=== PATIENT | male | born 1945 | race Caucasian/White ===

== ENCOUNTER 2017-11-17 14:11 | Emergency (ER) | payer MEDICARE, OTHER ==
[2017-11-17] MEDS ORDERED: Famotidine 20 MG/2 ML SDV IVPUSH ONE (14:20)
[2017-11-17] MEDS ORDERED: Pantoprazole 40 MG Vial IVPUSH ONE (14:20)
[2017-11-17] MEDS ORDERED: Sodium Chloride 0.9% 10 ML Syringe FLUSH PRN (14:20)
--- NOTE | 2017-11-17 14:20 | EDM.PDOC ---
ED HPI GENERAL MEDICAL PROBLEM - General Chief Complaint: Abdominal Pain Stated Complaint: Abd pain Time Seen by Provider: 11/17/17 14:15 Source of Information: Reports: Patient, Care Home Records (Very limited records), Old Records ([facility] EMR. No paper hospital chart available. Very limited records available) History Limitations: Reports: Altered Mental Status - History of Present Illness INITIAL COMMENTS - FREE TEXT/NARRATIVE: The patient was brought to the emergency room via transport vehicle from [facility] in [place] for evaluation of a four-week history of somewhat progressive intermittent nonspecific generalized abdominal complaints with apparent previous recent workup by his regular providers, however specifics unknown at this time. The patient is an extremely poor historian secondary to his baseline organic brain syndrome. The patient denies any chest pain/pressure, heart flutter, dizziness, orthostasis, orthopnea, diaphoresis, paresthesias, recent decreased exercise tolerance, or any other anginal-type symptoms. No recent history of heartburn, nausea, diarrhea, melena, gross hematochezia, or any food intolerance, including fatty foods, etc. with normal bowel movement yesterday despite his history of constipation. He denies any current UTI symptoms. The patient also denies any recent fever, cough, wheezing , dyspnea, etc.. No history of recent headaches, visual changes, diplopia, change in mental status, or other change in neurological status. Onset: Gradual Duration: Week(s): (As above), Getting Worse, Intermittent Quality: Reports: Same as Previous Episode Severity: Moderate Improves with: Reports: None Worsens with: Reports: None Context: Reports: Other (As above) Associated Symptoms: Reports: Confusion (Stable chronic). 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) (None) Abdominal Pain Score (Numeric/FACES): 5 - Related Data Allergies Allergy/AdvReac Type Severity Reaction Status Date / Time amoxicillin Allergy Nausea Verified 11/17/17 14:15 cephalexin Allergy Nausea Verified 11/17/17 14:15 clavulanic acid Allergy Nausea Verified 11/17/17 14:15 [From Augmentin] codeine Allergy Nausea Verified 11/17/17 14:15 metoclopramide Allergy Nausea Verified 11/17/17 14:15 Home Meds: Home Meds Albuterol Sulfate [Proair Respiclick] 2 puff IH Q6HR PRN 11/17/17 [History] Albuterol Sulfate [Proair Respiclick] 90 mcg IH BID 11/17/17 [History] Alum Hydrox/Mag Hydrox/Simeth [Mag-Al Plus] 5 ml PO TID PRN 11/17/17 [History] Bisacodyl 5 mg PO DAILY PRN 11/17/17 [History] Calcium Carbonate [Tums Extra Strength] 750 mg PO ASDIRECTED 11/17/17 [History] Cholecalciferol (Vitamin D3) [Vitamin D3] 2,000 unit PO DAILY 11/17/17 [History] Clopidogrel Bisulfate [Clopidogrel] 75 mg PO DAILY 11/17/17 [History] Gregg Tar [Therapeutic Shampoo] 1 applic TP DAILY 11/17/17 [History] DULoxetine [Cymbalta] 60 mg PO DAILY 11/17/17 [History] Fluticasone Furoate [Flonase Sensimist] 2 sprays INH DAILY 11/17/17 [History] Folic Acid 1 mg PO DAILY@1200 11/17/17 [History] Furosemide 40 mg PO DAILY 11/17/17 [History] Insulin Aspart [NovoLOG] 3 units SUBCUT TID 11/17/17 [History] Insulin Glargine,Hum.Rec.Anlog [Lantus Solostar] 12 unit SQ DAILY 11/17/17 [ History] Isosorbide Mononitrate [Isosorbide Mononitrate ER] 60 mg PO DAILY 11/17/17 [ History] Lidocaine 4% [LMX 4 Cream with Tegaderm] 1 each TD BID 11/17/17 [History] Lidocaine 5% [Lidoderm 5%] 1,400 mg .XX BID 11/17/17 [History] Methotrexate Sodium [Methotrexate] 4 tab PO MO@0800 11/17/17 [History] Methyl Salicylate/Menthol [Muscle Rub Cream] 1 applic TD BID PRN 11/17/17 [ History] Methyl Salicylate/Menthol [Muscle Rub] 1 applic TP BID 11/17/17 [History] Metoprolol Tartrate 12.5 mg PO BID 11/17/17 [History] Nitroglycerin 0.4 mg SL ASDIRECTED PRN 11/17/17 [History] Non-Formulary Medication [NF Drug] 1 applic TD QID PRN 11/17/17 [History] Omeprazole 40 mg PO DAILY 11/17/17 [History] Pectin [Throat Drops] 6 mg PO Q2HR 11/17/17 [History] Potassium Chloride 10 meq PO DAILY@1200 11/17/17 [History] Pravastatin Sodium [Pravachol] 10 mg PO DAILY 11/17/17 [History] Pregabalin [Lyrica] 100 mg PO TID 11/17/17 [History] Riboflavin [Vitamin B-2] 200 mg PO DAILY 11/17/17 [History] Sennosides/Docusate Sodium [Sennosides-Docusate Sodium] 1 each PO BID 11/17/17 [ History] Testosterone Cypionate [Depo-Testosterone] 200 mg IM ASDIRECTED 11/17/17 [ History] Triamcinolone Acetonide [Triamcinolone Acetonide 0.1% Crm] 1 applic TOP BID PRN 11/17/17 [History] amLODIPine [Norvasc] 5 mg PO DAILY 11/17/17 [History] diphenhydrAMINE HCl [Benadryl] 25 mg PO Q8HR PRN 11/17/17 [History] fentaNYL [Fentanyl] 12 mcg TD ASDIRECTED 11/17/17 [History] fentaNYL [Fentanyl] 25 mcg TD ASDIRECTED 11/17/17 [History] glipiZIDE [Glucotrol] 20 mg PO DAILY 11/17/17 [History] guaiFENesin/Dextromethorphan [Tussin Dm Cough Syrup] 5 ml PO Q4HR PRN 11/17/17 [ History] hydrOXYzine Pamoate [Hydroxyzine Pamoate] 25 mg PO TID 11/17/17 [History] oxyCODONE 5 mg PO QID PRN 11/17/17 [History] Past Medical History HEENT History: Reports: Allergic Rhinitis, Cataract, Hard of Hearing, Impaired Vision, Other (See Below). Denies: Glaucoma, Macular Degeneration Other HEENT History: Presbycusis with bilateral hearing aid therapy. Patient wears glasses. Possible diabetic retinopathy with additional history of right sided ischemic optic neuropathy Cardiovascular History: Reports: Arrhythmia, CAD, Cardiomyopathy, Heart Failure , High Cholesterol, Hypertension, IA, PVD, Other (See Below) Other Cardiovascular History: Complete bifascicular bundle-branch block with cardiomegaly Respiratory History: Reports: COPD, Intubation, Previous, Sleep Apnea. Denies: Intubation, Difficult Gastrointestinal History: Reports: Chronic Constipation, Colon Polyp, GERD, Hiatal Hernia Genitourinary History: Reports: BPH, Chronic Renal Insuffiency, Diabetic Nephropathy, Other (See Below) Other Genitourinary History: Stage III diabetic nephropathy Musculoskeletal History: Reports: Arthritis, Back Pain, Chronic, Fracture, Neck Pain, Chronic, Osteoarthritis, Osteoporosis, Other (See Below) Other Musculoskeletal History: Left shoulder fracture with status post surgery as below? 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 Endocrine/Metabolic History: Reports: Diabetes, Type II, IDDM, Obesity/BMI 30+, Osteopenia, Osteoporosis, Vitamin D Deficiency, Other (See Below) Other Endocrine/Metabolic History: Hypokalemia, testosterone deficiency Hematologic History: Reports: Anemia, B12 Deficiency Immunologic History: Reports: None Dermatologic History: Reports: Other (See Below) Other Dermatologic History: Recurrent tinea corporis - Past Surgical History HEENT Surgical History: Reports: Cataract Surgery, Oral Surgery, Other (See Below) Other HEENT Surgeries/Procedures: Multiple teeth extractions Cardiovascular Surgical History: Reports: Carotid Endarterectomy, Coronary Artery Bypass, Coronary Artery Stent GI Surgical History: Reports: Colonoscopy, Polypectomy Musculoskeletal Surgical History: Reports: Joint Replacement, Shoulder Surgery, Other (See Below) Other Musculoskeletal Surgeries/Procedures:: Left shoulder arthroplasty Social & Family History - Tobacco Use Smoking Status *Q: Never Smoker Used Tobacco, but Quit: No Smoking Cessation Information Provided To Patient: No Second Hand Smoke Education Provided: No - Living Situation & Occupation Living situation: Reports: Extended Care Facility ([facility] in [place]) Occupation: Retired ED ROS GENERAL - Review of Systems Review Of Systems: ROS reveals no pertinent complaints other than HPI. ED EXAM, GI/ABD - Physical Exam Exam: See Below Exam Limited By: Altered Mental Status General Appearance: Alert, WD/WN, No Apparent Distress Eyes: Bilateral: Normal Appearance (No nystagmus), EOMI Ears: Normal External Exam, Normal Canal, Normal TMs. No: Hearing Grossly Normal, Hearing Loss (Bilateral presbycusis with left-sided hearing aid today) Nose: Normal Inspection, Normal Mucosa, No Blood. No: Clear Rhinorrhea Throat/Mouth: Normal Lips, Normal Gums, Normal Oropharynx, Normal Voice, No Airway Compromise. No: Normal Teeth (Multiple missing teeth with no evidence of infection), Dysphagia, Inflammation, Perioral Cyanosis Head: Atraumatic, Normocephalic. No: Facial Swelling, Facial Tenderness, Sinus Tenderness Neck: Normal Inspection, Supple, Non-Tender, Full Range of Motion, Carotid Bruit (Mild bilateral carotid bruits). No: Lymphadenopathy (L), Lymphadenopathy (R), Thyromegaly Respiratory/Chest: No Respiratory Distress, No Accessory Muscle Use, Chest Non- Tender, Rales (Bilateral basilar mild). No: Pleural Rub, Retractions Cardiovascular: Normal Peripheral Pulses, Regular Rate, Rhythm, No Edema, No Gallop, No JVD, No Murmur, No Rub. No: Gallop/S3, Gallop/S4, Friction Rub GI/Abdominal Exam: Normal Bowel Sounds, Soft, Non-Tender, No Organomegaly, No Distention, No Abnormal Bruit, No Mass, Pelvis Stable, Other (Obese). No: Guarding (Male) Exam: Deferred Rectal (Males) Exam: Deferred Back Exam: Normal Inspection, Full Range of Motion. No: CVA Tenderness (L), CVA Tenderness (R), Muscle Spasm Extremities: Normal Inspection, Normal Range of Motion, Non-Tender, No Pedal Edema, Normal Capillary Refill. No: Emma's Sign Neurological: Alert, CN II-XII Intact, Normal Reflexes (Negative Babinski's), No Motor/Sensory Deficits, Confused (Stable mild baseline organic brain syndrome by history), Abnormal Gait (Requires walker chair with stable deficits by history), Other (Mild resting tremor with additional mild to moderate rigidity and cogwheeling). No: Normal Gait Psychiatric: Anxious (Mild), Depressed Mood (Mild). No: Tearful Skin Exam: Warm, Dry, Intact, Normal Color, No Rash, Ecchymosis (Stable). No: Diaphoretic, Wound/Incision Lymphatic: No Adenopathy EKG INTERPRETATION EKG Date: 11/17/17 Time: 15:46 Rhythm: NSR Rate (Beats/Min): 87 [place]: Normal (Neutral) P-Wave: Enlarged (Mild diffuse biphasic P waves with extreme poor R-wave progression in the anterior leads) QRS: Other (QRS interval of 0.16 seconds representing a complete bifascicular bundle-branch block with peaked T waves, nonspecific ST changes and left ventricular hypertrophy by voltage) ST-T: Normal (As above) QT: Normal Comparison: NA - No Prior EKG EKG Interpretation Comments: 1. No acute ischemic changes 2. Complete bifascicular bundle-branch block 3. Left atrial enlargement 4. Cardiomegaly by EKG Course - Vital Signs Last Recorded V/S: Last Vital Signs Temp 36.8 C 11/17/17 15:23 Pulse 97 11/17/17 15:23 Resp 18 11/17/17 15:23 BP 136/69 11/17/17 15:23 Pulse Ox 94 L 11/17/17 15:23 Vital Signs - 24 hr 11/17/17 15:23 Temperature [ 36.8 C Temporal] Pulse, 97 Peripheral [ Right Pulse Oximetry] Respiratory 18 Rate Blood Pressure 136/69 [Right Upper Arm] O2 Sat by Pulse 94 L Oximetry - Orders/Labs/Meds Orders: Active Orders 24 hr Category Date Time Status Cardiac Monitoring [RC] . DIRECTED Care 11/17/17 15:00 Active EKG Documentation Completion [RC] ASDIRECTED Care 11/17/17 15:32 Active Peripheral IV Care [RC] . DIRECTED Care 11/17/17 14:20 Active Nothing Per Oral Diet [DIET] Diet 11/17/17 Breakfast Active Abdomen Series w Chest 1V [CR] Stat Exams 11/17/17 14:20 Taken CULTURE URINE [RM] Stat Lab 11/17/17 15:40 Ordered UA W/MICROSCOPIC [URIN] Stat Lab 11/17/17 15:40 Ordered Sodium Chloride 0.9% [Saline Flush] Med 11/17/17 14:20 Active 10 ml FLUSH ASDIRECTED PRN Obtain Past Medical Record [OM.PC] Urgent Oth 11/17/17 14:20 Active Peripheral IV Insertion Adult [OM.PC] Stat Oth 11/17/17 14:20 Ordered Resuscitation Status Stat Resus Stat 11/17/17 14:20 Ordered Medication Orders Sodium Chloride (Saline Flush) 10 ml FLUSH ASDIRECTED PRN PRN Reason: Keep Vein Open Last Admin: 11/17/17 15:02 Dose: 10 ml Labs: Laboratory Tests 11/17/17 11/17/17 11/17/17 Range/Units 14:25 14:25 14:25 WBC 9.1 (4.0-10.2) K/uL RBC 5.06 (4.33-5.41) M/uL Hgb 14.7 (13.1-16.8) g/dL Hct 44.4 (39.0-49.0) % MCV 87.7 (84.0-98.0) fL MCH 29.1 (28.2-33.3) pg MCHC 33.1 (31.7-36.0) g/dL RDW 15.5 H (11.2-14.1) % Plt Count 221 (150-350) K/uL Neut % (Auto) 75.3 (45.0-80.0) % Lymph % (Auto) 12.8 (10.0-50.0) % [place] % (Auto) 9.1 (2.0-14.0) % Eos % (Auto) 2.7 (0.0-5.0) % Baso % (Auto) 0.1 (0.0-2.0) % Neut # (Auto) 6.85 (1.40-7.00) K/uL Lymph # (Auto) 1.17 (0.50-3.50) K/uL [place] # (Auto) 0.83 (0.00-1.00) K/uL Eos # (Auto) 0.25 (0.00-0.50) K/uL Baso # (Auto) 0.01 (0.00-0.20) K/uL PT 10.5 (9.8-11.7) SEC INR 1.0 APTT 25.1 (22.1-29.8) SEC Sodium (136-145) mmol/L Potassium (3.5-5.1) mmol/L Chloride (98-107) mmol/L Carbon Dioxide (21.0-32.0) mmol/L BUN (7-18) mg/dL Creatinine (0.51-1.17) mg/dL Est Cr Clr Drug Dosing mL/min Estimated GFR (MDRD) mL/min Glucose (74-106) mg/dL Lactic Acid (0.4-2.0) mmol/L Uric Acid (2.6-7.2) mg/dL Calcium (8.5-10.1) mg/dL Magnesium (1.8-2.4) mg/dL Total Bilirubin (0.2-1.0) mg/dL AST (15-37) U/L ALT (12-78) U/L Alkaline Phosphatase (46-116) IU/L Creatine Kinase (26-308) U/L Creatine Kinase Index (0.0-2.5) % CK-MB (CK-2) (0.00-3.60) ng/mL Troponin I (0.000-0.056) ng/mL NT-Pro-B Natriuret Pep (0-125) pg/mL Total Protein (6.4-8.2) g/dL Albumin (3.4-5.0) g/dL Amylase 48 (25-115) U/L Lipase (73-393) U/L Specimen Type Urine Color Urine Appearance Urine pH (5.0-9.0) Ur Specific [place] (1.005-1.030) Urine Protein (NEGATIVE) mg/dL Urine Glucose (UA) (NEGATIVE) mg/dL Urine Ketones (NEGATIVE) mg/dL Urine Occult Blood (NEGATIVE) Urine Nitrite (NEGATIVE) Urine Bilirubin (NEGATIVE) Urine Urobilinogen (0.2-1.0) E.U./dL Ur Leukocyte Esterase (NEGATIVE) Urine RBC /HPF Urine WBC /HPF Ur Epithelial Cells /LPF Urine Bacteria (NONE TO FEW) /HPF 11/17/17 11/17/17 11/17/17 Range/Units 14:25 14:25 14:25 WBC (4.0-10.2) K/uL RBC (4.33-5.41) M/uL Hgb (13.1-16.8) g/dL Hct (39.0-49.0) % MCV (84.0-98.0) fL MCH (28.2-33.3) pg MCHC (31.7-36.0) g/dL RDW (11.2-14.1) % Plt Count (150-350) K/uL Neut % (Auto) (45.0-80.0) % Lymph % (Auto) (10.0-50.0) % [place] % (Auto) (2.0-14.0) % Eos % (Auto) (0.0-5.0) % Baso % (Auto) (0.0-2.0) % Neut # (Auto) (1.40-7.00) K/uL Lymph # (Auto) (0.50-3.50) K/uL [place] # (Auto) (0.00-1.00) K/uL Eos # (Auto) (0.00-0.50) K/uL Baso # (Auto) (0.00-0.20) K/uL PT (9.8-11.7) SEC INR APTT (22.1-29.8) SEC Sodium 137 (136-145) mmol/L Potassium 4.5 (3.5-5.1) mmol/L Chloride 101 (98-107) mmol/L Carbon Dioxide 30.0 (21.0-32.0) mmol/L BUN 22 H (7-18) mg/dL Creatinine 1.44 H (0.51-1.17) mg/dL Est Cr Clr Drug Dosing 43.54 mL/min Estimated GFR (MDRD) 48 mL/min Glucose 264 H* (74-106) mg/dL Lactic Acid 1.1 (0.4-2.0) mmol/L Uric Acid 5.5 (2.6-7.2) mg/dL Calcium 8.5 (8.5-10.1) mg/dL Magnesium 1.9 (1.8-2.4) mg/dL Total Bilirubin 0.4 (0.2-1.0) mg/dL AST 20 (15-37) U/L ALT 25 (12-78) U/L Alkaline Phosphatase 92 (46-116) IU/L Creatine Kinase 217 (26-308) U/L Creatine Kinase Index 1.5 (0.0-2.5) % CK-MB (CK-2) 3.20 (0.00-3.60) ng/mL Troponin I 0.008 (0.000-0.056) ng/mL NT-Pro-B Natriuret Pep 262 H (0-125) pg/mL Total Protein 7.7 (6.4-8.2) g/dL Albumin 3.7 (3.4-5.0) g/dL Amylase (25-115) U/L Lipase 177 (73-393) U/L Specimen Type Urine Color Urine Appearance Urine pH (5.0-9.0) Ur Specific [place] (1.005-1.030) Urine Protein (NEGATIVE) mg/dL Urine Glucose (UA) (NEGATIVE) mg/dL Urine Ketones (NEGATIVE) mg/dL Urine Occult Blood (NEGATIVE) Urine Nitrite (NEGATIVE) Urine Bilirubin (NEGATIVE) Urine Urobilinogen (0.2-1.0) E.U./dL Ur Leukocyte Esterase (NEGATIVE) Urine RBC /HPF Urine WBC /HPF Ur Epithelial Cells /LPF Urine Bacteria (NONE TO FEW) /HPF 11/17/17 Range/Units 15:40 WBC (4.0-10.2) K/uL RBC (4.33-5.41) M/uL Hgb (13.1-16.8) g/dL Hct (39.0-49.0) % MCV (84.0-98.0) fL MCH (28.2-33.3) pg MCHC (31.7-36.0) g/dL RDW (11.2-14.1) % Plt Count (150-350) K/uL Neut % (Auto) (45.0-80.0) % Lymph % (Auto) (10.0-50.0) % [place] % (Auto) (2.0-14.0) % Eos % (Auto) (0.0-5.0) % Baso % (Auto) (0.0-2.0) % Neut # (Auto) (1.40-7.00) K/uL Lymph # (Auto) (0.50-3.50) K/uL [place] # (Auto) (0.00-1.00) K/uL Eos # (Auto) (0.00-0.50) K/uL Baso # (Auto) (0.00-0.20) K/uL PT (9.8-11.7) SEC INR APTT (22.1-29.8) SEC Sodium (136-145) mmol/L Potassium (3.5-5.1) mmol/L Chloride (98-107) mmol/L Carbon Dioxide (21.0-32.0) mmol/L BUN (7-18) mg/dL Creatinine (0.51-1.17) mg/dL Est Cr Clr Drug Dosing mL/min Estimated GFR (MDRD) mL/min Glucose (74-106) mg/dL Lactic Acid (0.4-2.0) mmol/L Uric Acid (2.6-7.2) mg/dL Calcium (8.5-10.1) mg/dL Magnesium (1.8-2.4) mg/dL Total Bilirubin (0.2-1.0) mg/dL AST (15-37) U/L ALT (12-78) U/L Alkaline Phosphatase (46-116) IU/L Creatine Kinase (26-308) U/L Creatine Kinase Index (0.0-2.5) % CK-MB (CK-2) (0.00-3.60) ng/mL Troponin I (0.000-0.056) ng/mL NT-Pro-B Natriuret Pep (0-125) pg/mL Total Protein (6.4-8.2) g/dL Albumin (3.4-5.0) g/dL Amylase (25-115) U/L Lipase (73-393) U/L Specimen Type Urincc Urine Color Yellow Urine Appearance Clear Urine pH 5.5 (5.0-9.0) Ur Specific [place] 1.010 (1.005-1.030) Urine Protein Negative (NEGATIVE) mg/dL Urine Glucose (UA) 100 H (NEGATIVE) mg/dL Urine Ketones Negative (NEGATIVE) mg/dL Urine Occult Blood Negative (NEGATIVE) Urine Nitrite Negative (NEGATIVE) Urine Bilirubin Negative (NEGATIVE) Urine Urobilinogen 0.2 (0.2-1.0) E.U./dL Ur Leukocyte Esterase Trace H (NEGATIVE) Urine RBC 0-5 /HPF Urine WBC 0-5 /HPF Ur Epithelial Cells Rare /LPF Urine Bacteria Rare (NONE TO FEW) /HPF Urine specimen set up for culture and sensitivity Meds: Medications Generic Name Dose Route Start Last Admin Trade Name Freq PRN Reason Stop Dose Admin Sodium Chloride 10 ml 11/17/17 14:20 11/17/17 15:02 Saline Flush FLUSH 10 ml ASDIRECTED PRN Administration Keep Vein Open Discontinued Medications Generic Name Dose Route Start Last Admin Trade Name Herb PRN Reason Stop Dose Admin Famotidine 40 mg 11/17/17 14:20 11/17/17 15:02 Pepcid IVPUSH 11/17/17 14:21 40 mg ONETIME ONE Administration Furosemide 60 mg 11/17/17 14:55 11/17/17 15:01 Lasix IVPUSH 11/17/17 14:56 60 mg NOW ONE Administration Pantoprazole Sodium 40 mg 11/17/17 14:20 11/17/17 15:01 Protonix Iv IVPUSH 11/17/17 14:21 40 mg ONETIME ONE Administration - Radiology Interpretation Free Text/Narrative:: bus monitor shows normal sinus rhythm with heart rate in the 90s with no ectopy or arrhythmia Acute abdominal x-ray shows evidence of status post medial sternotomy with moderate cardiomegaly, mild CHF with the Francine B lines, moderate COPD, and mild to moderate prominence the proximal aortic arch. Additional moderate stool burden present with nonspecific bowel gaseous pattern and no evidence of pneumothorax, pulmonary infiltrates, free air, ileus, obstruction, etc. Note status post left shoulder arthroplasty and moderate osteoarthritic changes. Official x-ray report received prior to patient discharge with overall similar findings as above, however no direct evidence of CHF. Departure - Departure Time of Disposition: 17:10 Disposition: DC/Tfer to [facility] Clinical Impression: Peptic reflux disease, Left bundle branch block, Mixed anxiety depressive disorder, Organic brain syndrome, Parkinson's disease, Renal insufficiency, IDDM (insulin dependent diabetes mellitus) Abdominal pain Qualifiers: Abdominal location: generalized Qualified Code(s): R10.84 - Generalized abdominal pain Coronary artery disease Qualifiers: Coronary Disease-Associated Artery/Lesion type: bypass graft [place] vs. transplanted heart: [place] heart Associated angina: without angina Qualified Code(s): I25.810 - Atherosclerosis of coronary artery bypass graft(s) without angina pectoris Hypertension Qualifiers: Hypertension type: essential hypertension Qualified Code(s): I10 - Essential ( primary) hypertension Hyperlipidemia Qualifiers: Hyperlipidemia type: unspecified Qualified Code(s): E78.5 - Hyperlipidemia, unspecified COPD (chronic obstructive pulmonary disease) Qualifiers: COPD type: emphysema Emphysema type: panlobular Qualified Code(s): J43.1 - Panlobular emphysema Osteoarthritis Qualifiers: Osteoarthritis location: multiple joints Osteoarthritis type: primary Qualified Code(s): M15.0 - Primary generalized (osteo)arthritis CHF (congestive heart failure) Qualifiers: Heart failure type: unspecified Heart failure chronicity: chronic Qualified Code(s): I50.9 - Heart failure, unspecified TIA (transient ischemic attack) Qualifiers: Transient cerebral ischemia type: other Qualified Code(s): G45.8 - Other transient cerebral ischemic attacks and related syndromes - Discharge Information Referrals: PCP,None [Primary Care Provider] - Forms: ED Department Discharge Additional Instructions: 1. Update [facility] in the a.m. concerning patient's symptoms with instructions on further possible workup for his chronic abdominal pain 2. Mild CHF by today's exam with one dose of IV Lasix given in the emergency room 3. Discuss probable new diagnosis of Parkinson's disease based on my clinical exam today with possible additional medical therapy per their instructions 4. Continue strict walker chair use and strict fall precautions - Problem List & Annotations (1) Abdominal pain SNOMED Code(s): 95530636 Code(s): R10.9 - UNSPECIFIED ABDOMINAL PAIN Status: Acute Priority: High Current Visit: Yes Annotation/Comment:: Nonspecific generalized abdominal pain with history of constipation and chronic narcotic use. Apparent recent previous workup, however records not available. [facility] will be updated in the a.m. as per discharge instructions with further workup and treatment per their recommendations. Qualifiers: Abdominal location: generalized Qualified Code(s): R10.84 - Generalized abdominal pain (2) CHF (congestive heart failure) SNOMED Code(s): 61733668 Code(s): I50.9 - HEART FAILURE, UNSPECIFIED Status: Chronic Priority: Medium Current Visit: Yes Annotation/Comment:: No chest pain or anginal type symptoms. Borderline CHF by chest x-ray and mild BNP elevation today. Normal troponin I with mild change secondary to his CHF and chronic renal insufficiency. One dose of IV Lasix therapy given in the emergency room as above with no further change in medical therapy for now. Patient is already on potassium supplementation. Qualifiers: Heart failure type: unspecified Heart failure chronicity: chronic Qualified Code(s): I50.9 - Heart failure, unspecified (3) COPD (chronic obstructive pulmonary disease) SNOMED Code(s): 44364973 Code(s): J44.9 - CHRONIC OBSTRUCTIVE PULMONARY DISEASE, UNSPECIFIED Status : Chronic Priority: Medium Current Visit: Yes Annotation/Comment:: No true recent fever or bronchitic type symptoms. Note additional history of sleep apnea. No change in medical therapy. Uncertain whether patient is on sleep apnea. Qualifiers: COPD type: emphysema Emphysema type: panlobular Qualified Code(s): J43.1 - Panlobular emphysema (4) Coronary artery disease SNOMED Code(s): 35547788 Code(s): I25.10 - ATHSCL HEART DISEASE OF [place] CORONARY ARTERY W/O ANG PCTRS Status: Chronic Priority: Medium Current Visit: Yes Annotation/ Comment:: Status post CABG and previous PTCA/stent. No recent chest pain or anginal complaints. Qualifiers: Coronary Disease-Associated Artery/Lesion type: bypass graft [place] vs. transplanted heart: [place] heart Associated angina: without angina Qualified Code(s): I25.810 - Atherosclerosis of coronary artery bypass graft(s) without angina pectoris (5) Hyperlipidemia SNOMED Code(s): 23109344 Code(s): E78.5 - HYPERLIPIDEMIA, UNSPECIFIED Status: Chronic Priority: Medium Current Visit: Yes Annotation/Comment:: Under therapy Qualifiers: Hyperlipidemia type: unspecified Qualified Code(s): E78.5 - Hyperlipidemia , unspecified (6) Hypertension SNOMED Code(s): 67820602 Code(s): I10 - ESSENTIAL (PRIMARY) HYPERTENSION Status: Chronic Priority : Medium Current Visit: Yes Annotation/Comment:: Stable in the emergency room Qualifiers: Hypertension type: essential hypertension Qualified Code(s): I10 - Essential (primary) hypertension (7) Left bundle branch block SNOMED Code(s): 29845663 Code(s): I44.7 - LEFT BUNDLE-BRANCH BLOCK, UNSPECIFIED Status: Chronic Priority: Medium Current Visit: Yes Annotation/Comment:: No Previous EKGs. Newly diagnosed complete bifascicular bundle-branch block with no chest pain or anginal complaints. Telemetry stable. Observe for now. (8) Mixed anxiety depressive disorder SNOMED Code(s): 656322254 Code(s): F41.8 - OTHER SPECIFIED ANXIETY DISORDERS Status: Chronic Priority: Medium Current Visit: Yes Annotation/Comment:: Continue to observe closely by regular provider with no change in medical therapy for now. (9) Organic brain syndrome SNOMED Code(s): 493233992 Code(s): F09 - UNSP MENTAL DISORDER DUE TO KNOWN PHYSIOLOGICAL CONDITION Status: Chronic Priority: Medium Current Visit: Yes Annotation/Comment:: Stable by history with chronic narcotic use which could affect mental status. Continue to observe closely by regular provider (10) Osteoarthritis SNOMED Code(s): 544200691 Code(s): M19.90 - UNSPECIFIED OSTEOARTHRITIS, UNSPECIFIED SITE Status: Chronic Priority: Medium Current Visit: Yes Annotation/Comment:: Stable by history Qualifiers: Osteoarthritis location: multiple joints Osteoarthritis type: primary Qualified Code(s): M15.0 - Primary generalized (osteo)arthritis (11) Parkinson's disease SNOMED Code(s): 71260108 Code(s): G20 - PARKINSON'S DISEASE Status: Acute Priority: Medium Current Visit: Yes Onset Date: ~11/17/17 Annotation/Comment:: Newly diagnosed by my clinical exam. C to be updated in the a.m. as per discharge instructions (12) IDDM (insulin dependent diabetes mellitus) SNOMED Code(s): 70317874 Code(s): E11.9 - TYPE 2 DIABETES MELLITUS WITHOUT COMPLICATIONS; Z79.4 - FPC (CURRENT) USE OF INSULIN Status: Chronic Priority: Medium Current Visit: Yes Annotation/Comment:: Elevated sugars today. No diabetic nephropathy, neuropathy, etc. Continue to observe closely by regular provider (13) Peptic reflux disease SNOMED Code(s): 858829202 Code(s): K21.9 - GASTRO-ESOPHAGEAL REFLUX DISEASE WITHOUT ESOPHAGITIS Status: Chronic Priority: Medium Current Visit: Yes Annotation/Comment:: Currently under therapy (14) Renal insufficiency SNOMED Code(s): 594936231, 104946806 Code(s): N28.9 - DISORDER OF KIDNEY AND URETER, UNSPECIFIED Status: Chronic Priority: Medium Current Visit: Yes Annotation/Comment:: Stable stage III diabetic nephropathy and chronic renal insufficiency by today's blood work (15) TIA (transient ischemic attack) SNOMED Code(s): 188669530 Code(s): G45.9 - TRANSIENT CEREBRAL ISCHEMIC ATTACK, UNSPECIFIED Status: Chronic Priority: Medium Current Visit: Yes Annotation/Comment:: No apparent change in neurological status. Observe for now Qualifiers: Transient cerebral ischemia type: other Qualified Code(s): G45.8 - Other transient cerebral ischemic attacks and related syndromes - Problem List Review Problem List Initiated/Reviewed/Updated: Yes - My Orders Last 24 Hours: My Active Orders 11/17/17 14:20 Peripheral IV Care [RC] . DIRECTED Abdomen Series w Chest 1V [CR] Stat Sodium Chloride 0.9% [Saline Flush] 10 ml FLUSH ASDIRECTED PRN Obtain Past Medical Record [OM.PC] Urgent Peripheral IV Insertion Adult [OM.PC] Stat Resuscitation Status Stat 11/17/17 15:00 Cardiac Monitoring [RC] . DIRECTED 11/17/17 15:32 EKG Documentation Completion [RC] ASDIRECTED 11/17/17 15:40 CULTURE URINE [RM] Stat UA W/MICROSCOPIC [URIN] Stat 11/17/17 Breakfast Nothing Per Oral Diet [DIET] - Assessment/Plan Last 24 Hours: My Active Orders 11/17/17 14:20 Peripheral IV Care [RC] . DIRECTED Abdomen Series w Chest 1V [CR] Stat Sodium Chloride 0.9% [Saline Flush] 10 ml FLUSH ASDIRECTED PRN Obtain Past Medical Record [OM.PC] Urgent Peripheral IV Insertion Adult [OM.PC] Stat Resuscitation Status Stat 11/17/17 15:00 Cardiac Monitoring [RC] . DIRECTED 11/17/17 15:32 EKG Documentation Completion [RC] ASDIRECTED 11/17/17 15:40 CULTURE URINE [RM] Stat UA W/MICROSCOPIC [URIN] Stat 11/17/17 Breakfast Nothing Per Oral Diet [DIET] Assessment:: As above Plan: As above. Extensive precautions were given to the patient, who is in agreement with the treatment plan. See Patient Instructions for further treatment and plan.
[2017-11-17] MEDS ORDERED: Furosemide 40 MG/4 ML VIAL IVPUSH ONE (14:55)
== END 2017-11-17 17:06 ==
LOC: LL.ED 14:11
DX: G45.8 Other transient cerebral ischemic attacks and related syndromes (principal); F09 Unspecified mental disorder due to known physiological condition; I44.7 Left bundle-branch block, unspecified; G20 Parkinson's disease; R10.84 Generalized abdominal pain; I25.810 Atherosclerosis of coronary artery bypass graft(s) without angina pectoris; M15.0 Primary generalized (osteo)arthritis; E78.5 Hyperlipidemia, unspecified; I13.0 Hypertensive heart and chronic kidney disease with heart failure and stage 1 through stage 4 chronic kidney disease, or unspecified chronic kidney disease; I50.9 Heart failure, unspecified; E11.21 Type 2 diabetes mellitus with diabetic nephropathy; E11.22 Type 2 diabetes mellitus with diabetic chronic kidney disease; N18.9 Chronic kidney disease, unspecified; I25.2 Old myocardial infarction; E11.40 Type 2 diabetes mellitus with diabetic neuropathy, unspecified; K21.9 Gastro-esophageal reflux disease without esophagitis; J43.1 Panlobular emphysema; F41.8 Other specified anxiety disorders; Z88.8 Allergy status to other drugs, medicaments and biological substances; Z88.1 Allergy status to other antibiotic agents; Z88.5 Allergy status to narcotic agent; Z79.899 Other long term (current) drug therapy
CPT/HCPCS: 36415; 74022; 80053; 81001; 82150; 82550; 82553; 83605; 83690; 83735; 83880; 84484; 84550; 85025; 85610; 85730; 87086; 93005; 96374; 96375; 99285; C9113; J1940; J7050; 93010; 99284; S0028

== ENCOUNTER 2018-01-25 12:44 | Emergency (ER) | payer OTHER ==
[2018-01-25 13:39] LABS: CHLORIDE,CL 101 mmol/L (98-107); SODIUM,NA 138 mmol/L (136-145)
--- NOTE | 2018-01-25 13:56 | EDM.PDOC ---
ED HPI GENERAL MEDICAL PROBLEM - General Chief Complaint: Behavioral/Psych Stated Complaint: hallucinations started 1 month ago, worsened now Time Seen by Provider: 01/25/18 12:55 Source of Information: Reports: Patient, Old Records, RN Notes Reviewed - History of Present Illness INITIAL COMMENTS - FREE TEXT/NARRATIVE: Patient is a 72-year-old gentleman who is seen with visual hallucinations and very reliable personality sometimes he is happy sometimes is depressed sometimes is aggressive verbally towards the nurses at this time patient was seen denied any suicidal ideations start that he is feeling better I spoke to his psychiatrist Dr. Tellez at the [facility] which agreed that we should continue his Abilify 5 mg daily for couple days and then see how he's doing and if we need to go up to go up to 7.5 he started taking the Abilify yesterday therefore he's only had 1 dose Onset: Gradual Duration: Week(s):, Getting Worse Location: Reports: Head Severity: Moderate Improves with: Reports: None Worsens with: Reports: None Associated Symptoms: Reports: No Other Symptoms - Related Data Allergies Allergy/AdvReac Type Severity Reaction Status Date / Time amoxicillin Allergy Nausea Verified 01/25/18 12:47 cephalexin Allergy Nausea Verified 01/25/18 12:47 clavulanic acid Allergy Nausea Verified 01/25/18 12:47 [From Augmentin] codeine Allergy Nausea Verified 01/25/18 12:47 metoclopramide Allergy Nausea Verified 01/25/18 12:47 Home Meds: Home Meds Albuterol Sulfate [Proair Respiclick] 2 puff IH Q6HR PRN 11/17/17 [History] Albuterol Sulfate [Proair Respiclick] 90 mcg IH BID 11/17/17 [History] Alum Hydrox/Mag Hydrox/Simeth [Mag-Al Plus] 5 ml PO TID PRN 11/17/17 [History] Cholecalciferol (Vitamin D3) [Vitamin D3] 2,000 unit PO DAILY 11/17/17 [History] Clopidogrel Bisulfate [Clopidogrel] 75 mg PO DAILY 11/17/17 [History] [place] Tar [Therapeutic Shampoo] 1 applic TP DAILY 11/17/17 [History] DULoxetine [Cymbalta] 60 mg PO DAILY 11/17/17 [History] Fluticasone Furoate [Flonase Sensimist] 2 sprays INH DAILY 11/17/17 [History] Folic Acid 1 mg PO DAILY@1200 11/17/17 [History] Furosemide 40 mg PO DAILY 11/17/17 [History] Insulin Aspart [NovoLOG] 3 units SUBCUT TID 11/17/17 [History] Insulin Glargine,Hum.Rec.Anlog [Lantus Solostar] 12 unit SQ DAILY 11/17/17 [ History] Isosorbide Mononitrate [Isosorbide Mononitrate ER] 60 mg PO DAILY 11/17/17 [ History] Lidocaine 4% [LMX 4 Cream with Tegaderm] 1 each TD BID 11/17/17 [History] Lidocaine 5% [Lidoderm 5%] 1,400 mg .XX BID 11/17/17 [History] Methotrexate Sodium [Methotrexate] 4 tab PO MO@0800 11/17/17 [History] Methyl Salicylate/Menthol [Muscle Rub Cream] 1 applic TD BID PRN 11/17/17 [ History] Methyl Salicylate/Menthol [Muscle Rub] 1 applic TP BID 11/17/17 [History] Metoprolol Tartrate 12.5 mg PO BID 11/17/17 [History] Nitroglycerin 0.4 mg SL ASDIRECTED PRN 11/17/17 [History] Non-Formulary Medication [NF Drug] 1 applic TD QID PRN 11/17/17 [History] Omeprazole 40 mg PO DAILY 11/17/17 [History] Pectin [Throat Drops] 6 mg PO Q2HR 11/17/17 [History] Potassium Chloride 10 meq PO DAILY@1200 11/17/17 [History] Pravastatin Sodium [Pravachol] 10 mg PO DAILY 11/17/17 [History] Pregabalin [Lyrica] 100 mg PO TID 11/17/17 [History] Riboflavin [Vitamin B-2] 200 mg PO DAILY 11/17/17 [History] Sennosides/Docusate Sodium [Sennosides-Docusate Sodium] 1 each PO BID 11/17/17 [ History] Testosterone Cypionate [Depo-Testosterone] 200 mg IM ASDIRECTED 11/17/17 [ History] Triamcinolone Acetonide [Triamcinolone Acetonide 0.1% Crm] 1 applic TOP BID PRN 11/17/17 [History] amLODIPine [Norvasc] 5 mg PO DAILY 11/17/17 [History] diphenhydrAMINE HCl [Benadryl] 25 mg PO Q8HR PRN 11/17/17 [History] fentaNYL [Fentanyl] 12 mcg TD ASDIRECTED 11/17/17 [History] fentaNYL [Fentanyl] 25 mcg TD ASDIRECTED 11/17/17 [History] glipiZIDE [Glucotrol] 20 mg PO DAILY 11/17/17 [History] guaiFENesin/Dextromethorphan [Gs Tussin Dm Cough Syrup] 5 ml PO Q4HR PRN [History] hydrOXYzine Pamoate [Hydroxyzine Pamoate] 25 mg PO TID 11/17/17 [History] oxyCODONE 5 mg PO QID PRN 11/17/17 [History] ARIPiprazole [Abilify] 2.5 mg PO DAILY 01/25/18 [History] Albuterol Sulfate [Proair Respiclick] 90 mcg IH BID 01/25/18 [History] Past Medical History HEENT History: Reports: Allergic Rhinitis, Cataract, Hard of Hearing, Impaired Vision, Other (See Below) Other HEENT History: Presbycusis with bilateral hearing aid therapy. Patient wears glasses. Possible diabetic retinopathy with additional history of right sided ischemic optic neuropathy Cardiovascular History: Reports: Arrhythmia, CAD, Cardiomyopathy, Heart Failure , High Cholesterol, Hypertension, [place], PVD, Other (See Below) Other Cardiovascular History: Complete bifascicular bundle-branch block with cardiomegaly Respiratory History: Reports: COPD, Intubation, Previous, Sleep Apnea Gastrointestinal History: Reports: Chronic Constipation, Colon Polyp, GERD, Hiatal Hernia Genitourinary History: Reports: BPH, Chronic Renal Insuffiency, Diabetic Nephropathy, Other (See Below) Other Genitourinary History: Stage III diabetic nephropathy Musculoskeletal History: Reports: Arthritis, Back Pain, Chronic, Fracture, Neck Pain, Chronic, Osteoarthritis, Osteoporosis, Other (See Below) Other Musculoskeletal History: Left shoulder fracture with status post surgery as below? 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 Endocrine/Metabolic History: Reports: Diabetes, Type II, IDDM, Obesity/BMI 30+, Osteopenia, Osteoporosis, Vitamin D Deficiency, Other (See Below) Other Endocrine/Metabolic History: Hypokalemia, testosterone deficiency Hematologic History: Reports: Anemia, B12 Deficiency Immunologic History: Reports: None Dermatologic History: Reports: Other (See Below) Other Dermatologic History: Recurrent tinea corporis - Past Surgical History HEENT Surgical History: Reports: Cataract Surgery, Oral Surgery, Other (See Below) Other HEENT Surgeries/Procedures: Multiple teeth extractions Cardiovascular Surgical History: Reports: Carotid Endarterectomy, Coronary Artery Bypass, Coronary Artery Stent GI Surgical History: Reports: Colonoscopy, Polypectomy Musculoskeletal Surgical History: Reports: Joint Replacement, Shoulder Surgery, Other (See Below) Other Musculoskeletal Surgeries/Procedures:: Left shoulder arthroplasty Social & Family History - Living Situation & Occupation Living situation: Reports: Extended Care Facility ([facility] in [place]) Occupation: Retired ED ROS ALLERGIC REACTION - Review of Systems Review Of Systems: See Below Constitutional: Reports: No Symptoms HEENT: Reports: No Symptoms Respiratory: Reports: No Symptoms Cardiovascular: Reports: Blood Pressure Problem (Norvasc 5 mg a day), Lightheadedness Endocrine: Reports: High Glucose GI/Abdominal: Reports: No Symptoms : Reports: No Symptoms Musculoskeletal: Reports: No Symptoms Skin: Reports: No Symptoms Neurological: Reports: Dizziness Psychiatric: Reports: Agitation, Hallucinations Hematologic/Lymphatic: Reports: No Symptoms Immunologic: Reports: No Symptoms ED EXAM GENERAL NO PERIP PULSE - Physical Exam Exam: See Below General Appearance: Alert, WD/WN, No Apparent Distress Eye Exam: Bilateral Eye: EOMI, PERRL Nose: Normal Inspection, Normal Mucosa, No Blood Throat/Mouth: Normal Inspection, Normal Lips, Normal Teeth, Normal Gums, Normal Oropharynx, Normal Voice, No Airway Compromise Head: Normocephalic, Other (Occiput hematoma secondary to fall) Neck: Normal Inspection, Supple, Non-Tender, Full Range of Motion Respiratory/Chest: No Respiratory Distress, Lungs Clear, Normal Breath Sounds, No Accessory Muscle Use, Chest Non-Tender Cardiovascular: Normal Peripheral Pulses, Regular Rate, Rhythm, No Edema, No Gallop, No JVD, No Murmur, No Rub GI/Abdominal: Normal Bowel Sounds (Male) Exam: Deferred Rectal (Males) Exam: Deferred Back Exam: Normal Inspection, Full Range of Motion, NT Extremities: Normal Inspection, Normal Range of Motion, Non-Tender, Normal Capillary Refill, No Pedal Edema Neurological: Oriented, CN II-XII Intact, Other (Patient having visual and hallucinations) Psychiatric: Other (Patient had visual hallucinations) Skin Exam: Intact Lymphatic: No Adenopathy Course - Vital Signs Last Recorded V/S: Last Vital Signs Temp 98.8 F 01/25/18 12:48 Pulse 90 01/25/18 12:48 Resp 24 H 01/25/18 12:48 BP 152/69 H 01/25/18 12:48 Pulse Ox 92 L 01/25/18 12:48 - Orders/Labs/Meds Orders: Active Orders 24 hr Category Date Time Status Head wo Cont [CT] Stat Exams 01/25/18 13:06 Ordered CBC W/O DIFF,HEMOGRAM [HEME] AM Lab 01/26/18 05:11 Ordered UA W/MICROSCOPIC [URIN] Stat Lab 01/25/18 13:08 Ordered Labs: Laboratory Tests 01/25/18 Range/Units 13:15 Sodium 138 (136-145) mmol/L Potassium 4.1 (3.5-5.1) mmol/L Chloride 101 (98-107) mmol/L Carbon Dioxide 29.0 (21.0-32.0) mmol/L BUN 19 H (7-18) mg/dL Creatinine 1.37 H (0.51-1.17) mg/dL Est Cr Clr Drug Dosing TNP Estimated GFR (MDRD) 51 mL/min Glucose 214 H (74-106) mg/dL Calcium 8.2 L (8.5-10.1) mg/dL Departure - Departure Time of Disposition: 14:06 Disposition: [facility] Condition: Fair Clinical Impression: Hallucinations - Discharge Information *PRESCRIPTION DRUG MONITORING PROGRAM REVIEWED*: No Referrals: Connie Beck PA [Primary Care Provider] - Care Plan Goals: Patient will be sent back home to [facility] half-way with his current medications no changes I did speak to Dr. Tlelez his psychiatrist at the [facility] and agree - Problem List & Annotations (1) Visual hallucinations SNOMED Code(s): 99662953 Code(s): R44.1 - VISUAL HALLUCINATIONS Status: Acute Annotation/Comment: : [facility] Tellez feels that we should continue him on Abilify 5 mg for 4 or 5 days then see how he's doing and may be increased - Problem List Review Problem List Initiated/Reviewed/Updated: Yes - My Orders Last 24 Hours: My Active Orders 01/25/18 13:06 Head wo Cont [CT] Stat 01/25/18 13:08 UA W/MICROSCOPIC [URIN] Stat 01/26/18 05:11 CBC W/O DIFF,HEMOGRAM [HEME] AM - Assessment/Plan Last 24 Hours: My Active Orders 01/25/18 13:06 Head wo Cont [CT] Stat 01/25/18 13:08 UA W/MICROSCOPIC [URIN] Stat 01/26/18 05:11 CBC W/O DIFF,HEMOGRAM [HEME] AM Plan: [facility]
== END 2018-01-25 14:32 ==
LOC: LL.ED 12:44
DX: R44.1 Visual hallucinations (principal); I13.0 Hypertensive heart and chronic kidney disease with heart failure and stage 1 through stage 4 chronic kidney disease, or unspecified chronic kidney disease; E11.22 Type 2 diabetes mellitus with diabetic chronic kidney disease; N18.9 Chronic kidney disease, unspecified; I50.9 Heart failure, unspecified; E78.00 Pure hypercholesterolemia, unspecified; E11.21 Type 2 diabetes mellitus with diabetic nephropathy; E11.40 Type 2 diabetes mellitus with diabetic neuropathy, unspecified; F41.9 Anxiety disorder, unspecified; F32.9 Major depressive disorder, single episode, unspecified; G30.9 Alzheimer's disease, unspecified; M19.90 Unspecified osteoarthritis, unspecified site; I25.2 Old myocardial infarction; D64.9 Anemia, unspecified; Z79.899 Other long term (current) drug therapy; Z88.1 Allergy status to other antibiotic agents; Z88.5 Allergy status to narcotic agent; Z88.8 Allergy status to other drugs, medicaments and biological substances
CPT/HCPCS: 36415; 70450; 80048; 80305-QW; 81001; 99285

== ENCOUNTER 2018-11-30 13:55 | Emergency (ER) | payer OTHER ==
[2018-11-30] MEDS ORDERED: Famotidine 20 MG/2 ML SDV IVPUSH ONE (14:16)
[2018-11-30] MEDS ORDERED: Sodium Chloride 0.9% 10 ML Syringe FLUSH PRN (14:16)
--- NOTE | 2018-11-30 14:16 | EDM.PDOC ---
ED HPI GENERAL MEDICAL PROBLEM - General Chief Complaint: General Stated Complaint: Stomach pain Time Seen by Provider: 11/30/18 14:05 Source of Information: Reports: Patient, Group Home Records, Old Records ([facility] EMR. No paper hospital chart available.) History Limitations: Reports: Altered Mental Status (Psychiatric status) - History of Present Illness INITIAL COMMENTS - FREE TEXT/NARRATIVE: Patient was brought to the emergency room via transport vehicle from [facility] in [place] for evaluation of multiple nonspecific complaints , including intermittent abdominal pain, nonspecific chest discomfort, fatigue, etc. with symptoms present for over a year. He is saying extremely poor historian secondary to his psychiatric status. The transferring halfway nurse did feel that his symptoms were more emotional in nature. The patient denies any chest pressure, heart flutter, dizziness, orthostasis, orthopnea, diaphoresis, paresthesias, recent decreased exercise tolerance, or any other anginal-type symptoms. No recent history of abdominal pain, heartburn, nausea, diarrhea, melena, gross hematochezia, or any food intolerance, including fatty foods, etc.. No history of gross hematuria, colic, or other UTI symptoms. The patient also denies any recent fever, cough, wheezing, dyspnea, etc.. Note that the patient's Seroquel was apparently decreased to 25 mg by mouth [facility] [place]. He is not able to properly rate his multiple nonspecific complaints as above. Onset: Other (As above) Duration: Getting Worse, Intermittent Location: Reports: Chest, Abdomen, Generalized. Denies: Head, Face, Neck, Radiates to Quality: Reports: Ache, Same as Previous Episode Severity: Moderate Improves with: Reports: None Worsens with: Reports: None Context: Reports: Other (As above). Denies: Sick Contact, Trauma Associated Symptoms: Reports: Confusion (Secondary to psychiatric illness), Chest Pain. Denies: Cough, Diaphoresis, Fever/Chills, Headaches, Loss of Appetite, Malaise, Nausea/Vomiting, Seizure, Shortness of Breath, Syncope Treatments TEST BAKER: Reports: Other (see below) (None) Chest Pain Score (Numeric/FACES): 4 (Nonspecific) - Related Data Allergies Allergy/AdvReac Type Severity Reaction Status Date / Time amoxicillin Allergy Nausea Verified 06/05/18 00:45 cephalexin Allergy Nausea Verified 06/05/18 00:45 clavulanic acid Allergy Nausea Verified 06/05/18 00:45 [From Augmentin] codeine Allergy Nausea Verified 06/05/18 00:45 metoclopramide Allergy Nausea Verified 06/05/18 00:45 Home Meds: Home Meds Albuterol Sulfate [Proair Respiclick] 2 puff IH Q6HR PRN 11/17/17 [History] Alum Hydrox/Mag Hydrox/Simeth [Mag-Al Plus] 5 ml PO TID PRN 11/17/17 [History] Cholecalciferol (Vitamin D3) [Vitamin D3] 2,000 unit PO DAILY 11/17/17 [History] Clopidogrel Bisulfate [Clopidogrel] 75 mg PO DAILY 11/17/17 [History] Ward Tar [Therapeutic Shampoo] 1 applic TP DAILY 11/17/17 [History] DULoxetine [Cymbalta] 60 mg PO DAILY 11/17/17 [History] Fluticasone Furoate [Flonase Sensimist] 2 sprays INH DAILY 11/17/17 [History] Folic Acid 1 mg PO DAILY@1200 11/17/17 [History] Furosemide 80 mg PO DAILY 11/17/17 [History] Insulin Aspart [NovoLOG] 3 units SUBCUT TID 11/17/17 [History] Insulin Glargine,Hum.Rec.Anlog [Lantus Solostar] 12 unit SQ DAILY@199911/17/17 [History] Isosorbide Mononitrate [Isosorbide Mononitrate ER] 60 mg PO DAILY 11/17/17 [ History] Methyl Salicylate/Menthol [Muscle Rub] 1 applic TP BID PRN 11/17/17 [History] Metoprolol Tartrate 12.5 mg PO BID 11/17/17 [History] Nitroglycerin 0.4 mg SL ASDIRECTED PRN 11/17/17 [History] Non-Formulary Medication [NF Drug] 1 applic TD QID PRN 11/17/17 [History] Omeprazole 40 mg PO DAILY 11/17/17 [History] Pectin [Throat Drops] 6 mg PO Q2HR 11/17/17 [History] Potassium Chloride 10 meq PO DAILY@1200 11/17/17 [History] Pravastatin Sodium [Pravachol] 10 mg PO DAILY 11/17/17 [History] Pregabalin [Lyrica] 100 mg PO TID 11/17/17 [History] Riboflavin [Vitamin B-2] 100 mg PO DAILY 11/17/17 [History] Sennosides/Docusate Sodium [Sennosides-Docusate Sodium] 1 each PO BID 11/17/17 [ History] Triamcinolone Acetonide [Triamcinolone Acetonide 0.1% Crm] 1 applic TOP BID PRN 11/17/17 [History] amLODIPine [Norvasc] 5 mg PO DAILY 11/17/17 [History] diphenhydrAMINE HCl [Benadryl] 25 mg PO Q8HR PRN 11/17/17 [History] fentaNYL [Fentanyl] 12 mcg TD Q48H 11/17/17 [History] fentaNYL [Fentanyl] 25 mcg TD Q48H 11/17/17 [History] glipiZIDE [Glucotrol] 20 mg PO BID 11/17/17 [History] guaiFENesin/Dextromethorphan [Gs Tussin Dm Cough Syrup] 10 ml PO Q4HR PRN [History] hydrOXYzine pamoate [Hydroxyzine Pamoate] 25 mg PO TID 11/17/17 [History] oxyCODONE 5 mg PO QID PRN 11/17/17 [History] Albuterol Sulfate [Proair Respiclick] 90 mcg IH BID 01/25/18 [History] Bisacodyl [Dulcolax] 5 mg PO DAILY PRN 11/30/18 [History] Calcium Carbonate [Tums Extra Strength] 750 mg PO DAILY PRN 11/30/18 [History] Divalproex Sodium [Depakote Sprinkle] 125 mg PO DAILY 11/30/18 [History] Donepezil HCl [Aricept] 10 mg PO BID 11/30/18 [History] Nystatin [Nyamyc] 15 gm TP BID PRN 11/30/18 [History] Ondansetron [Zofran] 4 mg PO Q4H 11/30/18 [History] QUEtiapine [SEROquel] 25 mg PO BID 11/30/18 [History] QUEtiapine [SEROquel] 100 mg PO DAILY 11/30/18 [History] metFORMIN [Glucophage XR] 500 mg PO BIDMEALS 11/30/18 [History] oxyCODONE 5 mg PO DAILY 11/30/18 [History] Past Medical History HEENT History: Reports: Allergic Rhinitis, Cataract, Hard of Hearing, Impaired Vision, Other (See Below). Denies: Glaucoma, Macular Degeneration, Otitis Media , Retinal Detachment Other HEENT History: Presbycusis with bilateral hearing aid therapy. Patient wears glasses. Possible diabetic retinopathy with additional history of right sided ischemic optic neuropathy Cardiovascular History: Reports: Arrhythmia, CAD, Cardiomyopathy, Heart Failure , High Cholesterol, Hypertension, AR, PVD, Other (See Below). Denies: Afib, Aneurysm, Blood Clots/VTE/DVT, Bypass, Heart Murmur, Stents, Syncope Other Cardiovascular History: Complete bifascicular bundle-branch block with cardiomegaly Respiratory History: Reports: Bronchitis, Recurrent, COPD, Intubation, Previous , Sleep Apnea, Other (See Below). Denies: Asthma, Intubation, Difficult, PE, Pneumonia, Recurrent, Pneumothorax, TB Other Respiratory History: Old right sixth and seventh rib fractures by chest x- ray Gastrointestinal History: Reports: Chronic Constipation, Colon Polyp, GERD, Hiatal Hernia. Denies: Celiac Disease, Cholelithiasis, Diverticulosis, Fecal Incontinence, Gastritis, GI Bleed, Hemorrhoids, Hepatitis, Inflammatory Bowel Disease, Irritable Bowel Syndrome, Jaundice, Pancreatitis, PUD Genitourinary History: Reports: BPH, Chronic Renal Insuffiency, Diabetic Nephropathy, Other (See Below). Denies: Renal Calculus, Retention, Urinary, STD , Urinary Incontinence, UTI, Recurrent Other Genitourinary History: Stage III diabetic nephropathy Musculoskeletal History: Reports: Arthritis, Back Pain, Chronic, Fracture, Neck Pain, Chronic, Osteoarthritis, Osteoporosis, Other (See Below). Denies: Gout, RA, SLE Other Musculoskeletal History: Rib fractures as above. Periprosthetic left proximal humeral/shoulder fracture on 02/10/18 with no additional surgery required. Previous Left shoulder fracture with status total arthroplasty as below. Chronic pain syndrome with chronic narcotic use. [place]'s disease by bone scan. Neurological History: Reports: Brain Injury, Concussion, Head Trauma, Neuropathy , Diabetic, Neuropathy, Peripheral, TIA, Other (See Below). 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 Denies: Abuse, Victim of, ADD, ADHD, Psych Hospitalization(s), PTSD, Suicide Attempt, Suicidal Ideation Other Psychiatric History: Chronic narcotic use including oxycodone, fentanyl, lidocaine patches, etc. Endocrine/Metabolic History: Reports: Diabetes, Type II, IDDM, Obesity/BMI 30+, Osteopenia, Osteoporosis, Vitamin D Deficiency, Other (See Below). Denies: Diabetes, Type I, Diabetes Mellitus, Type 3c, Hypothyroidism Other Endocrine/Metabolic History: Hypokalemia, testosterone deficiency Hematologic History: Reports: Anemia, B12 Deficiency. Denies: Blood Transfusion (s) Immunologic History: Reports: None. Denies: AIDS, HIV, SLE Dermatologic History: Reports: Other (See Below) Other Dermatologic History: Recurrent tinea corporis - Past Surgical History Head Surgeries/Procedures: Reports: None HEENT Surgical History: Reports: Cataract Surgery, Oral Surgery, Other (See Below) Other HEENT Surgeries/Procedures: Multiple teeth extractions Cardiovascular Surgical History: Reports: Carotid Endarterectomy, Coronary Artery Bypass, Coronary Artery Stent GI Surgical History: Reports: Colonoscopy, Polypectomy Musculoskeletal Surgical History: Reports: Joint Replacement, Shoulder Surgery, Other (See Below) Other Musculoskeletal Surgeries/Procedures:: Left shoulder total arthroplasty. Social & Family History - Tobacco Use Smoking Status *Q: Never Smoker Tobacco Use Within Last Twelve Months: No Used Tobacco, but Quit: No Smoking Cessation Information Provided To Patient: No Second Hand Smoke Exposure: No Second Hand Smoke Education Provided: No - Caffeine Use Caffeine Use: Reports: None - Living Situation & Occupation Living situation: Reports: Extended Care Facility () Occupation: Retired ED ROS GENERAL - Review of Systems Review Of Systems: ROS reveals no pertinent complaints other than HPI. ED EXAM, GENERAL - Physical Exam Exam: See Below Exam Limited By: No Limitations General Appearance: Alert, WD/WN, No Apparent Distress Eye Exam: Bilateral Eye: Normal Inspection (No nystagmus) Ears: Normal External Exam, Hearing Loss (Mild bilateral presbycusis with bilateral hearing aides ). No: Hearing Grossly Normal Nose: Normal Inspection, Normal Mucosa, No Blood Throat/Mouth: Normal Lips, Normal Teeth (Multiple missing teeth), Normal Gums, Normal Oropharynx, Normal Voice, No Airway Compromise. No: Dysphagia, Perioral Cyanosis Head: Atraumatic, Normocephalic. No: Facial Swelling, Facial Tenderness, Sinus Tenderness Neck: Supple, Non-Tender, Full Range of Motion, Carotid Bruit (Mild bilateral carotid bruits). No: Lymphadenopathy (L), Lymphadenopathy (R), Thyromegaly Respiratory/Chest: No Respiratory Distress, No Accessory Muscle Use, Chest Non- Tender, Rales (Mild bilateral basilar rales). No: Rhonchi, Wheezing, Pleural Rub, Retractions Cardiovascular: Normal Peripheral Pulses, Regular Rate, Rhythm, No Edema, No Gallop, No JVD, No Murmur, No Rub. No: Gallop/S3, Gallop/S4, Friction Rub Peripheral Pulses: 2+: Radial (L), Radial (R), Dorsalis Pedis (L), Dorsalis Pedis (R) GI/Abdominal: Normal Bowel Sounds, Soft, Non-Tender, No Organomegaly, No Distention, No Abnormal Bruit, No Mass. No: Guarding (Male) Exam: Deferred Rectal (Males) Exam: Deferred Back Exam: Full Range of Motion, Other (Moderate scoliosis). No: CVA Tenderness (L), CVA Tenderness (R), Muscle Spasm Extremities: Normal Inspection, Normal Range of Motion, Non-Tender, No Pedal Edema, Normal Capillary Refill. No: Emma's Sign Neurological: Alert, Oriented, CN II-XII Intact, Normal Gait, Normal Reflexes ( Negative Babinski's), No Motor/Sensory Deficits, Confused (Tip of mild organic brain syndrome), Other (Mild rigidity and cogwheeling) Psychiatric: Anxious (Moderate), Depressed Mood (Mild with adequate eye contact) Skin Exam: Warm, Dry, Intact, Normal Color, No Rash. No: Diaphoretic, Wound/ Incision Lymphatic: No Adenopathy EKG INTERPRETATION EKG Date: 11/30/18 Time: 14:29 Rhythm: NSR Rate (Beats/Min): 88 [place]: Normal (Neutral cardiac axis) P-Wave: Enlarged (Moderate diffuse biphasic P waves with extreme poor R-wave progression in the anterior leads) QRS: LBBB (And complete bifascicular bundle branch block with left ventricular hypertrophy by voltage) ST-T: Other (Stable nonspecific ST changes and T-wave inversions in leads 1, 2, 3, aVF, and aVL since last EKG on 11/17/17.) QT: Normal [place]/PQ Interval: 0.16 seconds with extreme poor R-wave progression in the anterior leads Comparison: Change From Previous EKG (As above) EKG Interpretation Comments: 1. No acute ischemic changes were likely stable nonspecific ST changes. 2. Complete bifascicular bundle-branch block 3. Left Ventricular hypertrophy by voltage 4. Left Atrial enlargement Course - Vital Signs Last Recorded V/S: Last Vital Signs Temp 37.3 C 11/30/18 14:02 Pulse 71 11/30/18 17:40 Resp 15 11/30/18 17:40 BP 128/80 11/30/18 17:40 Pulse Ox 96 11/30/18 17:40 Vital Signs - 24 hr 11/30/18 11/30/18 11/30/18 14:02 14:16 15:15 Temperature [ 37.3 C Oral] Pulse, 85 87 83 Peripheral [ Left Pulse Oximetry] Respiratory 20 20 14 Rate Blood Pressure 126/70 110/58 L 103/64 [Left Upper Arm ] O2 Sat by Pulse 96 95 91 L Oximetry 11/30/18 11/30/18 11/30/18 15:30 15:45 16:00 Temperature [ Oral] Pulse, 82 90 77 Peripheral [ Left Pulse Oximetry] Respiratory 15 17 14 Rate Blood Pressure 121/58 L 133/51 L 113/59 L [Left Upper Arm ] O2 Sat by Pulse 93 L 93 L 93 L Oximetry 11/30/18 11/30/18 11/30/18 16:15 16:30 16:45 Temperature [ Oral] Pulse, 77 76 78 Peripheral [ Left Pulse Oximetry] Respiratory 14 15 13 Rate Blood Pressure 118/48 L 97/61 110/60 [Left Upper Arm ] O2 Sat by Pulse 93 L 93 L 94 L Oximetry 11/30/18 11/30/18 11/30/18 17:00 17:15 17:30 Temperature [ Oral] Pulse, 74 72 74 Peripheral [ Left Pulse Oximetry] Respiratory 16 16 16 Rate Blood Pressure 119/63 118/66 118/65 [Left Upper Arm ] O2 Sat by Pulse 95 93 L 95 Oximetry 11/30/18 17:40 Temperature [ Oral] Pulse, 71 Peripheral [ Left Pulse Oximetry] Respiratory 15 Rate Blood Pressure 128/80 [Left Upper Arm ] O2 Sat by Pulse 96 Oximetry - Orders/Labs/Meds Orders: Active Orders 24 hr Category Date Time Status Cardiac Monitoring [RC] . DIRECTED Care 11/30/18 14:16 Active EKG Documentation Completion [RC] ASDIRECTED Care 11/30/18 14:16 Active Oxygen Therapy, ED [RC] PRN Care 11/30/18 14:16 Active Peripheral IV Care [RC] . DIRECTED Care 11/30/18 14:16 Active Pulse Oximetry [RC] CONTINUOUS Care 11/30/18 14:16 Active Up With Assistance [RC] PFP Care 11/30/18 14:16 Active Vital Signs [RC] Q30M Care 11/30/18 17:42 Active Nothing per Oral Now Diet [DIET] Diet 11/30/18 Breakfast Active Chest 1V Frontal [CR] Stat Exams 11/30/18 14:16 Taken Sodium Chloride 0.9% [Saline Flush] Med 11/30/18 14:16 Active 10 ml FLUSH ASDIRECTED PRN Obtain Past Medical Record [OM.PC] Urgent Oth 11/30/18 14:16 Active Peripheral IV Insertion Adult [OM.PC] Stat Oth 11/30/18 14:16 Ordered Resuscitation Status Stat Resus Stat 11/30/18 14:16 Ordered Medication Orders Sodium Chloride (Saline Flush) 10 ml FLUSH ASDIRECTED PRN PRN Reason: Keep Vein Open Labs: Laboratory Tests 11/30/18 11/30/18 11/30/18 Range/Units 14:40 14:40 14:40 WBC 7.5 (4.0-10.2) K/uL RBC 5.17 (4.33-5.41) M/uL Hgb 13.9 D (13.1-16.8) g/dL Hct 42.1 (39.0-49.0) % MCV 81.4 L (84.0-98.0) fL MCH 26.9 L (28.2-33.3) pg MCHC 33.0 (31.7-36.0) g/dL RDW 20.4 H (11.2-14.1) % Plt Count 179 (150-350) K/uL Neut % (Auto) 66.6 (45.0-80.0) % Lymph % (Auto) 19.1 (10.0-50.0) % [place] % (Auto) 9.2 (2.0-14.0) % Eos % (Auto) 4.8 (0.0-5.0) % Baso % (Auto) 0.3 (0.0-2.0) % Neut # (Auto) 4.98 (1.40-7.00) K/uL Lymph # (Auto) 1.43 (0.50-3.50) K/uL [place] # (Auto) 0.69 (0.00-1.00) K/uL Eos # (Auto) 0.36 (0.00-0.50) K/uL Baso # (Auto) 0.02 (0.00-0.20) K/uL PT 10.6 (9.5-12.0) SEC INR 1.0 APTT 26.4 (21.0-31.3) SEC D-Dimer, Quantitative 539 H (0-400) ng/mL Sodium (136-145) mmol/L Potassium (3.5-5.1) mmol/L Chloride (98-107) mmol/L Carbon Dioxide (21.0-32.0) mmol/L BUN (7-18) mg/dL Creatinine (0.51-1.17) mg/dL Est Cr Clr Drug Dosing mL/min Estimated GFR (MDRD) mL/min Glucose (74-106) mg/dL POC Glucose (65-110) mg/dl Lactic Acid (0.4-2.0) mmol/L Uric Acid (2.6-7.2) mg/dL Calcium (8.5-10.1) mg/dL Magnesium (1.8-2.4) mg/dL Total Bilirubin (0.2-1.0) mg/dL AST (15-37) U/L ALT (12-78) U/L Alkaline Phosphatase (46-116) IU/L Creatine Kinase (26-308) U/L Creatine Kinase Index (0.0-2.5) % CK-MB (CK-2) (0.00-3.60) ng/mL Troponin I (0.000-0.056) ng/mL NT-Pro-B Natriuret Pep (0-125) pg/mL Total Protein (6.4-8.2) g/dL Albumin (3.4-5.0) g/dL TSH, Ultra Sensitive (0.358-3.740) mIU/mL 11/30/18 11/30/18 11/30/18 Range/Units 14:40 14:40 18:53 WBC (4.0-10.2) K/uL RBC (4.33-5.41) M/uL Hgb (13.1-16.8) g/dL Hct (39.0-49.0) % MCV (84.0-98.0) fL MCH (28.2-33.3) pg MCHC (31.7-36.0) g/dL RDW (11.2-14.1) % Plt Count (150-350) K/uL Neut % (Auto) (45.0-80.0) % Lymph % (Auto) (10.0-50.0) % [place] % (Auto) (2.0-14.0) % Eos % (Auto) (0.0-5.0) % Baso % (Auto) (0.0-2.0) % Neut # (Auto) (1.40-7.00) K/uL Lymph # (Auto) (0.50-3.50) K/uL [place] # (Auto) (0.00-1.00) K/uL Eos # (Auto) (0.00-0.50) K/uL Baso # (Auto) (0.00-0.20) K/uL PT (9.5-12.0) SEC INR APTT (21.0-31.3) SEC D-Dimer, Quantitative (0-400) ng/mL Sodium 141 (136-145) mmol/L Potassium 4.7 (3.5-5.1) mmol/L Chloride 104 (98-107) mmol/L Carbon Dioxide 27.9 (21.0-32.0) mmol/L BUN 27 H (7-18) mg/dL Creatinine 1.68 H (0.51-1.17) mg/dL Est Cr Clr Drug Dosing 36.76 mL/min Estimated GFR (MDRD) 40 mL/min Glucose 162 H (74-106) mg/dL POC Glucose 79 (65-110) mg/dl Lactic Acid 2.3 H (0.4-2.0) mmol/L Uric Acid 5.8 (2.6-7.2) mg/dL Calcium 8.8 (8.5-10.1) mg/dL Magnesium 1.8 (1.8-2.4) mg/dL Total Bilirubin 0.3 (0.2-1.0) mg/dL AST 24 (15-37) U/L ALT 28 (12-78) U/L Alkaline Phosphatase 83 (46-116) IU/L Creatine Kinase 123 (26-308) U/L Creatine Kinase Index 2.8 H (0.0-2.5) % CK-MB (CK-2) 3.50 (0.00-3.60) ng/mL Troponin I 0.001 (0.000-0.056) ng/mL NT-Pro-B Natriuret Pep 301 H (0-125) pg/mL Total Protein 7.5 (6.4-8.2) g/dL Albumin 3.4 (3.4-5.0) g/dL TSH, Ultra Sensitive 1.783 (0.358-3.740) mIU/mL Meds: Medications Generic Name Dose Route Start Last Admin Trade Name Freq PRN Reason Stop Dose Admin Sodium Chloride 10 ml 11/30/18 14:16 Saline Flush FLUSH ASDIRECTED PRN Keep Vein Open Discontinued Medications Generic Name Dose Route Start Last Admin Trade Name Freq PRN Reason Stop Dose Admin Aspirin 324 mg 11/30/18 16:18 11/30/18 17:45 Aspirin CHEW 11/30/18 16:19 324 mg ONETIME ONE Administration Famotidine 40 mg 11/30/18 14:16 11/30/18 14:58 Pepcid IVPUSH 11/30/18 14:17 40 mg ONETIME ONE Administration Ticagrelor 180 mg 11/30/18 16:18 11/30/18 17:44 Brilinta PO 11/30/18 16:19 180 mg ONETIME ONE Administration - Radiology Interpretation Free Text/Narrative:: radiotelegrapher shows normal sinus rhythm with heart rate in the 70s to 80s with no ectopy or arrhythmia. Chest x-ray, portable, shows stable left shoulder total arthroplasty with moderate COPD and pulmonary fibrotic changes, including moderate CHF and cardiomegaly with moderate prominence of the proximal aortic arch and mild aortic valve calcification. Pulmonary infiltrates difficult to assess secondary to his CHF with no pneumothorax, etc. Departure - Departure Time of Disposition: 19:15 Disposition: DC/Tfer to Acute Hospital 02 Condition: Fair Clinical Impression: IDDM (insulin dependent diabetes mellitus), Mixed anxiety depressive disorder, Peptic reflux disease, Organic brain syndrome, Elevated d-dimer, Renal insufficiency, Lactic acid increased COPD (chronic obstructive pulmonary disease) Qualifiers: COPD type: emphysema Emphysema type: panlobular Qualified Code(s): J43.1 - Panlobular emphysema CHF (congestive heart failure) Qualifiers: Heart failure type: unspecified Heart failure chronicity: chronic Qualified Code(s): I50.9 - Heart failure, unspecified Hypertension Qualifiers: Hypertension type: essential hypertension Qualified Code(s): I10 - Essential ( primary) hypertension Osteoarthritis Qualifiers: Osteoarthritis location: multiple joints Osteoarthritis type: primary Qualified Code(s): M15.0 - Primary generalized (osteo)arthritis Coronary artery disease Qualifiers: Coronary Disease-Associated Artery/Lesion type: bypass graft [place] vs. transplanted heart: [place] heart Associated angina: without angina Qualified Code(s): I25.810 - Atherosclerosis of coronary artery bypass graft(s) without angina pectoris - Discharge Information *PRESCRIPTION DRUG MONITORING PROGRAM REVIEWED*: Not Applicable *COPY OF PRESCRIPTION DRUG MONITORING REPORT IN PATIENT BJORN: Not Applicable Referrals: Connie Beck PA [Primary Care Provider] - Forms: ED Department Discharge, Interfacility Transfer EMTALA - Problem List & Annotations (1) CHF (congestive heart failure) SNOMED Code(s): 92432585 Code(s): I50.9 - HEART FAILURE, UNSPECIFIED Status: Chronic Priority: Medium Current Visit: Yes Annotation/Comment:: No true chest pain or anginal type symptoms, although chest pain protocol was initiated upon patient' s arrival to this facility. ASA and Brilinta were given shortly after telephone consultation as below. Telephone consultation at 16:00 hours with [facility] and then at 16:[address] Mccormick, hospitalist, who does accept the patient for direct admission, with no further treatment recommendations given. He did not wish subcutaneous Lovenox to be given at this time as below, although I did decide to give the patient ASA and aspirin as per chest pain protocol. Note previous initial telephone consultation at 15:45 hours with valentina Estrada at the [facility] in [place], with no beds available in their facility. We did receive acceptance for admission to another facility with transfer of the patient via ambulance with distribution transformer assembler accompaniment. Note some delay in hospital transfer without sequelae secondary to lack of ambulance availability. Borderline CHF by chest x-ray and mild BNP elevation today. Mild cardiac index elevation however note normal CK-MB and CK with stable chronic EKG changes as above. Qualifiers: Heart failure type: unspecified Heart failure chronicity: chronic Qualified Code(s): I50.9 - Heart failure, unspecified (2) Elevated d-dimer SNOMED Code(s): 704970758 Code(s): R79.89 - OTHER SPECIFIED ABNORMAL FINDINGS OF BLOOD CHEMISTRY Status: Acute Priority: High Current Visit: Yes Onset Date: 11/30/18 Annotation/Comment:: Newly diagnosed d-dimer elevation with no clinical evidence of PE or DVT. Secondary to patient's renal insufficiency a CT of the chest could not be conducted in our facility. Consider VQ scan, venous Doppler studies of the lower extremities, etc. by accepting providers. Accepting physician did not wish initiation of subcutaneous Lovenox therapy prior to transfer. (3) Lactic acid increased SNOMED Code(s): 78683340 Code(s): E87.2 - ACIDOSIS Status: Acute Priority: High Current Visit: Yes Onset Date: 11/30/18 Annotation/Comment:: Patient is afebrile with no leukocytosis or evidence of recent infection, clinical evidence of sepsis, etc. Repeat lactic acid level should be conducted upon arrival of patient to the accepting facility. (4) COPD (chronic obstructive pulmonary disease) SNOMED Code(s): 10016513 Code(s): J44.9 - CHRONIC OBSTRUCTIVE PULMONARY DISEASE, UNSPECIFIED Status : Chronic Priority: Medium Current Visit: Yes Annotation/Comment:: No true recent fever or bronchitic type symptoms. Note additional history of sleep apnea. Qualifiers: COPD type: emphysema Emphysema type: panlobular Qualified Code(s): J43.1 - Panlobular emphysema (5) Coronary artery disease SNOMED Code(s): 43110810 Code(s): I25.10 - ATHSCL HEART DISEASE OF [place] CORONARY ARTERY W/O ANG PCTRS Status: Chronic Priority: Medium Current Visit: Yes Annotation/ Comment:: As above. Cardiology consultation depending on his clinical course, including echocardiogram, etc. Status post CABG and previous PTCA/stent. Qualifiers: Coronary Disease-Associated Artery/Lesion type: bypass graft [place] vs. transplanted heart: [place] heart Associated angina: without angina Qualified Code(s): I25.810 - Atherosclerosis of coronary artery bypass graft(s) without angina pectoris (6) Hypertension SNOMED Code(s): 35236156 Code(s): I10 - ESSENTIAL (PRIMARY) HYPERTENSION Status: Chronic Priority : Medium Current Visit: Yes Annotation/Comment:: Stable in the emergency room Qualifiers: Hypertension type: essential hypertension Qualified Code(s): I10 - Essential (primary) hypertension (7) IDDM (insulin dependent diabetes mellitus) SNOMED Code(s): 19981892 Code(s): E11.9 - TYPE 2 DIABETES MELLITUS WITHOUT COMPLICATIONS; 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 Continue to observe closely by regular provider (8) Mixed anxiety depressive disorder SNOMED Code(s): 610655847 Code(s): F41.8 - OTHER SPECIFIED ANXIETY DISORDERS Status: Chronic Priority: Medium Current Visit: Yes Annotation/Comment:: Continue to observe closely by accepting provider with psychiatry consultation depending on his clinical course. Note recent decrease of his Seroquel therapy. (9) Organic brain syndrome SNOMED Code(s): 015873668 Code(s): F09 - UNSP MENTAL DISORDER DUE TO KNOWN PHYSIOLOGICAL CONDITION Status: Chronic Priority: Medium Current Visit: Yes Annotation/Comment:: Stable by history with chronic narcotic use which could affect mental status. Continue to observe closely by regular provider (10) Osteoarthritis SNOMED Code(s): 793928255 Code(s): M19.90 - UNSPECIFIED OSTEOARTHRITIS, UNSPECIFIED SITE Status: Chronic Priority: Medium Current Visit: Yes Annotation/Comment:: Nonspecific occasional generalized arthralgias with known history of chronic pain syndrome, however otherwise stable by history Qualifiers: Osteoarthritis location: multiple joints Osteoarthritis type: primary Qualified Code(s): M15.0 - Primary generalized (osteo)arthritis (11) Peptic reflux disease SNOMED Code(s): 460795490 Code(s): K21.9 - GASTRO-ESOPHAGEAL REFLUX DISEASE WITHOUT ESOPHAGITIS Status: Chronic Priority: Medium Current Visit: Yes Annotation/Comment:: High-dose IV Pepcid given in the emergency room. Currently under therapy. (12) Renal insufficiency SNOMED Code(s): 506262832, 555090092 Code(s): N28.9 - DISORDER OF KIDNEY AND URETER, UNSPECIFIED Status: Chronic Priority: Medium Current Visit: Yes Annotation/Comment:: Stable stage III diabetic nephropathy and stable chronic renal insufficiency by today' s blood work - Problem List Review Problem List Initiated/Reviewed/Updated: Yes - My Orders Last 24 Hours: My Active Orders 11/30/18 14:16 Cardiac Monitoring [RC] . DIRECTED EKG Documentation Completion [RC] ASDIRECTED Oxygen Therapy, ED [RC] PRN Peripheral IV Care [RC] . DIRECTED Pulse Oximetry [RC] CONTINUOUS Up With Assistance [RC] PFP Chest 1V Frontal [CR] Stat Sodium Chloride 0.9% [Saline Flush] 10 ml FLUSH ASDIRECTED PRN Obtain Past Medical Record [OM.PC] Urgent Peripheral IV Insertion Adult [OM.PC] Stat Resuscitation Status Stat 11/30/18 17:42 Vital Signs [RC] Q30M 11/30/18 Breakfast Nothing per Oral Now Diet [DIET] - Assessment/Plan Last 24 Hours: My Active Orders 11/30/18 14:16 Cardiac Monitoring [RC] . DIRECTED EKG Documentation Completion [RC] ASDIRECTED Oxygen Therapy, ED [RC] PRN Peripheral IV Care [RC] . DIRECTED Pulse Oximetry [RC] CONTINUOUS Up With Assistance [RC] PFP Chest 1V Frontal [CR] Stat Sodium Chloride 0.9% [Saline Flush] 10 ml FLUSH ASDIRECTED PRN Obtain Past Medical Record [OM.PC] Urgent Peripheral IV Insertion Adult [OM.PC] Stat Resuscitation Status Stat 11/30/18 17:42 Vital Signs [RC] Q30M 11/30/18 Breakfast Nothing per Oral Now Diet [DIET] Assessment:: As above Plan: As above. Extensive precautions were given to the patient, who is in agreement with the treatment plan. Ambulance transfer with distribution transformer assembler accompaniment.
[2018-11-30] MEDS ORDERED: Aspirin 81 MG Tab.Chew CHEW ONE (16:18)
[2018-11-30] MEDS ORDERED: Ticagrelor 90 MG Tab PO ONE (16:18)
== END 2018-11-30 19:15 ==
LOC: LL.ED 13:55
DX: I13.0 Hypertensive heart and chronic kidney disease with heart failure and stage 1 through stage 4 chronic kidney disease, or unspecified chronic kidney disease (principal); I50.9 Heart failure, unspecified; N18.9 Chronic kidney disease, unspecified; F41.8 Other specified anxiety disorders; J43.1 Panlobular emphysema; R79.1 Abnormal coagulation profile; F09 Unspecified mental disorder due to known physiological condition; K21.9 Gastro-esophageal reflux disease without esophagitis; I25.810 Atherosclerosis of coronary artery bypass graft(s) without angina pectoris; E87.2 Acidosis; E11.22 Type 2 diabetes mellitus with diabetic chronic kidney disease; I25.2 Old myocardial infarction; Z79.84 Long term (current) use of oral hypoglycemic drugs; Z79.899 Other long term (current) drug therapy
CPT/HCPCS: 36415; 71045; 80053; 82550; 82553; 82962; 83605; 83735; 83880; 84443; 84484; 84550; 85025; 85379; 85610; 85730; 93005; 96374; 99285-25; A9270-GY; J3490

== ENCOUNTER 2019-02-01 13:45 | Emergency (ER) | payer OTHER ==
--- NOTE | 2019-02-01 13:56 | EDM.PDOC ---
ED HPI GENERAL MEDICAL PROBLEM - General Chief Complaint: Abdominal Pain Stated Complaint: Abd pain, weakness Time Seen by Provider: 02/01/19 13:45 Source of Information: Reports: Patient History Limitations: Reports: Altered Mental Status - History of Present Illness INITIAL COMMENTS - FREE TEXT/NARRATIVE: Patient is a 73-year-old gentleman from the [facility] who comes in with chief complaint of abdominal pain right upper quadrant denies fever Onset: Gradual Duration: Chronic Location: Reports: Abdomen Quality: Reports: Pressure Improves with: Reports: None Worsens with: Reports: Movement (Walking increase activity) Associated Symptoms: Reports: No Other Symptoms Abdomen Pain Score (Numeric/FACES): 4 - Related Data Allergies Allergy/AdvReac Type Severity Reaction Status Date / Time amoxicillin Allergy Nausea Verified 02/01/19 14:01 cephalexin Allergy Nausea Verified 02/01/19 14:01 clavulanic acid Allergy Nausea Verified 02/01/19 14:01 [From Augmentin] codeine Allergy Nausea Verified 02/01/19 14:01 metoclopramide Allergy Nausea Verified 02/01/19 14:01 Home Meds: Home Meds Albuterol Sulfate [Proair Respiclick] 2 puff IH Q6HR PRN 11/17/17 [History] Alum Hydrox/Mag Hydrox/Simeth [Mag-Al Plus] 5 ml PO TID PRN 11/17/17 [History] Cholecalciferol (Vitamin D3) [Vitamin D3] 2,000 unit PO DAILY 11/17/17 [History] Clopidogrel Bisulfate [Clopidogrel] 75 mg PO DAILY 11/17/17 [History] [place] Tar [Therapeutic Shampoo] 1 applic TP DAILY 11/17/17 [History] DULoxetine [Cymbalta] 60 mg PO DAILY 11/17/17 [History] Fluticasone Furoate [Flonase Sensimist] 2 sprays INH DAILY 11/17/17 [History] Folic Acid 1 mg PO DAILY@1200 11/17/17 [History] Furosemide 80 mg PO DAILY 11/17/17 [History] Insulin Aspart [NovoLOG] 3 units SUBCUT TID 11/17/17 [History] Insulin Glargine,Hum.Rec.Anlog [Lantus Solostar] 12 unit SQ DAILY@199911/17/17 [History] Isosorbide Mononitrate [Isosorbide Mononitrate ER] 60 mg PO DAILY 11/17/17 [ History] Methyl Salicylate/Menthol [Muscle Rub] 1 applic TP BID PRN 11/17/17 [History] Metoprolol Tartrate 12.5 mg PO BID 11/17/17 [History] Nitroglycerin 0.4 mg SL ASDIRECTED PRN 11/17/17 [History] Non-Formulary Medication [NF Drug] 1 applic TD QID PRN 11/17/17 [History] Omeprazole 40 mg PO DAILY 11/17/17 [History] Pectin [Throat Drops] 6 mg PO Q2HR 11/17/17 [History] Potassium Chloride 10 meq PO DAILY@1200 11/17/17 [History] Pravastatin Sodium [Pravachol] 10 mg PO DAILY 11/17/17 [History] Pregabalin [Lyrica] 100 mg PO TID 11/17/17 [History] Riboflavin [Vitamin B-2] 100 mg PO DAILY 11/17/17 [History] Sennosides/Docusate Sodium [Sennosides-Docusate Sodium] 1 each PO BID 11/17/17 [ History] Triamcinolone Acetonide [Triamcinolone Acetonide 0.1% Crm] 1 applic TOP BID PRN 11/17/17 [History] amLODIPine [Norvasc] 5 mg PO DAILY 11/17/17 [History] diphenhydrAMINE HCl [Benadryl] 25 mg PO Q8HR PRN 11/17/17 [History] fentaNYL [Fentanyl] 12 mcg TD Q48H 11/17/17 [History] fentaNYL [Fentanyl] 25 mcg TD Q48H 11/17/17 [History] glipiZIDE [Glucotrol] 20 mg PO BID 11/17/17 [History] guaiFENesin/Dextromethorphan [Gs Tussin Dm Cough Syrup] 10 ml PO Q4HR PRN [History] hydrOXYzine pamoate [Hydroxyzine Pamoate] 25 mg PO TID 11/17/17 [History] oxyCODONE 5 mg PO QID PRN 11/17/17 [History] Albuterol Sulfate [Proair Respiclick] 90 mcg IH BID 01/25/18 [History] Bisacodyl [Dulcolax] 5 mg PO DAILY PRN 11/30/18 [History] Calcium Carbonate [Tums Extra Strength] 750 mg PO DAILY PRN 11/30/18 [History] Divalproex Sodium [Depakote Sprinkle] 125 mg PO DAILY 11/30/18 [History] Donepezil HCl [Aricept] 10 mg PO BID 11/30/18 [History] Nystatin [Nyamyc] 15 gm TP BID PRN 11/30/18 [History] Ondansetron [Zofran] 4 mg PO Q4H 11/30/18 [History] QUEtiapine [SEROquel] 25 mg PO BID 11/30/18 [History] QUEtiapine [SEROquel] 100 mg PO DAILY 11/30/18 [History] metFORMIN [Glucophage XR] 500 mg PO BIDMEALS 11/30/18 [History] oxyCODONE 5 mg PO DAILY 11/30/18 [History] Past Medical History HEENT History: Reports: Allergic Rhinitis, Cataract, Hard of Hearing, Impaired Vision, Other (See Below). Denies: Glaucoma, Macular Degeneration, Otitis Media , Retinal Detachment Other HEENT History: Presbycusis with bilateral hearing aid therapy. Patient wears glasses. Possible diabetic retinopathy with additional history of right sided ischemic optic neuropathy Cardiovascular History: Reports: Arrhythmia, CAD, Cardiomyopathy, Heart Failure , High Cholesterol, Hypertension, [place], PVD, Other (See Below). Denies: Afib, Aneurysm, Blood Clots/VTE/DVT, Bypass, Heart Murmur, Stents, Syncope Other Cardiovascular History: Complete bifascicular bundle-branch block with cardiomegaly Respiratory History: Reports: Bronchitis, Recurrent, COPD, Intubation, Previous , Sleep Apnea, Other (See Below). Denies: Asthma, Intubation, Difficult, PE, Pneumonia, Recurrent, Pneumothorax, TB Other Respiratory History: Old right sixth and seventh rib fractures by chest x- ray Gastrointestinal History: Reports: Chronic Constipation, Colon Polyp, GERD, Hiatal Hernia. Denies: Celiac Disease, Cholelithiasis, Diverticulosis, Fecal Incontinence, Gastritis, GI Bleed, Hemorrhoids, Hepatitis, Inflammatory Bowel Disease, Irritable Bowel Syndrome, Jaundice, Pancreatitis, PUD Genitourinary History: Reports: BPH, Chronic Renal Insuffiency, Diabetic Nephropathy, Other (See Below). Denies: Renal Calculus, Retention, Urinary, STD , Urinary Incontinence, UTI, Recurrent Other Genitourinary History: Stage III diabetic nephropathy Musculoskeletal History: Reports: Arthritis, Back Pain, Chronic, Fracture, Neck Pain, Chronic, Osteoarthritis, Osteoporosis, Other (See Below). Denies: Gout, RA, SLE Other Musculoskeletal History: Rib fractures as above. Periprosthetic left proximal humeral/shoulder fracture on 02/10/18 with no additional surgery required. Previous Left shoulder fracture with status total arthroplasty as below. Chronic pain syndrome with chronic narcotic use. 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 Neurological History: Reports: Brain Injury, Concussion, Head Trauma, Neuropathy , Diabetic, Neuropathy, Peripheral, TIA, Other (See Below). 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 Denies: Abuse, Victim of, ADD, ADHD, Psych Hospitalization(s), PTSD, Suicide Attempt, Suicidal Ideation Other Psychiatric History: Chronic narcotic use including oxycodone, fentanyl, lidocaine patches, etc. Endocrine/Metabolic History: Reports: Diabetes, Type II, IDDM, Obesity/BMI 30+, Osteopenia, Osteoporosis, Vitamin D Deficiency, Other (See Below). Denies: Diabetes, Type I, Diabetes Mellitus, Type 3c, Hypothyroidism Other Endocrine/Metabolic History: Hypokalemia, testosterone deficiency Hematologic History: Reports: Anemia, B12 Deficiency. Denies: Blood Transfusion (s) Immunologic History: Reports: None. Denies: AIDS, HIV, SLE Dermatologic History: Reports: Other (See Below) Other Dermatologic History: Recurrent tinea corporis - Past Surgical History Head Surgeries/Procedures: Reports: None HEENT Surgical History: Reports: Cataract Surgery, Oral Surgery, Other (See Below) Other HEENT Surgeries/Procedures: Multiple teeth extractions Cardiovascular Surgical History: Reports: Carotid Endarterectomy, Coronary Artery Bypass, Coronary Artery Stent GI Surgical History: Reports: Colonoscopy, Polypectomy Musculoskeletal Surgical History: Reports: Joint Replacement, Shoulder Surgery, Other (See Below) Other Musculoskeletal Surgeries/Procedures:: Left shoulder total arthroplasty. Social & Family History - Caffeine Use Caffeine Use: Reports: None - Living Situation & Occupation Living situation: Reports: Extended Care Facility ([facility] in [place]) Occupation: Retired ED ROS GENERAL - Review of Systems Review Of Systems: See Below Constitutional: Reports: No Symptoms HEENT: Reports: Rhinitis Respiratory: Reports: Shortness of Breath Cardiovascular: Reports: No Symptoms Endocrine: Reports: No Symptoms GI/Abdominal: Reports: Abdominal Pain (Right upper quadrant) : Reports: No Symptoms Musculoskeletal: Reports: Leg Pain, Joint Pain (Bilateral lower extremity pain with flexion and extension) Skin: Reports: No Symptoms ED EXAM, GI/ABD - Physical Exam Exam: See Below Exam Limited By: Altered Mental Status General Appearance: Alert, WD/WN, No Apparent Distress Eyes: Bilateral: Normal Appearance, EOMI Ears: Normal External Exam, Normal Canal, Hearing Grossly Normal, Normal TMs Nose: Normal Inspection, Normal Mucosa, No Blood, Nasal Drainage, Clear Rhinorrhea Throat/Mouth: Normal Inspection, Normal Lips, Normal Teeth, Normal Gums, Normal Oropharynx, Normal Voice, No Airway Compromise Head: Atraumatic, Normocephalic Neck: Normal Inspection, Supple, Non-Tender, Full Range of Motion Respiratory/Chest: Decreased Breath Sounds GI/Abdominal Exam: Normal Bowel Sounds, Soft, No Organomegaly, No Abnormal Bruit , No Mass, Pelvis Stable, Distended, Other (Right upper quadrant tenderness) (Male) Exam: Deferred Rectal (Males) Exam: Deferred Back Exam: Decreased Range of Motion, Other (Bilateral lower extremity pain with range of motion) Extremities: Limited Range of Motion Neurological: Alert, Oriented, CN II-XII Intact, Normal Cognition, Normal Gait, Normal Reflexes, No Motor/Sensory Deficits Psychiatric: Anxious Skin Exam: Warm, Dry, Intact, Normal Color, No Rash Lymphatic: No Adenopathy Course - Vital Signs Last Recorded V/S: Last Vital Signs Temp 98.2 F 02/01/19 13:45 Pulse 72 02/01/19 13:45 Resp 15 02/01/19 13:45 BP 119/50 L 02/01/19 13:45 Pulse Ox 92 L 02/01/19 13:45 - Orders/Labs/Meds Orders: Active Orders 24 hr Category Date Time Status Abdomen Pelvis w Cont [CT] Stat Exams 02/01/19 14:43 Ordered Labs: Laboratory Tests 02/01/19 02/01/19 02/01/19 Range/Units 14:45 14:55 14:55 WBC 5.4 (4.0-10.2) K/uL RBC 4.00 L (4.33-5.41) M/uL Hgb 11.8 L (13.1-16.8) g/dL Hct 35.2 L (39.0-49.0) % MCV 88.0 (84.0-98.0) fL MCH 29.5 (28.2-33.3) pg MCHC 33.5 (31.7-36.0) g/dL RDW 14.9 H (11.2-14.1) % Plt Count 181 (150-350) K/uL Neut % (Auto) 54.3 (45.0-80.0) % Lymph % (Auto) 23.3 (10.0-50.0) % [place] % (Auto) 15.0 H (2.0-14.0) % Eos % (Auto) 7.0 H (0.0-5.0) % Baso % (Auto) 0.4 (0.0-2.0) % Neut # (Auto) 2.94 (1.40-7.00) K/uL Lymph # (Auto) 1.26 (0.50-3.50) K/uL [place] # (Auto) 0.81 (0.00-1.00) K/uL Eos # (Auto) 0.38 (0.00-0.50) K/uL Baso # (Auto) 0.02 (0.00-0.20) K/uL Sodium 140 (136-145) mmol/L Potassium 4.7 (3.5-5.1) mmol/L Chloride 102 (98-107) mmol/L Carbon Dioxide 34.5 H (21.0-32.0) mmol/L BUN 22 H (7-18) mg/dL Creatinine 1.53 H (0.51-1.17) mg/dL Est Cr Clr Drug Dosing TNP Estimated GFR (MDRD) 45 mL/min Glucose 193 H (74-106) mg/dL Calcium 8.4 L (8.5-10.1) mg/dL Total Bilirubin 0.2 (0.2-1.0) mg/dL AST 24 (15-37) U/L ALT 26 (12-78) U/L Alkaline Phosphatase 74 (46-116) IU/L Total Protein 6.9 (6.4-8.2) g/dL Albumin 3.2 L (3.4-5.0) g/dL Specimen Type Urinvoid Urine Color Yellow Urine Appearance Clear Urine pH 5.0 (5.0-9.0) Ur Specific [place] 1.015 (1.005-1.030) Urine Protein Negative (NEGATIVE) mg/dL Urine Glucose (UA) Negative (NEGATIVE) mg/dL Urine Ketones Negative (NEGATIVE) mg/dL Urine Occult Blood Negative (NEGATIVE) Urine Nitrite Negative (NEGATIVE) Urine Bilirubin Negative (NEGATIVE) Urine Urobilinogen 0.2 (0.2-1.0) E.U./dL Ur Leukocyte Esterase Negative (NEGATIVE) Urine RBC 0-5 /HPF Urine WBC Not seen /HPF Ur Epithelial Cells Rare /LPF Urine Bacteria Not seen (NONE TO FEW) /HPF Meds: Medications Discontinued Medications Generic Name Dose Route Start Last Admin Trade Name Freq PRN Reason Stop Dose Admin Iopamidol 100 ml 02/01/19 14:48 02/01/19 15:56 Isovue-300 (61%) IVPUSH 02/01/19 14:49 100 ml ONETIME ONE Administration Departure - Departure Time of Disposition: 16:58 Disposition: Home, Self-Care 01 Condition: Good Clinical Impression: Abdominal pain Qualifiers: Abdominal location: right upper quadrant Qualified Code(s): R10.11 - Right upper quadrant pain - Discharge Information *PRESCRIPTION DRUG MONITORING PROGRAM REVIEWED*: No *COPY OF PRESCRIPTION DRUG MONITORING REPORT IN PATIENT BJORN: No Instructions: Abdominal Pain, Adult, [id number] Referrals: Connie Beck PA [Primary Care Provider] - Forms: ED Department Discharge Care Plan Goals: PT seen in the ER with right upper abdominal pain at this time labs were within normal limits CT showed no cause for the pain at this time patient will be sent home and follow-up by primary final assessment is abdominal pain unknown etiology - My Orders Last 24 Hours: My Active Orders 02/01/19 14:43 Abdomen Pelvis w Cont [CT] Stat - Assessment/Plan Last 24 Hours: My Active Orders 02/01/19 14:43 Abdomen Pelvis w Cont [CT] Stat
[2019-02-01] MEDS ORDERED: Iopamidol 612 MG/ML 100 ML Bottle IVPUSH ONE (14:48)
[2019-02-01 15:27] LABS: CHLORIDE,CL 102 mmol/L (98-107); SODIUM,NA 140 mmol/L (136-145)
== END 2019-02-01 17:05 | disposition home or self-care (01) ==
LOC: LL.ED 13:45
DX: R10.11 Right upper quadrant pain (principal); E11.9 Type 2 diabetes mellitus without complications; Z88.1 Allergy status to other antibiotic agents; Z88.8 Allergy status to other drugs, medicaments and biological substances; Z79.82 Long term (current) use of aspirin; Z79.899 Other long term (current) drug therapy
CPT/HCPCS: 36000; 36415; 74177; 80053; 81001; 85025; 99285; Q9967; 99283

== ENCOUNTER 2019-05-22 16:55 | Emergency (ER) | payer OTHER ==
[2019-05-22] MEDS ORDERED: Sodium Chloride 0.9% 10 ML Syringe FLUSH PRN (17:20)
--- NOTE | 2019-05-22 17:20 | EDM.PDOC ---
ED HPI GENERAL MEDICAL PROBLEM - General Chief Complaint: General Stated Complaint: sore throat, headache Time Seen by Provider: 05/22/19 17:15 Source of Information: Reports: Patient, Snf Records, Old Records ([facility] EMR. No paper hospital chart available.), Other ( [facility]) History Limitations: Reports: Altered Mental Status - History of Present Illness INITIAL COMMENTS - FREE TEXT/NARRATIVE: The patient was brought to the emergency room via transport vehicle from [facility] in [place] for evaluation of multiple nonspecific complaints , including generalized arthralgias, sore throat, cough, diffuse abdominal pain , nausea, etc. He is a somewhat poor historian secondary to his baseline mental status. The patient was apparently evaluated by his regular provider, Carolina Maciel MD at [facility] [place], who requested the patient be evaluated in the emergency room after she saw the patient during shelter rounds today. He does have a long history of intermittent abdominal pain for at least one year with most recent evaluation in our emergency room on 02/01/[address] scan of the abdomen and pelvis at that time as below. The patient denies any chest pain/pressure, heart flutter, dizziness, orthostasis, orthopnea, diaphoresis, paresthesias, recent decreased exercise tolerance, or any other anginal-type symptoms. No recent history of heartburn, emesis, diarrhea, melena , gross hematochezia, or any food intolerance, including fatty foods, etc.. No apparent recent history of gross hematuria, colic, or other UTI symptoms. The patient also denies any recent fever, wheezing, dyspnea, etc., although he recently completed a course of Cortisporin otic suspension for otitis externa and doxycycline for some bronchitis after evaluation by his regular provider in 05/11/19. Onset: Unknown/Unsure, Other (As above) Duration: Constant, Getting Worse Location: Reports: Generalized, Other (As above) Quality: Reports: Ache, Same as Previous Episode Severity: Mild Improves with: Reports: None Worsens with: Reports: None Context: Reports: Other (As above). Denies: Sick Contact, Trauma Associated Symptoms: Reports: Confusion (Stable chronic), Cough, Fever/Chills, Headaches (Nonspecific chronic), Nausea/Vomiting (No emesis). Denies: Chest Pain, Diaphoresis, Malaise, Shortness of Breath, Syncope, Weakness Treatments [employer]: Reports: Other Medication(s) (Recent antibiotics as above) Headache Pain Score (Numeric/FACES): 4 - Related Data Allergies Allergy/AdvReac Type Severity Reaction Status Date / Time amoxicillin Allergy Nausea Verified 05/22/19 17:12 cephalexin Allergy Nausea Verified 05/22/19 17:12 clavulanic acid Allergy Nausea Verified 05/22/19 17:12 [From Augmentin] codeine Allergy Nausea Verified 05/22/19 17:12 metoclopramide Allergy Nausea Verified 05/22/19 17:12 Home Meds: Home Meds Alum Hydrox/Mag Hydrox/Simeth [Mag-Al Plus] 5 ml PO QID PRN 11/17/17 [History] Cholecalciferol (Vitamin D3) [Vitamin D3] 2,000 unit PO DAILY 11/17/17 [History] Clopidogrel Bisulfate [Clopidogrel] 75 mg PO DAILY@11/17/17 [History] DULoxetine [Cymbalta] 60 mg PO DAILY@11/17/17 [History] Fluticasone Furoate [Flonase Sensimist] 2 sprays INH DAILY 11/17/17 [History] Folic Acid 1 mg PO DAILY@119911/17/17 [History] Furosemide 80 mg PO DAILY 11/17/17 [History] Insulin Aspart [NovoLOG] 3 units SUBCUT TID 11/17/17 [History] Insulin Glargine,Hum.Rec.Anlog [Lantus Solostar] 10 unit SQ DAILY@199911/17/17 [History] Isosorbide Mononitrate [Isosorbide Mononitrate ER] 60 mg PO DAILY 11/17/17 [ History] Methyl Salicylate/Menthol [Muscle Rub] 1 applic TP QID PRN 11/17/17 [History] Metoprolol Tartrate 12.5 mg PO BID 11/17/17 [History] Omeprazole 40 mg PO DAILY 11/17/17 [History] Potassium Chloride 10 meq PO DAILY@1200 11/17/17 [History] Pravastatin Sodium [Pravachol] 10 mg PO DAILY@11/17/17 [History] Pregabalin [Lyrica] 100 mg PO TID 11/17/17 [History] Riboflavin [Vitamin B-2] 100 mg PO DAILY 11/17/17 [History] Sennosides/Docusate Sodium [Sennosides-Docusate Sodium] 1 each PO BID 11/17/17 [ History] diphenhydrAMINE HCl [Benadryl] 25 mg PO Q8HR PRN 11/17/17 [History] fentaNYL [Fentanyl] 12 mcg TD Q48H 11/17/17 [History] fentaNYL [Fentanyl] 25 mcg TD Q48H 11/17/17 [History] guaiFENesin/Dextromethorphan [Gs Nikia Dm Cough Syrup] 10 ml PO Q4HR PRN [History] hydrOXYzine pamoate [Hydroxyzine Pamoate] 25 mg PO TID 11/17/17 [History] oxyCODONE 5 mg PO Q4H PRN 11/17/17 [History] Bisacodyl [Dulcolax] 5 mg PO DAILY PRN 11/30/18 [History] Calcium Carbonate [Tums Extra Strength] 750 mg PO DAILY PRN 11/30/18 [History] Divalproex Sodium [Depakote Sprinkle] 500 mg PO DAILY@20 11/30/18 [History] Donepezil HCl [Aricept] 10 mg PO BID 11/30/18 [History] Ondansetron [Zofran] 4 mg PO DAILY 11/30/18 [History] QUEtiapine [SEROquel] 25 mg PO DAILY 11/30/18 [History] QUEtiapine [SEROquel] 100 mg PO DAILY@20 11/30/18 [History] oxyCODONE 5 mg PO DAILY 11/30/18 [History] Albuterol Sulfate 1 vial INH BID 05/22/19 [History] Bisacodyl [Dulcolax] 10 mg PO DAILY PRN 05/22/19 [History] Clotrimazole [Lotrimin AF 1% Crm] 1 dose TOP BID 05/22/19 [History] Dextran 70/Hypromellose [Artificial Tears Eye Drops] 2 drop EYEBOTH Q4H PRN 12/03 [History] Lidocaine 4% [Xylocaine 4% Top Soln] 1 dose TOP BID 05/22/19 [History] Lidocaine 5% [Lidoderm 5%] 2 patch TOP DAILY 05/22/19 [History] Loratadine 10 mg PO DAILY 05/22/19 [History] Magnesium Hydroxide [Milk of Magnesia] 30 ml PO DAILY PRN 05/22/19 [History] Menthol/Camphor [Sarna Anti-Itch Lotion] 1 dose TOP Q6H PRN 05/22/19 [History] Miconazole Nitrate [Micro-Guard] 1 dose TOP BID 05/22/19 [History] Pregabalin [Lyrica] 25 mg PO TID 05/22/19 [History] QUEtiapine [SEROquel] 50 mg PO 1600 05/22/19 [History] amLODIPine [Norvasc] 5 mg PO DAILY 05/22/19 [History] Past Medical History HEENT History: Reports: Allergic Rhinitis, Cataract, Hard of Hearing, Impaired Vision, Other (See Below). Denies: Glaucoma, Macular Degeneration, Otitis Media , Retinal Detachment Other HEENT History: Presbycusis with bilateral hearing aid therapy. Patient wears glasses. Possible diabetic retinopathy with additional history of right sided versus bilateral ischemic optic neuropathy. Cardiovascular History: Reports: Arrhythmia, Blood Clots/VTE/DVT, Bypass, CAD, Cardiomyopathy, Heart Failure, High Cholesterol, Hypertension, MA, PTCA, PVD, Stents, Other (See Below). Denies: Afib, Aneurysm, Heart Murmur, Syncope Other Cardiovascular History: MA on 10/15/02. 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 Left atrial enlargement by echocardiogram. Nonsymptomatic PACs and atrial tachycardia by event monitor Elevated d-dimer on 11/30/18 secondary to small left upper lobe pulmonary embolism with negative venous Doppler studies of the lower extremities. Respiratory History: Reports: Bronchitis, Recurrent, COPD, Intubation, Previous , Sleep Apnea, Other (See Below). Denies: Asthma, Intubation, Difficult, PE, Pneumonia, Recurrent, Pneumothorax, Pulmonary Fibrosis, TB Other Respiratory History: Small left upper lobe pulmonary nodule with additional 2 small right lower lobe pulmonary nodules by CT scan in 2019. Additional small left upper lobe PE confirmed by CTA of the chest on 12/01/18 with no current anticoagulation therapy.. Old right sixth and seventh rib fractures by chest x-ray. History of acute respiratory failure. Gastrointestinal History: Reports: Chronic Constipation, Colon Polyp, Diverticulosis, GERD, Hiatal Hernia, Other (See Below). Denies: Celiac Disease , Cholelithiasis, Fecal Incontinence, Gastritis, GI Bleed, Hemorrhoids, Hepatitis, Inflammatory Bowel Disease, Irritable Bowel Syndrome, Jaundice, Pancreatitis, PUD Other Gastrointestinal History: Small hiatal hernia by EGD in 2019. Diverticulosis with previous history of diverticulitis. Genitourinary History: Reports: BPH, Chronic Renal Insuffiency, Diabetic Nephropathy, Other (See Below). Denies: Acute Renal Failure, Renal Calculus, Retention, Urinary, STD, Urinary Incontinence, UTI, Recurrent Other Genitourinary History: Stage III diabetic nephropathy. Benign right renal cyst Musculoskeletal History: Reports: Arthritis, Back Pain, Chronic, Fracture, Neck Pain, Chronic, Osteoarthritis, Osteoporosis, Other (See Below). Denies: Gout, RA, SLE Other Musculoskeletal History: Rib fractures as above. Periprosthetic left proximal humeral/shoulder fracture on 02/10/18 with no additional surgery required. Previous Left shoulder fracture with status total arthroplasty as below. Chronic pain syndrome with chronic narcotic use. 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 Scoliosis. Neurological History: Reports: Alzheimers Disease, Brain Injury, Concussion, CVA , Head Trauma, Neuropathy, Diabetic, Neuropathy, Peripheral, TIA, Other (See Below). Denies: Cerebral Aneurysms, Headaches, Chronic, Migraines, MS, Parkinson's, Seizure, Vertigo Other Neuro History: CVA on 09/20/06. 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 History of hallucinations. Right trigeminal neuralgia. Psychiatric History: Reports: Addiction, Alzheimers Disease, Anxiety, Dementia , Depression, Hallucinations, Panic Attack, Other (See Below). Denies: Abuse, Victim of, ADD, ADHD, Psych Hospitalization(s), PTSD, Suicide Attempt, Suicidal Ideation Other Psychiatric History: Chronic narcotic use including oxycodone, fentanyl, lidocaine patches, etc. Endocrine/Metabolic History: Reports: Diabetes, Type II, IDDM, Obesity/BMI 30+, Osteopenia, Osteoporosis, Vitamin D Deficiency, Other (See Below). Denies: Diabetes, Type I, Diabetes Mellitus, Type 3c, Hypothyroidism Other Endocrine/Metabolic History: Hypokalemia, testosterone deficiency. Hypoalbuminemia. Hematologic History: Reports: Anemia, B12 Deficiency, Blood Transfusion(s). Denies: Iron Deficiency Immunologic History: Reports: None. Denies: AIDS, HIV, SLE Dermatologic History: Reports: Other (See Below) Other Dermatologic History: Recurrent tinea corporis - Infectious Disease History Infectious Disease History: Reports: Chicken Pox, Shingles - Past Surgical History Head Surgeries/Procedures: Reports: None HEENT Surgical History: Reports: Cataract Surgery, Oral Surgery, Other (See Below) Other HEENT Surgeries/Procedures: Bilateral cataract surgery in 2012. Multiple teeth extractions. Cardiovascular Surgical History: Reports: Carotid Endarterectomy, Coronary Artery Bypass, Coronary Artery Stent, Percutaneous Transluminal Angioplasty, Other (See Below) Other Cardiovascular Surgeries/Procedures: CABG in October 2002. Respiratory Surgical History: Reports: Other (See Below) Other Respiratory Surgeries/Procedures: Right-sided thorascopic examination with subsequent conversion to open procedure/thoracotomy with drainage of empyema and decortication of the right lower lobe on 04/29/17. GI Surgical History: Reports: Colonoscopy, EGD, Polypectomy, Other (See Below) Other GI Surgeries/Procedures: EGD on 12/04/18 with previous evaluation in 2001. Male Surgical History: Reports: Other (See Below) Other Male Surgeries/Procedures: Bilateral orchidectomy. Note scrotal plastic surgery as below. Neurological Surgical History: Reports: C-Spine, Lumbar Spine, Other (See Below) Other Neurological Surgeries/Procedures: C4C6 discectomy with spinal fusion in August 2005. Musculoskeletal Surgical History: Reports: Carpal Tunnel, Joint Replacement, ORIF, Shoulder Surgery, Other (See Below) Other Musculoskeletal Surgeries/Procedures:: ORIF with open proximal humeral fracture reduction on 03/01/18. Left shoulder total arthroplasty. Bilateral carpal tunnel syndrome. Dermatological Surgical History: Reports: Plastic Surgical Reconstruction/Repair , Other (See Below) Other Dermatological Surgeries/Procedures: Rethro cutaneous fistula repair on . 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 - Past Imaging History Past Imaging History: Reports: Cardiac Echo (Last cardiac echocardiogram on 12/01 with ejection fraction of 55% and otherwise findings as above. Previous echocardiogram on 04/26/17.), CAT Scan (CT of the abdomen and pelvis with IV contrast on 02/01/19. Coronary CT of the chest on 12/14/17. CT of the head on 01/25. CT of the chest on 12/14/17. CTA of the chest on 12/01/18 positive for small PE as above.), Event Monitor (10/15/16.), Sleep Study, Stress Testing ( Persantine Cardiolite stress test on 05/16/18 was indeterminate with ejection fraction of 54% with negative follow-up Lexiscan PET scan of the heart on .), Swallow Study (Negative on 05/09/17.), Ultrasound (Negative right upper quadrant abdominal ultrasound on 12/02/18), Venous Doppler (Negative venous Doppler studies of the lower extremities on 11/30/18.) Social & Family History - Tobacco Use Smoking Status *Q: Never Smoker Tobacco Use Within Last Twelve Months: No Used Tobacco, but Quit: No Smoking Cessation Information Provided To Patient: No Second Hand Smoke Exposure: No Second Hand Smoke Education Provided: No - Caffeine Use Caffeine Use: Reports: None - Living Situation & Occupation Living situation: Reports: Extended Care Facility ([facility] in [place]) Occupation: Retired ED ROS GENERAL - Review of Systems Review Of Systems: ROS reveals no pertinent complaints other than HPI. ED EXAM, GENERAL - Physical Exam Exam: See Below Exam Limited By: No Limitations General Appearance: Alert, WD/WN, No Apparent Distress Eye Exam: Bilateral Eye: EOMI, Normal Inspection (Patient is not wearing glasses today. No nystagmus), PERRL Ears: Normal External Exam, Normal Canal, Normal TMs, Hearing Loss (Mild to moderate bilateral hearing loss with current hearing aide therapy over the patient only has his left hearing aid today.) Nose: Normal Inspection, Normal Mucosa, No Blood Throat/Mouth: Normal Lips, Normal Gums, No Airway Compromise. No: Normal Teeth (Multiple missing teeth with no acute caries), Normal Oropharynx (Trace erythema in the posterior pharynx without pinpoint white exudates or peritonsillar abscess), Normal Voice, Dysphagia, Perioral Cyanosis Head: Atraumatic, Normocephalic. No: Facial Swelling, Facial Tenderness, Sinus Tenderness Neck: Carotid Bruit (Mild bilateral carotid bruits). No: Supple, Non-Tender, Full Range of Motion, Lymphadenopathy (L), Lymphadenopathy (R), Thyromegaly Respiratory/Chest: No Respiratory Distress, Lungs Clear, Normal Breath Sounds, No Accessory Muscle Use, Chest Non-Tender. No: Pleural Rub, Retractions Cardiovascular: Normal Peripheral Pulses, Regular Rate, Rhythm, No Edema, No Gallop, No JVD, No Murmur, No Rub. No: Gallop/S3, Gallop/S4, Friction Rub Peripheral Pulses: 2+: Radial (L), Radial (R) GI/Abdominal: Normal Bowel Sounds, Soft, Non-Tender, No Organomegaly, No Distention, No Abnormal Bruit, No Mass, Other (Obese). No: Guarding (Male) Exam: Deferred Rectal (Males) Exam: Deferred Back Exam: Full Range of Motion, Other (Moderate scoliosis). No: CVA Tenderness (L), CVA Tenderness (R), Muscle Spasm Extremities: Normal Range of Motion, Non-Tender, No Pedal Edema, Normal Capillary Refill. No: Emma's Sign Neurological: Alert, CN II-XII Intact, No Motor/Sensory Deficits, Confused ( Stable baseline mild organic brain syndrome) Psychiatric: Normal Affect, Normal Mood Skin Exam: Warm, Dry, Intact, Normal Color, No Rash. No: Diaphoretic, Wound/ Incision Lymphatic: No Adenopathy Course - Vital Signs Last Recorded V/S: Last Vital Signs Temp 36.0 C 05/22/19 17:02 Pulse 75 05/22/19 17:02 Resp 16 05/22/19 17:02 BP 146/70 H 05/22/19 17:02 Pulse Ox 96 05/22/19 17:02 Vital Signs - 24 hr 05/22/19 17:02 Temperature [ 36.0 C Tympanic] Pulse, 75 Peripheral [ Left Brachial] Respiratory 16 Rate Blood Pressure 146/70 H [Right Upper Arm] O2 Sat by Pulse 96 Oximetry - Orders/Labs/Meds Orders: Active Orders 24 hr Category Date Time Status Peripheral IV Care [RC] . DIRECTED Care 05/22/19 17:21 Active Abdomen Series w Chest 1V [CR] Stat Exams 05/22/19 17:20 Taken CULTURE STREP A CONFIRMATION [] Stat Lab 05/22/19 16:55 Results CULTURE URINE [] Stat Lab 05/22/19 18:35 Received STREP SCRN A RAPID W CULT CONF [] Stat Lab 05/22/19 16:55 Results Obtain Past Medical Record [OM.PC] Urgent Oth 05/22/19 17:20 Active Peripheral IV Insertion Adult [OM.PC] Stat Oth 05/22/19 17:20 Ordered Resuscitation Status Stat Resus Stat 05/22/19 17:20 Ordered Labs: Laboratory Tests 05/22/19 05/22/19 05/22/19 Range/Units 17:40 17:40 17:40 WBC 5.6 (4.0-10.2) K/uL RBC 4.06 L (4.33-5.41) M/uL Hgb 11.6 L (13.1-16.8) g/dL Hct 36.1 L (39.0-49.0) % MCV 88.9 (84.0-98.0) fL MCH 28.6 (28.2-33.3) pg MCHC 32.1 (31.7-36.0) g/dL RDW 13.9 (11.2-14.1) % Plt Count 158 (150-350) K/uL Neut % (Auto) 55.8 (45.0-80.0) % Lymph % (Auto) 25.0 (10.0-50.0) % [place] % (Auto) 12.8 (2.0-14.0) % Eos % (Auto) 6.0 H (0.0-5.0) % Baso % (Auto) 0.4 (0.0-2.0) % Neut # (Auto) 3.15 (1.40-7.00) K/uL Lymph # (Auto) 1.41 (0.50-3.50) K/uL [place] # (Auto) 0.72 (0.00-1.00) K/uL Eos # (Auto) 0.34 (0.00-0.50) K/uL Baso # (Auto) 0.02 (0.00-0.20) K/uL PT 10.7 (9.5-12.0) SEC INR 1.0 APTT 27.6 (21.0-31.3) SEC Sodium (136-145) mmol/L Potassium (3.5-5.1) mmol/L Chloride (98-107) mmol/L Carbon Dioxide (21.0-32.0) mmol/L BUN (7-18) mg/dL Creatinine (0.51-1.17) mg/dL Est Cr Clr Drug Dosing Estimated GFR (MDRD) mL/min Glucose (74-106) mg/dL Lactic Acid (0.4-2.0) mmol/L Uric Acid (2.6-7.2) mg/dL Calcium (8.5-10.1) mg/dL Magnesium (1.8-2.4) mg/dL Total Bilirubin (0.2-1.0) mg/dL AST (15-37) U/L ALT (12-78) U/L Alkaline Phosphatase (46-116) IU/L Total Protein (6.4-8.2) g/dL Albumin (3.4-5.0) g/dL Amylase 50 (25-115) U/L Lipase (73-393) U/L Specimen Type Urine Color Urine Appearance Urine pH (5.0-9.0) Ur Specific [place] (1.005-1.030) Urine Protein (NEGATIVE) mg/dL Urine Glucose (UA) (NEGATIVE) mg/dL Urine Ketones (NEGATIVE) mg/dL Urine Occult Blood (NEGATIVE) Urine Nitrite (NEGATIVE) Urine Bilirubin (NEGATIVE) Urine Urobilinogen (0.2-1.0) E.U./dL Ur Leukocyte Esterase (NEGATIVE) Urine RBC /HPF Urine WBC /HPF Urine Bacteria (NONE TO FEW) /HPF 05/22/19 05/22/19 05/22/19 Range/Units 17:40 17:40 18:35 WBC (4.0-10.2) K/uL RBC (4.33-5.41) M/uL Hgb (13.1-16.8) g/dL Hct (39.0-49.0) % MCV (84.0-98.0) fL MCH (28.2-33.3) pg MCHC (31.7-36.0) g/dL RDW (11.2-14.1) % Plt Count (150-350) K/uL Neut % (Auto) (45.0-80.0) % Lymph % (Auto) (10.0-50.0) % [place] % (Auto) (2.0-14.0) % Eos % (Auto) (0.0-5.0) % Baso % (Auto) (0.0-2.0) % Neut # (Auto) (1.40-7.00) K/uL Lymph # (Auto) (0.50-3.50) K/uL [place] # (Auto) (0.00-1.00) K/uL Eos # (Auto) (0.00-0.50) K/uL Baso # (Auto) (0.00-0.20) K/uL PT (9.5-12.0) SEC INR APTT (21.0-31.3) SEC Sodium 140 (136-145) mmol/L Potassium 4.7 (3.5-5.1) mmol/L Chloride 101 (98-107) mmol/L Carbon Dioxide 32.2 H (21.0-32.0) mmol/L BUN 33 H (7-18) mg/dL Creatinine 1.71 H (0.51-1.17) mg/dL Est Cr Clr Drug Dosing TNP Estimated GFR (MDRD) 39 mL/min Glucose 239 H (74-106) mg/dL Lactic Acid 1.4 (0.4-2.0) mmol/L Uric Acid 5.8 (2.6-7.2) mg/dL Calcium 8.5 (8.5-10.1) mg/dL Magnesium 2.0 (1.8-2.4) mg/dL Total Bilirubin 0.3 (0.2-1.0) mg/dL AST 10 L (15-37) U/L ALT 12 (12-78) U/L Alkaline Phosphatase 75 (46-116) IU/L Total Protein 7.1 (6.4-8.2) g/dL Albumin 3.2 L (3.4-5.0) g/dL Amylase (25-115) U/L Lipase 111 (73-393) U/L Specimen Type Urinvoid Urine Color Yellow Urine Appearance Clear Urine pH 6.0 (5.0-9.0) Ur Specific [place] 1.020 (1.005-1.030) Urine Protein 30 H (NEGATIVE) mg/dL Urine Glucose (UA) 250 H (NEGATIVE) mg/dL Urine Ketones Negative (NEGATIVE) mg/dL Urine Occult Blood Negative (NEGATIVE) Urine Nitrite Negative (NEGATIVE) Urine Bilirubin Negative (NEGATIVE) Urine Urobilinogen 0.2 (0.2-1.0) E.U./dL Ur Leukocyte Esterase Negative (NEGATIVE) Urine RBC Not seen /HPF Urine WBC Not seen /HPF Urine Bacteria Not seen (NONE TO FEW) /HPF Urine specimen set up for culture and sensitivity Microbiology 05/22/19 17:55 Influenza Type A Antigen Screen - Final Nasal, Left NEGATIVE INFLUENZA A VIRUS AG REFERENCE RANGE: NEGATIVE Influenza Type B Antigen Screen - Final NEGATIVE INFLUENZA B VIRUS AG REFERENCE RANGE: NEGATIVE 05/22/19 16:55 Group A Streptococcus Rapid Screen - Final Throat NEGATIVE STREP A SCREEN REFERENCE RANGE: NEGATIVE Meds: Medications Discontinued Medications Generic Name Dose Route Start Last Admin Trade Name Freq PRN Reason Stop Dose Admin Famotidine 40 mg 05/22/19 17:20 05/22/19 19:29 Pepcid IVPUSH 05/22/19 17:21 Not Given ONETIME ONE Ondansetron HCl 4 mg 05/22/19 17:20 05/22/19 19:30 Zofran IVPUSH 05/22/19 17:21 Not Given ONETIME ONE Ondansetron HCl 4 mg 05/22/19 18:39 05/22/19 18:48 Zofran Odt PO 05/22/19 18:40 4 mg ONETIME ONE Administration Pantoprazole Sodium 40 mg 05/22/19 17:20 05/22/19 19:30 Protonix Iv IVPUSH 05/22/19 17:21 Not Given ONETIME ONE Sodium Chloride 10 ml 05/22/19 17:20 Saline Flush FLUSH ASDIRECTED PRN Keep Vein Open - Radiology Interpretation Free Text/Narrative:: Acute abdominal x-ray shows status post medial sternotomy with moderate cardiomegaly and probable pulmonary hypertension and/or borderline centralized CHF. No pneumothorax or significant coronary infiltrates with moderate bilateral atelectasis, including in the lower lobes bilaterally and right middle lobe. Moderate COPD, osteoarthritis, including spurs and scoliosis, etc. also noted. Mildly increased diffuse bowel gaseous pattern with moderate stool but no free air, fluid levels, ileus, obstruction, etc. Departure - Departure Time of Disposition: 19:40 Disposition: DC/Tfer to [facility] Condition: Fair Clinical Impression: IDDM (insulin dependent diabetes mellitus), Mixed anxiety depressive disorder, Organic brain syndrome, Hypoalbuminemia COPD (chronic obstructive pulmonary disease) Qualifiers: COPD type: emphysema Emphysema type: panlobular Qualified Code(s): J43.1 - Panlobular emphysema Osteoarthritis Qualifiers: Osteoarthritis location: multiple joints Osteoarthritis type: primary Qualified Code(s): M15.0 - Primary generalized (osteo)arthritis Abdominal pain Qualifiers: Abdominal location: right upper quadrant Qualified Code(s): R10.11 - Right upper quadrant pain Coronary artery disease Qualifiers: Coronary Disease-Associated Artery/Lesion type: bypass graft [place] vs. transplanted heart: [place] heart Associated angina: without angina Qualified Code(s): I25.810 - Atherosclerosis of coronary artery bypass graft(s) without angina pectoris Anemia Qualifiers: Anemia type: unspecified type Qualified Code(s): D64.9 - Anemia, unspecified - Discharge Information *PRESCRIPTION DRUG MONITORING PROGRAM REVIEWED*: Not Applicable *COPY OF PRESCRIPTION DRUG MONITORING REPORT IN PATIENT BJORN: Not Applicable Referrals: Carolina Maciel MD [Primary Care Provider] - Forms: ED Department Discharge Care Plan Goals: 1. Follow up with your regular provider in 10-14 days as needed, if symptoms persist. Bring these discharge instructions with you to that visit.. 2. [place] diet including encouragement of oral fluids such as sports drinks, etc. for 24-48 hours as directed. Advance to strict diverticulosis, ADA and heart healthy diet as tolerated thereafter. 3. Update Carolina Maciel MD at [facility] in [place] in the a.m. concerning patient's status with consideration of a laxative, HIDA scan, colonoscopy, workup for mild anemia, etc. depending on his symptoms and clinical course. 4. Please remember that we are ALWAYS here for you and want to answer any questions you may have. Feel free to call the hospital any time and we call you back [facility]. - Problem List & Annotations (1) Abdominal pain SNOMED Code(s): 56206136 Code(s): R10.9 - UNSPECIFIED ABDOMINAL PAIN Status: Acute Priority: High Annotation/Comment:: Nonspecific chronic generalized abdominal pain with history of constipation and chronic narcotic use. Note recent negative right upper quadrant abdominal ultrasound, CT of the abdomen and pelvis with contrast , and EGD as above. Patient may benefit from further workup including possible HIDA scan, colonoscopy, etc. as per discharge instructions. IV access could not be obtained with patient given Zofran ODT in the emergency room. Dietary treatment for now with [facility] to be updated in the a.m. Strict dietary information and orders provided to the shelter discharge. Note mild anemia with no evidence of GI bleed. Patient apparently did have a small bowel movement prior to arrival, although he would benefit from a laxative, which he refuses at this time. Patient is very concerned about his chronic abdominal pain, which has been present for more than one year as above with workup recommendations provided at discharge orders and as above. Qualifiers: Abdominal location: right upper quadrant Qualified Code(s): R10.11 - Right upper quadrant pain (2) Anemia SNOMED Code(s): 484206277 Code(s): D64.9 - ANEMIA, UNSPECIFIED Status: Acute Priority: Medium Onset Date: 05/22/19 Annotation/Comment:: As above. Consider vitamin B 12 level, TIBC panel, ferritin level, etc. Qualifiers: Anemia type: unspecified type Qualified Code(s): D64.9 - Anemia, unspecified (3) Hypoalbuminemia SNOMED Code(s): 880893234 Code(s): E88.09 - OTH DISORDERS OF PLASMA-PROTEIN METABOLISM, NEC Status: Chronic Priority: Medium Annotation/Comment:: Consider high protein Glucerna supplement. (4) COPD (chronic obstructive pulmonary disease) SNOMED Code(s): 56695135 Code(s): J44.9 - CHRONIC OBSTRUCTIVE PULMONARY DISEASE, UNSPECIFIED Status : Chronic Priority: Medium Annotation/Comment:: No recent fever or bronchitic type symptoms with recent completion of doxycycline as above. Note additional history of sleep apnea. Qualifiers: COPD type: emphysema Emphysema type: panlobular Qualified Code(s): J43.1 - Panlobular emphysema (5) Coronary artery disease SNOMED Code(s): 93887440 Code(s): I25.10 - ATHSCL HEART DISEASE OF [place] CORONARY ARTERY W/O ANG PCTRS Status: Chronic Priority: Medium Annotation/Comment:: No chest pain or anginal type symptoms. Note Status post CABG and previous PTCA/stent. Qualifiers: Coronary Disease-Associated Artery/Lesion type: bypass graft [place] vs. transplanted heart: [place] heart Associated angina: without angina Qualified Code(s): I25.810 - Atherosclerosis of coronary artery bypass graft(s) without angina pectoris (6) IDDM (insulin dependent diabetes mellitus) SNOMED Code(s): 82812722 Code(s): E11.9 - TYPE 2 DIABETES MELLITUS WITHOUT COMPLICATIONS; Z79.4 - METAL LOADER (CURRENT) USE OF INSULIN Status: Chronic Priority: Medium Annotation/Comment:: Note diabetic nephropathy, neuropathy, etc. Continue to observe closely by regular provider moderately elevated nonfasting glucose today. Metformin was apparently discontinued on 05/11 by his regular provider. (7) Mixed anxiety depressive disorder SNOMED Code(s): 641979591 Code(s): F41.8 - OTHER SPECIFIED ANXIETY DISORDERS Status: Chronic Priority: Medium Annotation/Comment:: Continue to observe closely by accepting provider with psychiatry consultation depending on his clinical course. (8) Organic brain syndrome SNOMED Code(s): 546474173 Code(s): F09 - UNSP MENTAL DISORDER DUE TO KNOWN PHYSIOLOGICAL CONDITION Status: Chronic Priority: Medium Annotation/Comment:: Stable by history with chronic narcotic use which could affect mental status. Continue to observe closely by regular provider. Patient somewhat confrontational today, however not aggressive. (9) Peptic reflux disease SNOMED Code(s): 503971389 Code(s): K21.9 - GASTRO-ESOPHAGEAL REFLUX DISEASE WITHOUT ESOPHAGITIS Status: Chronic Priority: Medium Annotation/Comment:: Stable by history and IV access could not be obtained as above. Continue current therapy. (10) Renal insufficiency SNOMED Code(s): 735334804, 879147397 Code(s): N28.9 - DISORDER OF KIDNEY AND URETER, UNSPECIFIED Status: Chronic Priority: Medium Annotation/Comment:: Stable stage III diabetic nephropathy with mild progression of his chronic renal insufficiency by today's blood work. Note recent discontinuation of metformin on 05/11. Continue to observe closely by his provider. - Problem List Review Problem List Initiated/Reviewed/Updated: Yes - My Orders Last 24 Hours: My Active Orders 05/22/19 16:55 CULTURE STREP A CONFIRMATION [RM] Stat STREP SCRN A RAPID W CULT CONF [RM] Stat 05/22/19 17:20 Abdomen Series w Chest 1V [CR] Stat Obtain Past Medical Record [OM.PC] Urgent Peripheral IV Insertion Adult [OM.PC] Stat Resuscitation Status Stat 05/22/19 17:21 Peripheral IV Care [RC] . DIRECTED 05/22/19 18:35 CULTURE URINE [RM] Stat - Assessment/Plan Last 24 Hours: My Active Orders 05/22/19 16:55 CULTURE STREP A CONFIRMATION [RM] Stat STREP SCRN A RAPID W CULT CONF [RM] Stat 05/22/19 17:20 Abdomen Series w Chest 1V [CR] Stat Obtain Past Medical Record [OM.PC] Urgent Peripheral IV Insertion Adult [OM.PC] Stat Resuscitation Status Stat 05/22/19 17:21 Peripheral IV Care [RC] . DIRECTED 05/22/19 18:35 CULTURE URINE [RM] Stat Assessment:: As above Plan: As above. Extensive precautions were given to the patient, who is in agreement with the treatment plan. See Patient Instructions for further treatment and plan. A copy of this emergency room note will be submitted to the shelter.
[2019-05-22 18:15] LABS: CHLORIDE,CL 101 mmol/L (98-107); SODIUM,NA 140 mmol/L (136-145)
[2019-05-22] MEDS: Ondansetron 4 MG Tab.DIS PO ONE (18:48)
[2019-05-22] MEDS: Famotidine 20 MG/2 ML SDV IVPUSH ONE (19:29)
[2019-05-22] MEDS: Ondansetron 4 MG/2 ML SDV IVPUSH ONE (19:30)
[2019-05-22] MEDS: Pantoprazole 40 MG Vial IVPUSH ONE (19:30)
== END 2019-05-22 19:40 ==
LOC: LL.ED 16:55
DX: J43.1 Panlobular emphysema (principal); E11.22 Type 2 diabetes mellitus with diabetic chronic kidney disease; I12.9 Hypertensive chronic kidney disease with stage 1 through stage 4 chronic kidney disease, or unspecified chronic kidney disease; N18.9 Chronic kidney disease, unspecified; F41.8 Other specified anxiety disorders; F09 Unspecified mental disorder due to known physiological condition; E88.09 Other disorders of plasma-protein metabolism, not elsewhere classified; M15.0 Primary generalized (osteo)arthritis; R10.11 Right upper quadrant pain; I25.810 Atherosclerosis of coronary artery bypass graft(s) without angina pectoris; D63.1 Anemia in chronic kidney disease; H91.93 Unspecified hearing loss, bilateral; K21.9 Gastro-esophageal reflux disease without esophagitis; I25.2 Old myocardial infarction; E11.51 Type 2 diabetes mellitus with diabetic peripheral angiopathy without gangrene; G30.9 Alzheimer's disease, unspecified; F02.80 Dementia in other diseases classified elsewhere, unspecified severity, without behavioral disturbance, psychotic disturbance, mood disturbance, and anxiety; E11.42 Type 2 diabetes mellitus with diabetic polyneuropathy; E66.9 Obesity, unspecified; E11.36 Type 2 diabetes mellitus with diabetic cataract; H26.9 Unspecified cataract; Z88.0 Allergy status to penicillin; Z88.1 Allergy status to other antibiotic agents; Z88.5 Allergy status to narcotic agent; Z88.8 Allergy status to other drugs, medicaments and biological substances; Z95.1 Presence of aortocoronary bypass graft; Z95.5 Presence of coronary angioplasty implant and graft; Z79.899 Other long term (current) drug therapy; Z79.02 Long term (current) use of antithrombotics/antiplatelets; Z79.4 Long term (current) use of insulin; Z86.73 Personal history of transient ischemic attack (TIA), and cerebral infarction without residual deficits
CPT/HCPCS: 36415; 74022; 80053; 81001; 82150; 83605; 83690; 83735; 84550; 85025; 85610; 85730; 87081; 87086; 87430; 87804; 99284; 99285-25; A9270-GY

== ENCOUNTER 2020-03-28 16:48 | Emergency (ER) | payer OTHER ==
--- NOTE | 2020-03-28 16:52 | EDM.PDOC ---
ED HPI GENERAL MEDICAL PROBLEM - General Chief Complaint: General Stated Complaint: fall, head laceration Time Seen by Provider: 03/28/20 16:51 Source of Information: Reports: Patient, EMS, [facility] Records, Old Records ([facility] EMR. No paper hospital chart available.), Other ([facility] EMR reviewed on 05/22/2019). Denies: EMS Notes Reviewed (Not available at time of dictation) History Limitations: Reports: Altered Mental Status - History of Present Illness INITIAL COMMENTS - FREE TEXT/NARRATIVE: The patient is a somewhat poor historian secondary to his baseline organic brain syndrome with majority of history taken from limited report from the [facility] staff and the electric motor tester assembler. The patient was apparently going to bathroom on his own with his wheelchair when he slipped resulting in an unwitnessed fall and head contusion at about 15:50 hours this afternoon. A dressing was placed by the nurses and electric motor tester assembler with moderate bleeding at the scene, however no history of loss of consciousness, seizure activity, change in mental status/previous neurological deficits, neck/back pain, etc. with no apparent other injuries. No recent history of chest pain or anginal type symptoms. Patient denied any nausea or other abdominal complaints. No recent history of fever or bronchitic type symptoms. No apparent recent headaches, visual changes, etc. Onset: Today, Sudden, Unknown/Unsure Onset Date: 03/28/20 Onset Time: 15:50 Duration: Constant Location: Reports: Head, Back (Stable chronic low back pain by history). Denies: Face, Neck, Chest, Abdomen, Pelvis, Upper Extremity, Left, Upper Extremity, Right, Lower Extremity, Left, Lower Extremity, Right, Generalized, Radiates to Quality: Reports: Sharp, Throbbing Severity: Mild Improves with: Reports: None Worsens with: Reports: None Context: Reports: Trauma (As above) Associated Symptoms: Reports: Confusion (Stable chronic). Denies: Chest Pain, Cough, Diaphoresis, Fever/Chills, Headaches, Loss of Appetite, Malaise, Nausea/Vomiting, Seizure, Shortness of Breath, Syncope, Weakness Treatments LOCKSTITCH ZIPPER SETTER: Reports: Dressing(s) (Is at right foot pain gone or if that brings the pain suppose it was on his his head was noted rather than his foot) right foot Pain Score (Numeric/FACES): 3 (right head?) - Related Data Allergies Allergy/AdvReac Type Severity Reaction Status Date / Time cephalexin Allergy Intermediate Nausea Verified 03/28/20 19:54 clavulanic acid Allergy Intermediate Nausea Verified 03/28/20 19:54 [From Augmentin] codeine Allergy Intermediate Nausea Verified 03/28/20 19:54 metoclopramide Allergy Intermediate Nausea Verified 03/28/20 19:54 amoxicillin Allergy Mild Nausea Verified 03/28/20 19:54 Home Meds: Home Meds Alum Hydrox/Mag Hydrox/Simeth [Mag-Al Plus] 5 ml PO QID PRN 11/17/17 [History] Cholecalciferol (Vitamin D3) [Vitamin D3] 2,000 unit PO DAILY 11/17/17 [History] Clopidogrel Bisulfate [Clopidogrel] 75 mg PO DAILY@11/17/17 [History] DULoxetine [Cymbalta] 60 mg PO DAILY@11/17/17 [History] Fluticasone Furoate [Flonase Sensimist] 2 sprays INH DAILY 11/17/17 [History] Folic Acid 1 mg PO DAILY@119911/17/17 [History] Furosemide 80 mg PO DAILY 11/17/17 [History] Insulin Aspart [NovoLOG] 3 units SUBCUT TID 11/17/17 [History] Insulin Glargine,Hum.Rec.Anlog [Lantus Solostar] 10 unit SQ DAILY@199911/17/17 [History] Isosorbide Mononitrate [Isosorbide Mononitrate ER] 60 mg PO DAILY 11/17/17 [History] Methyl Salicylate/Menthol [Muscle Rub] 1 applic TP QID PRN 11/17/17 [History] Metoprolol Tartrate 12.5 mg PO BID 11/17/17 [History] Omeprazole 40 mg PO DAILY 11/17/17 [History] Potassium Chloride 10 meq PO DAILY@119911/17/17 [History] Pravastatin Sodium [Pravachol] 10 mg PO DAILY@11/17/17 [History] Pregabalin [Lyrica] 100 mg PO TID 11/17/17 [History] Riboflavin (Vitamin B2) [Vitamin B-2] 100 mg PO DAILY 11/17/17 [History] Sennosides/Docusate Sodium [Sennosides-Docusate Sodium] 1 each PO BID 11/17/17 [History] diphenhydrAMINE HCL [Benadryl] 25 mg PO Q8HR PRN 11/17/17 [History] fentaNYL [Fentanyl] 12 mcg TD Q48H 11/17/17 [History] fentaNYL [Fentanyl] 25 mcg TD Q48H 11/17/17 [History] guaiFENesin/Dextromethorphan [Gs Tussin Dm Cough Syrup] 10 ml PO Q4HR PRN 11/17/17 [History] hydrOXYzine pamoate [Hydroxyzine Pamoate] 25 mg PO TID 11/17/17 [History] oxyCODONE 5 mg PO Q4H PRN 11/17/17 [History] Calcium Carbonate [Tums Extra Strength] 750 mg PO DAILY PRN 11/30/18 [History] Divalproex Sodium [Depakote Sprinkle] 500 mg PO DAILY@20 11/30/18 [History] Donepezil HCl [Aricept] 10 mg PO BID 11/30/18 [History] Ondansetron [Zofran] 4 mg PO DAILY 11/30/18 [History] QUEtiapine [SEROquel] 25 mg PO DAILY 11/30/18 [History] QUEtiapine [SEROquel] 100 mg PO DAILY@20 11/30/18 [History] bisacodyL [Dulcolax] 5 mg PO DAILY PRN 11/30/18 [History] oxyCODONE 5 mg PO DAILY 11/30/18 [History] Albuterol Sulfate 1 vial INH BID 05/22/19 [History] Clotrimazole [Lotrimin AF 1% Crm] 1 dose TOP BID 05/22/19 [History] Dextran 70/Hypromellose [Artificial Tears Eye Drops] 2 drop EYEBOTH Q4H PRN 05/22/19 [History] Lidocaine 4% [Xylocaine 4% Top Soln] 1 dose TOP BID 05/22/19 [History] Lidocaine 5% [Lidoderm 5%] 2 patch TOP DAILY 05/22/19 [History] Loratadine 10 mg PO DAILY 05/22/19 [History] Magnesium Hydroxide [Milk of Magnesia] 30 ml PO DAILY PRN 05/22/19 [History] Menthol/Camphor [Sarna Anti-Itch Lotion] 1 dose TOP Q6H PRN 05/22/19 [History] Miconazole Nitrate [Micro-Guard] 1 dose TOP BID 05/22/19 [History] Pregabalin [Lyrica] 25 mg PO TID 05/22/19 [History] QUEtiapine [SEROquel] 50 mg PO 1600 05/22/19 [History] amLODIPine [Norvasc] 5 mg PO DAILY 05/22/19 [History] bisacodyL [Dulcolax] 10 mg PO DAILY PRN 05/22/19 [History] Past Medical History HEENT History: Reports: Allergic Rhinitis, Cataract, Hard of Hearing, Impaired Vision, Other (See Below). Denies: Glaucoma, Macular Degeneration, Otitis Media, Retinal Detachment Other HEENT History: Presbycusis with bilateral hearing aid therapy. Patient wears glasses. Possible diabetic retinopathy with additional history of right sided versus bilateral ischemic optic neuropathy. Cardiovascular History: Reports: Arrhythmia, Blood Clots/VTE/DVT, Bypass, CAD, Cardiomyopathy, Heart Failure, High Cholesterol, Hypertension, NE, PTCA, PVD, Stents, Other (See Below). Denies: Afib, Aneurysm, Heart Murmur, Syncope Other Cardiovascular History: NE on 10/15/02. Complete bifascicular bundle-branch block with cardiomegaly. Left atrial enlargement by echocardiogram. Nonsymptoma tic PACs and atrial tachycardia by event monitor Elevated d-dimer on 11/30/18 secondary to small left upper lobe pulmonary embolism with negative venous Doppler studies of the lower extremities. Respiratory History: Reports: Bronchitis, Recurrent, COPD, Intubation, Previous, Sleep Apnea, Other (See Below). Denies: Asthma, Intubation, Difficult, PE, Pneumonia, Recurrent, Pneumothorax, Pulmonary Fibrosis, TB Other Respiratory History: Small left upper lobe pulmonary nodule with additional 2 small right lower lobe pulmonary nodules by CT scan in 2019. Additional small left upper lobe PE confirmed by CTA of the chest on 12/01/18 with no current anticoagulation therapy.. Old right sixth and seventh rib fractures by chest x-ray. History of acute respiratory failure. Gastrointestinal History: Reports: Chronic Constipation, Colon Polyp, Diverticulosis, GERD, Hiatal Hernia, Other (See Below). Denies: Celiac Disease, Cholelithiasis, Fecal Incontinence, Gastritis, GI Bleed, Hemorrhoids, Hepatitis, Inflammatory Bowel Disease, Irritable Bowel Syndrome, Jaundice, Pancreatitis, PUD Other Gastrointestinal History: Small hiatal hernia by EGD in 2019. Diverticulosis with previous history of diverticulitis. Genitourinary History: Reports: BPH, Chronic Renal Insuffiency, Diabetic Nephropathy, Other (See Below). Denies: Acute Renal Failure, Renal Calculus, Retention, Urinary, STD, Urinary Incontinence, UTI, Recurrent Other Genitourinary History: Stage III diabetic nephropathy. Benign right renal cyst Musculoskeletal History: Reports: Arthritis, Back Pain, Chronic, Fracture, Neck Pain, Chronic, Osteoarthritis, Osteoporosis, Other (See Below). Denies: Gout, RA, SLE Other Musculoskeletal History: Rib fractures as above. Periprosthetic left proximal humeral/shoulder fracture on 02/10/18 with no additional surgery required. Previous Left shoulder fracture with status total arthroplasty as below. Chronic pain syndrome with chronic narcotic use. 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 Scoliosis. Neurological History: Reports: Alzheimers Disease, Brain Injury, Concussion, CVA, Head Trauma, Neuropathy, Diabetic, Neuropathy, Peripheral, TIA, Other (See Below). Denies: Cerebral Aneurysms, Headaches, Chronic, Migraines, MS, Parkinson's, Seizure, Vertigo Other Neuro History: CVA on 09/20/06. 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 History of hallucinations. Right trigeminal neuralgia. Psychiatric History: Reports: Addiction, Alzheimers Disease, Anxiety, Dementia, Depression, Hallucinations, Panic Attack, Other (See Below). Denies: Abuse, Victim of, ADD, ADHD, Psych Hospitalization(s), PTSD, Suicide Attempt, Suicidal Ideation Other Psychiatric History: Chronic narcotic use including oxycodone, fentanyl, lidocaine patches, etc. Endocrine/Metabolic History: Reports: Diabetes, Type II, IDDM, Obesity/BMI 30+, Osteopenia, Osteoporosis, Vitamin D Deficiency, Other (See Below). Denies: Diabetes, Type I, Diabetes Mellitus, Type 3c, Hypothyroidism Other Endocrine/Metabolic History: Hypokalemia, testosterone deficiency. Hypoalbuminemia. Hematologic History: Reports: Anemia, B12 Deficiency, Blood Transfusion(s). Denies: Iron Deficiency Immunologic History: Reports: None. Denies: AIDS, HIV, SLE Dermatologic History: Reports: Other (See Below) Other Dermatologic History: Recurrent tinea corporis - Infectious Disease History Infectious Disease History: Reports: Chicken Pox, Shingles - Past Surgical History Head Surgeries/Procedures: Reports: None HEENT Surgical History: Reports: Cataract Surgery, Oral Surgery, Other (See Below) Other HEENT Surgeries/Procedures: Bilateral cataract surgery in 2012. Multiple teeth extractions. Cardiovascular Surgical History: Reports: Carotid Endarterectomy, Coronary A rtery Bypass, Coronary Artery Stent, Percutaneous Transluminal Angioplasty, Other (See Below) Other Cardiovascular Surgeries/Procedures: CABG in October 2002. Respiratory Surgical History: Reports: Other (See Below) Other Respiratory Surgeries/Procedures: Right-sided thorascopic examination with subsequent conversion to open procedure/thoracotomy with drainage of empyema and decortication of the right lower lobe on 04/29/17. GI Surgical History: Reports: Colonoscopy, EGD, Polypectomy, Other (See Below) Other GI Surgeries/Procedures: EGD on 12/04/18 with previous evaluation in 2001. Male Surgical History: Reports: Other (See Below) Other Male Surgeries/Procedures: Bilateral orchidectomy. Note scrotal plastic surgery as below. Neurological Surgical History: Reports: C-Spine, Lumbar Spine, Other (See Below) Other Neurological Surgeries/Procedures: C4C6 discectomy with spinal fusion in August 2005. Musculoskeletal Surgical History: Reports: Carpal Tunnel, Joint Replacement, ORIF, Shoulder Surgery, Other (See Below) Other Musculoskeletal Surgeries/Procedures:: ORIF with open proximal humeral fracture reduction on 03/01/18. Left shoulder total arthroplasty. Bilateral carpal tunnel syndrome. Dermatological Surgical History: Reports: Plastic Surgical Reconstruction/Repair, Other (See Below) Other Dermatological Surgeries/Procedures: R[place]ro cutaneous fistula repair on 01/13/17. 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 - Past Imaging History Past Imaging History: Reports: Cardiac Echo (Last cardiac echocardiogram on 12/01/18 with ejection fraction of 55% and otherwise findings as above. Previous echocardiogram on 04/26/17.), CAT Scan (CT of the abdomen and pelvis with IV contrast on 02/01/19. Coronary CT of the chest on 12/14/17. CT of the head on 01/25/18. CT of the chest on 12/14/17. CTA of the chest on 12/01/18 positive for small PE as above.), Event Monitor (10/15/16.), Sleep Study, Stress Testing (Persantine Cardiolite stress test on 05/16/18 was indeterminate with ejection fraction of 54% with negative follow-up Lexiscan PET scan of the heart on 05/16/18.), Swallow Study (Negative on 05/09/17.), Ultrasound (Negative right upper quadrant abdominal ultrasound on 12/02/18), Venous Doppler (Negative venous Doppler studies of the lower extremities on 11/30/18.) Social & Family History - Family History Family Medical History: Noncontributory - Tobacco Use Smoking Status *Q: Never Smoker Tobacco Use Within Last Twelve Months: No Used Tobacco, but Quit: No Smoking Cessation Information Provided To Patient: No Second Hand Smoke Exposure: No Second Hand Smoke Education Provided: No - Caffeine Use Caffeine Use: Reports: Soda Caffeine Use Comment: dt coke x 2 per day - Living Situation & Occupation Living situation: Reports: Extended Care Facility ([facility]) Occupation: Retired ED ROS GENERAL - Review of Systems Review Of Systems: Comprehensive ROS is negative, except as noted in HPI. ED EXAM, SKIN/RASH Exam: See Below Exam Limited By: No Limitations General Appearance: Alert, WD/WN, No Apparent Distress Eye Exam: Bilateral Eye: EOMI, Normal Fundi, Normal Inspection (No nystagmus), PERRL Ears: Normal External Exam, Normal Canal, Normal TMs, Hearing Loss (Bilateral presbycusis with bilateral hearing aid therapy) Nose: Normal Inspection, Normal Mucosa, No Blood Throat/Mouth: Normal Inspection, Normal Lips, Normal Teeth (Multiple missing teeth with no acute trauma), Normal Gums, Normal Oropharynx, Normal Voice, No Airway Compromise, Other (No sign of tongue injury). No: Dysphagia, Perioral Cyanosis Head: Normocephalic, Other (4.5 cm laceration over the left superior occipital region with no crepitation, deformity, foreign body, sign of fracture, etc.). No: Facial Swelling, Facial Tenderness, Sinus Tenderness Neck: Supple, Non-Tender, Full Range of Motion, Carotid Bruit (Mild bilateral carotid bruits). No: Lymphadenopathy (L), Lymphadenopathy (R), Thyromegaly Respiratory/Chest: No Respiratory Distress, Lungs Clear, Normal Breath Sounds, No Accessory Muscle Use, Chest Non-Tender. No: Pleural Rub Cardiovascular: Normal Peripheral Pulses, Regular Rate, Rhythm, No Gallop, No JVD, No Murmur, No Rub. No: No Edema (Dependent edema as below), Gallop/S3, Gallop/S4, Friction Rub Peripheral Pulses: 2+: Radial (L), Radial (R), Dorsalis Pedis (L), Dorsalis Pedis (R) GI/Abdominal: Normal Bowel Sounds, Soft, Non-Tender, No Organomegaly, No Distention, No Abnormal Bruit, No Mass, Pelvis Stable, Other (Obese. Multiple areas of mild subcutaneous ecchymosis secondary to his insulin injections). No: Guarding (Male) Exam: Deferred Rectal (Males) Exam: Deferred Back Exam: Full Range of Motion, Other (Moderate scoliosis). No: CVA Tenderness (L), CVA Tenderness (R), Muscle Spasm, Paraspinal Tenderness, Vertebral Tenderness Extremities: Normal Range of Motion, Non-Tender, Normal Capillary Refill, Pedal Edema (Trace bilateral pedal/pretibial edema), Other (Dressings over the dorsal aspects of the distal right anterior tibial and right dorsal footold with no evidence of drainage, etc.. No evidence of right foot injury, tenderness, etc. by my exam.). No: Emma's Sign Neurological: Normal Reflexes (Negative Babinski's), Confused (Stable by history mild organic brain syndrome) Psychiatric: Normal Affect Skin: Ecchymosis (As above), Wound/Incision (As above). No: Diaphoretic Location, Skin: Head (New), Lower Extremity, Right (Old as above) Characteristics: Linear Associated features: Tenderness (Mild at head laceration site) Lymphatic: No Adenopathy ED SKIN PROCEDURES - Laceration/Wound Repair Left Upper Occipital Head Appearance: Subcutaneous, Clean Distal NVT: Neuro & Vascular Intact, No Tendon Injury Anesthetic Type: Local Local Anesthesia - Lidocaine (Xylocaine): 1% Plain Local Anesthetic Volume: Other (8 ml) Skin Prep: Chlorhexidine (Hibiciens), Providone-Iodine (Betadine) Saline Irrigation (cc's): 0 Exploration/Debridement/Repair: Wound Explored, In a Bloodless Field, Explored to Base, No Foreign Material Found, Multiple Flaps Aligned Closed with: Sutures Lac/Wound length In cm: 4.5 Suture Size: 4-0 # of Sutures: 8 Suture Type: Nylon, Interrupted, Simple Sterile Dressing Applied: Nurse Tetanus Status Addressed: Yes Complications: No Progress/Comments: Note initial attempt of repair with large helena was unsuccessful secondary to significant tension in the laceration site with subsequent excellent results with suture repair Course - Vital Signs Last Recorded V/S: Last Vital Signs Temp 36.4 C 03/28/20 16:48 Pulse 83 03/28/20 16:48 Resp 21 H 03/28/20 16:48 BP 130/76 03/28/20 16:48 Pulse Ox 93 L 03/28/20 16:48 Vital Signs - 24 hr 03/28/20 16:48 Temperature [ 36.4 C Temporal] Pulse, 83 Peripheral [ Right Pulse Oximetry] Respiratory 21 H Rate Blood Pressure 130/76 [Right Upper Arm] O2 Sat by Pulse 93 L Oximetry - Orders/Labs/Meds Orders: Active Orders 24 hr Category Date Time Status Cardiac Monitoring [RC] . DIRECTED Care 03/28/20 16:58 Active Vaccines to be Administered [RC] PER UNIT ROUTINE Care 03/28/20 16:54 Active Obtain Past Medical Record [OM.PC] Routine Oth 03/28/20 16:52 Active Labs: None Meds: Medications Discontinued Medications Generic Name Dose Route Start Last Admin Trade Name Freq PRN Reason Stop Dose Admin Diphtheria/Tetanus/Acell Pertussis 0.5 ml 03/28/20 16:54 03/28/20 17:03 Adacel IM 03/28/20 16:55 0.5 ml .ONCE ONE Administration Lidocaine HCl 5 ml 03/28/20 16:53 03/28/20 17:02 Xylocaine-Mpf 1% INJECT 03/28/20 16:54 5 ml ONETIME ONE Administration Lidocaine HCl 5 ml 03/28/20 16:54 03/28/20 17:02 Xylocaine-Mpf 1% INJECT 03/28/20 16:55 5 ml ONETIME ONE Administration Neomycin/Polymyxin/Bacitracin 1 each 03/28/20 16:53 03/28/20 17:02 Triple Antibiotic Oint TOP 03/28/20 16:54 1 each ONETIME ONE Administration - Radiology Interpretation Free Text/Narrative:: trekking guide shows a bundle branch block with normal sinus rhythm and heart rate in the 80s with no ectopy or arrhythmia. Departure - Departure Time of Disposition: 20:47 Disposition: DC/Tfer to [facility] 61 Preliminary Cause of *Q: Sepsis & Multi System Organ Failure Clinical Impression: Laceration, COPD (chronic obstructive pulmonary disease), IDDM (insulin dependent diabetes mellitus), Coronary artery disease, Hypertension, Organic brain syndrome - Discharge Information *PRESCRIPTION DRUG MONITORING PROGRAM REVIEWED*: Not Applicable *COPY OF PRESCRIPTION DRUG MONITORING REPORT IN PATIENT BJORN: Not Applicable Instructions: Head Injury, Adult, [id number] Referrals: Connie Beck PA [Primary Care Provider] - Forms: ED Department Discharge Additional Instructions: 1. Follow up with your regular provider in 10-14 days as needed, if symptoms persist. Bring these discharge instructions with you to that visit.. 2. Sutures may be removed by [facility] staff versus regular provider in 14 days 3. Antibacterial soap wash/soak with subsequent antibacterial dressing such as Neosporin, etc. as directed 2 times per day until the wound or laceration site completely heals. Keep the area clean and dry with activity restrictions as discussed. Never use hydrogen peroxide for wound care. 4. Head precautions as directed-see form. 5. Continue strict fall precautions as before 6. Please remember that we are ALWAYS here for you and want to answer any questions you may have. Feel free to call the hospital any time and we call you back OPAL. Sepsis Event Note (ED) - Focused Exam Vital Signs: Vital Signs Temp Pulse Resp BP Pulse Ox 03/28/20 16:48 36.4 C 83 21 H 130/76 93 L - Problem List & Annotations (1) Laceration SNOMED Code(s): 573746371 Code(s): KKM5529 - Status: Acute Priority: High Current Visit: No Onset Date: 03/28/20 Annotation/Comment:: Excellent results with laceration repair as above. TDAP was given. Wound care as per discharge instructions. Head precautions, etc. as below. (2) Organic brain syndrome SNOMED Code(s): 051002473 Code(s): F09 - UNSP MENTAL DISORDER DUE TO KNOWN PHYSIOLOGICAL CONDITION Status: Chronic Priority: Medium Current Visit: No Annotation/Comment:: Stable by history with chronic narcotic use which could affect mental status and cause recurrent falls. Fall precautions, head precautions, etc. to be initiated by [facility] staff as per discharge instructions. Continue to observe closely by regular provider. (3) Coronary artery disease SNOMED Code(s): 15402525 Code(s): I25.10 - ATHSCL HEART DISEASE OF [place] CORONARY ARTERY W/O ANG PCTRS Status: Chronic Priority: Medium Current Visit: No Anno tation/Comment:: No chest pain or anginal type symptoms. Note Status post CABG and previous PTCA/stent with known history of CHF, left bundle branch block, etc.. Qualifiers: Coronary Disease-Associated Artery/Lesion type: bypass graft [place] vs. transplanted heart: [place] heart Associated angina: without angina Qualified Code(s): I25.810 - Atherosclerosis of coronary artery bypass graft(s) without angina pectoris (4) Hypertension SNOMED Code(s): 39390767 Code(s): I10 - ESSENTIAL (PRIMARY) HYPERTENSION Status: Chronic Priority: Medium Current Visit: No Annotation/Comment:: Stable in the emergency room Qualifiers: Hypertension type: essential hypertension Qualified Code(s): I10 - Essential (primary) hypertension (5) COPD (chronic obstructive pulmonary disease) SNOMED Code(s): 06134308 Code(s): J44.9 - CHRONIC OBSTRUCTIVE PULMONARY DISEASE, UNSPECIFIED Status: Chronic Priority: Medium Current Visit: No Annotation/Comment:: No recent fever or bronchitic type symptoms. Note additional history of sleep apnea. Qualifiers: COPD type: emphysema Emphysema type: panlobular Qualified Code(s): J43.1 - Panlobular emphysema (6) Osteoarthritis SNOMED Code(s): 314843256 Code(s): M19.90 - UNSPECIFIED OSTEOARTHRITIS, UNSPECIFIED SITE Status: Chronic Priority: Medium Current Visit: No Annotation/Comment:: Otherwise stable by history with no apparent additional injuries from today's fall. Qualifiers: Osteoarthritis location: multiple joints Osteoarthritis type: primary Qualified Code(s): M89.49 - Other hypertrophic osteoarthropathy, multiple sites (7) IDDM (insulin dependent diabetes mellitus) SNOMED Code(s): 88192570 Code(s): E11.9 - TYPE 2 DIABETES MELLITUS WITHOUT COMPLICATIONS; Z79.4 - FDC (CURRENT) USE OF INSULIN Status: Chronic Priority: Medium Current Visit: No Annotation/Comment:: Note diabetic nephropathy, neuropathy, etc. Continue to observe closely by [facility] staff and his regular provider with apparent Accu-Chek in the 200s, which was taken by the [facility] staff immediately prior to transfer to our facility, per history from the electric motor tester assembler. - Problem List Review Problem List Initiated/Reviewed/Updated: Yes - My Orders Last 24 Hours: My Active Orders 03/28/20 16:52 Obtain Past Medical Record [OM.PC] Routine 03/28/20 16:54 Vaccines to be Administered [RC] PER UNIT ROUTINE 03/28/20 16:58 Cardiac Monitoring [RC] . DIRECTED - Assessment/Plan Last 24 Hours: My Active Orders 03/28/20 16:52 Obtain Past Medical Record [OM.PC] Routine 03/28/20 16:54 Vaccines to be Administered [RC] PER UNIT ROUTINE 03/28/20 16:58 Cardiac Monitoring [RC] . DIRECTED Assessment:: As above Plan: As above. Extensive precautions were given to the patient and [facility] staff, who are in agreement with the treatment plan. See Patient Instructions for further treatment and plan.
[2020-03-28] MEDS: Bacitracin/Neomycin/Polymyxin B Oint 0.9 GM U/D Packet TOP ONE (17:02)
[2020-03-28] MEDS: Diphtheria,Pertussis(Acell),Tetanus Vaccine 0.5 ML SDV IM ONE (17:03)
== END 2020-03-28 20:47 ==
LOC: LL.ED 16:48
DX: S01.01XA Laceration without foreign body of scalp, initial encounter (principal); J44.9 Chronic obstructive pulmonary disease, unspecified; I25.10 Atherosclerotic heart disease of native coronary artery without angina pectoris; F09 Unspecified mental disorder due to known physiological condition; I13.0 Hypertensive heart and chronic kidney disease with heart failure and stage 1 through stage 4 chronic kidney disease, or unspecified chronic kidney disease; E11.22 Type 2 diabetes mellitus with diabetic chronic kidney disease; N18.9 Chronic kidney disease, unspecified; I50.9 Heart failure, unspecified; M41.9 Scoliosis, unspecified; E78.00 Pure hypercholesterolemia, unspecified; I25.2 Old myocardial infarction; K21.9 Gastro-esophageal reflux disease without esophagitis; E11.21 Type 2 diabetes mellitus with diabetic nephropathy; M19.90 Unspecified osteoarthritis, unspecified site; E11.42 Type 2 diabetes mellitus with diabetic polyneuropathy; G30.9 Alzheimer's disease, unspecified; F02.80 Dementia in other diseases classified elsewhere, unspecified severity, without behavioral disturbance, psychotic disturbance, mood disturbance, and anxiety; F41.9 Anxiety disorder, unspecified; F32.9 Major depressive disorder, single episode, unspecified; E66.9 Obesity, unspecified; Z68.32 Body mass index [BMI] 32.0-32.9, adult; Z86.73 Personal history of transient ischemic attack (TIA), and cerebral infarction without residual deficits; Z23 Encounter for immunization; Z95.1 Presence of aortocoronary bypass graft; Z88.1 Allergy status to other antibiotic agents; Z88.5 Allergy status to narcotic agent; Z88.8 Allergy status to other drugs, medicaments and biological substances; Z79.899 Other long term (current) drug therapy; Z79.4 Long term (current) use of insulin; Z79.02 Long term (current) use of antithrombotics/antiplatelets; W05.0XXA Fall from non-moving wheelchair, initial encounter; Y92.129 Unspecified place in nursing home as the place of occurrence of the external cause
CPT/HCPCS: 12002; 90471; 90715; 99283; J2001

== ENCOUNTER 2020-05-04 12:59 | Emergency (ER) | payer OTHER ==
--- NOTE | 2020-05-04 14:41 | EDM.PDOC ---
ED HPI GENERAL MEDICAL PROBLEM - General Chief Complaint: General Stated Complaint: fall Time Seen by Provider: 05/04/20 13:32 Source of Information: Reports: Patient, Other ([facility] staff) History Limitations: Reports: No Limitations - History of Present Illness INITIAL COMMENTS - FREE TEXT/NARRATIVE: Patient comes from [facility] to be checked out after he fell while in his bath room. Reports he tripped over his shoe. Did bump top of right head during fall but no LOC. Also complains of some right shoulder discomfort/mild neck discomfort. Denies other new pain/injuries. Staff at [facility] were concerned that patient's pupils did not look quite the same. headache Pain Score (Numeric/FACES): 3 - Related Data Allergies Allergy/AdvReac Type Severity Reaction Status Date / Time cephalexin Allergy Intermediate Nausea Verified 05/04/20 13:00 clavulanic acid Allergy Intermediate Nausea Verified 05/04/20 13:00 [From Augmentin] codeine Allergy Intermediate Nausea Verified 05/04/20 13:00 metoclopramide Allergy Intermediate Nausea Verified 05/04/20 13:00 amoxicillin Allergy Mild Nausea Verified 05/04/20 13:00 Home Meds: Home Meds Alum Hydrox/Mag Hydrox/Simeth [Mag-Al Plus] 5 ml PO QID PRN 11/17/17 [History] Cholecalciferol (Vitamin D3) [Vitamin D3] 2,000 unit PO DAILY 11/17/17 [History] Clopidogrel Bisulfate [Clopidogrel] 75 mg PO DAILY@20 11/17/17 [History] DULoxetine [Cymbalta] 60 mg PO DAILY@12 11/17/17 [History] Fluticasone Furoate [Flonase Sensimist] 2 sprays INH DAILY 11/17/17 [History] Folic Acid 1 mg PO DAILY@1200 11/17/17 [History] Furosemide 80 mg PO DAILY 11/17/17 [History] Insulin Aspart [NovoLOG] 3 units SUBCUT TID 11/17/17 [History] Insulin Glargine,Hum.Rec.Anlog [Lantus Solostar] 10 unit SQ DAILY@199911/17/17 [History] Isosorbide Mononitrate [Isosorbide Mononitrate ER] 60 mg PO DAILY 11/17/17 [History] Methyl Salicylate/Menthol [Muscle Rub] 1 applic TP QID PRN 11/17/17 [History] Metoprolol Tartrate 12.5 mg PO BID 11/17/17 [History] Omeprazole 40 mg PO DAILY 11/17/17 [History] Potassium Chloride 10 meq PO DAILY@1200 11/17/17 [History] Pravastatin Sodium [Pravachol] 10 mg PO DAILY@20 11/17/17 [History] Pregabalin [Lyrica] 100 mg PO TID 11/17/17 [History] Riboflavin (Vitamin B2) [Vitamin B-2] 100 mg PO DAILY 11/17/17 [History] Sennosides/Docusate Sodium [Sennosides-Docusate Sodium] 1 each PO BID 11/17/17 [History] diphenhydrAMINE HCL [Benadryl] 25 mg PO Q8HR PRN 11/17/17 [History] fentaNYL [Fentanyl] 12 mcg TD Q48H 11/17/17 [History] fentaNYL [Fentanyl] 25 mcg TD Q48H 11/17/17 [History] guaiFENesin/Dextromethorphan [Gs Tussin Dm Cough Syrup] 10 ml PO Q4HR PRN 11/17/17 [History] hydrOXYzine pamoate [Hydroxyzine Pamoate] 25 mg PO TID 11/17/17 [History] oxyCODONE 5 mg PO Q4H PRN 11/17/17 [History] Calcium Carbonate [Tums Extra Strength] 750 mg PO DAILY PRN 11/30/18 [History] Divalproex Sodium [Depakote Sprinkle] 500 mg PO DAILY@20 11/30/18 [History] Donepezil HCl [Aricept] 10 mg PO BID 11/30/18 [History] Ondansetron [Zofran] 4 mg PO DAILY 11/30/18 [History] QUEtiapine [SEROquel] 25 mg PO DAILY 11/30/18 [History] QUEtiapine [SEROquel] 100 mg PO DAILY@20 11/30/18 [History] bisacodyL [Dulcolax] 5 mg PO DAILY PRN 11/30/18 [History] oxyCODONE 5 mg PO DAILY 11/30/18 [History] Albuterol Sulfate 1 vial INH BID 05/22/19 [History] Clotrimazole [Lotrimin AF 1% Crm] 1 dose TOP BID 05/22/19 [History] Dextran 70/Hypromellose [Artificial Tears Eye Drops] 2 drop EYEBOTH Q4H PRN 05/22/19 [History] Lidocaine 4% [Xylocaine 4% Top Soln] 1 dose TOP BID 05/22/19 [History] Lidocaine 5% [Lidoderm 5%] 2 patch TOP DAILY 05/22/19 [History] Loratadine 10 mg PO DAILY 05/22/19 [History] Magnesium Hydroxide [Milk of Magnesia] 30 ml PO DAILY PRN 05/22/19 [History] Menthol/Camphor [Sarna Anti-Itch Lotion] 1 dose TOP Q6H PRN 05/22/19 [History] Miconazole Nitrate [Micro-Guard] 1 dose TOP BID 05/22/19 [History] Pregabalin [Lyrica] 25 mg PO TID 05/22/19 [History] QUEtiapine [SEROquel] 50 mg PO 1600 05/22/19 [History] amLODIPine [Norvasc] 5 mg PO DAILY 05/22/19 [History] bisacodyL [Dulcolax] 10 mg PO DAILY PRN 05/22/19 [History] Past Medical History HEENT History: Reports: Allergic Rhinitis, Cataract, Hard of Hearing, Impaired Vision, Other (See Below). Denies: Glaucoma, Macular Degeneration, Otitis Media, Retinal Detachment Other HEENT History: Presbycusis with bilateral hearing aid therapy. Patient wears glasses. Possible diabetic retinopathy with additional history of right sided versus bilateral ischemic optic neuropathy. Cardiovascular History: Reports: Arrhythmia, Blood Clots/VTE/DVT, Bypass, CAD, Cardiomyopathy, Heart Failure, High Cholesterol, Hypertension, CT, PTCA, PVD, Stents, Other (See Below). Denies: Afib, Aneurysm, Heart Murmur, Syncope Other Cardiovascular History: CT on 10/15/02. Complete bifascicular bundle-branch block with cardiomegaly. Left atrial enlargement by echocardiogram. Nonsymptomatic PACs and atrial tachycardia by event monitor Elevated d-dimer on 11/30/18 secondary to small left upper lobe pulmonary embolism with negative venous Doppler studies of the lower extremities. Respiratory History: Reports: Bronchitis, Recurrent, COPD, Intubation, Previous, Sleep Apnea, Other (See Below). Denies: Asthma, Intubation, Difficult, PE, Pneumonia, Recurrent, Pneumothorax, Pulmonary Fibrosis, TB Other Respiratory History: Small left upper lobe pulmonary nodule with additional 2 small right lower lobe pulmonary nodules by CT scan in 2019. Additional small left upper lobe PE confirmed by CTA of the chest on 12/01/18 wi th no current anticoagulation therapy.. Old right sixth and seventh rib fractures by chest x-ray. History of acute respiratory failure. Gastrointestinal History: Reports: Chronic Constipation, Colon Polyp, Diverticulosis, GERD, Hiatal Hernia, Other (See Below). Denies: Celiac Disease, Cholelithiasis, Fecal Incontinence, Gastritis, GI Bleed, Hemorrhoids, Hepatitis, Inflammatory Bowel Disease, Irritable Bowel Syndrome, Jaundice, Pancreatitis, PUD Other Gastrointestinal History: Small hiatal hernia by EGD in 2019. Diverticulosis with previous history of diverticulitis. Genitourinary History: Reports: BPH, Chronic Renal Insuffiency, Diabetic Nephropathy, Other (See Below). Denies: Acute Renal Failure, Renal Calculus, Retention, Urinary, STD, Urinary Incontinence, UTI, Recurrent Other Genitourinary History: Stage III diabetic nephropathy. Benign right renal cyst Musculoskeletal History: Reports: Arthritis, Back Pain, Chronic, Fracture, Neck Pain, Chronic, Osteoarthritis, Osteoporosis, Other (See Below). Denies: Gout, RA, SLE Other Musculoskeletal History: Rib fractures as above. Periprosthetic left proximal humeral/shoulder fracture on 02/10/18 with no additional surgery required. Previous Left shoulder fracture with status total arthroplasty as below. Chronic pain syndrome with chronic narcotic use. [place]'s disease by bone scan. Scoliosis. Neurological History: Reports: Alzheimers Disease, Brain Injury, Concussion, CVA, Head Trauma, Neuropathy, Diabetic, Neuropathy, Peripheral, TIA, Other (See Below). Denies: Cerebral Aneurysms, Headaches, Chronic, Migraines, MS, Parkinson's, Seizure, Vertigo Other Neuro History: CVA on 09/20/06. 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 History of hallucinations. Right trigeminal neuralgia. Psychiatric History: Reports: Addiction, Alzheimers Disease, Anxiety, Dementia, Depression, Hallucinations, Panic Attack, Other (See Below). Denies: Abuse, Victim of, ADD, ADHD, Psych Hospitalization(s), PTSD, Suicide Attempt, Suicidal Ideation Other Psychiatric History: Chronic narcotic use including oxycodone, fentanyl, lidocaine patches, etc. Endocrine/Metabolic History: Reports: Diabetes, Type II, IDDM, Obesity/BMI 30+, Osteopenia, Osteoporosis, Vitamin D Deficiency, Other (See Below). Denies: Diabetes, Type I, Diabetes Mellitus, Type 3c, Hypothyroidism Other Endocrine/Metabolic History: Hypokalemia, testosterone deficiency. Hypoalbuminemia. Hematologic History: Reports: Anemia, B12 Deficiency, Blood Transfusion(s). Denies: Iron Deficiency Immunologic History: Reports: None. Denies: AIDS, HIV, SLE Dermatologic History: Reports: Other (See Below) Other Dermatologic History: Recurrent tinea corporis - Infectious Disease History Infectious Disease History: Reports: Chicken Pox, Shingles - Past Surgical History Head Surgeries/Procedures: Reports: None HEENT Surgical History: Reports: Cataract Surgery, Oral Surgery, Other (See Below) Other HEENT Surgeries/Procedures: Bilateral cataract surgery in 2012. Multiple teeth extractions. Cardiovascular Surgical History: Reports: Carotid Endarterectomy, Coronary Artery Bypass, Coronary Artery Stent, Percutaneous Transluminal Angioplasty, Other (See Below) Other Cardiovascular Surgeries/Procedures: CABG in October 2002. Respiratory Surgical History: Reports: Other (See Below) Other Respiratory Surgeries/Procedures: Right-sided thorascopic examination with subsequent conversion to open procedure/thoracotomy with drainage of empyema and decortication of the right lower lobe on 04/29/17. GI Surgical History: Reports: Colonoscopy, EGD, Polypectomy, Other (See Below) Other GI Surgeries/Procedures: EGD on 12/04/18 with previous evaluation in 2001. Male Surgical History: Reports: Other (See Below) Other Male Surgeries/Procedures: Bilateral orchidectomy. Note scrotal plastic surgery as below. Neurological Surgical History: Reports: C-Spine, Lumbar Spine, Other (See Below) Other Neurological Surgeries/Procedures: C4C6 discectomy with spinal fusion in August 2005. Musculoskeletal Surgical History: Reports: Carpal Tunnel, Joint Replacement, ORIF, Shoulder Surgery, Other (See Below) Other Musculoskeletal Surgeries/Procedures:: ORIF with open proximal humeral fracture reduction on 03/01/18. Left shoulder total arthroplasty. Bilateral carpal tunnel syndrome. Dermatological Surgical History: Reports: Plastic Surgical Reconstruction/Repair, Other (See Below) Other Dermatological Surgeries/Procedures: [place] cutaneous fistula repair on 01/13/17. 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 - Past Imaging History Past Imaging History: Reports: Cardiac Echo (Last cardiac echocardiogram on 12/01/18 with ejection fraction of 55% and otherwise findings as above. Previous echocardiogram on 04/26/17.), CAT Scan (CT of the abdomen and pelvis with IV contrast on 02/01/19. Coronary CT of the chest on 12/14/17. CT of the head on 01/25/18. CT of the chest on 12/14/17. CTA of the chest on 12/01/18 positive for small PE as above.), Event Monitor (10/15/16.), Sleep Study, Stress Testing (Persantine Cardiolite stress test on 05/16/18 was indeterminate with ejection fraction of 54% with negative follow-up Lexiscan PET scan of the heart on 05/16/18.), Swallow Study (Negative on 05/09/17.), Ultrasound (Negative right upper quadrant abdominal ultrasound on 12/02/18), Venous Doppler (Negative venous Doppler studies of the lower extremities on 11/30/18.) Social & Family History - Family History Family Medical History: Noncontributory - Caffeine Use Caffeine Use: Reports: Soda Caffeine Use Comment: dt coke x 2 per day - Living Situation & Occupation Living situation: Reports: Extended Care Facility ([facility]) Occupation: Retired ED ROS GENERAL - Review of Systems Review Of Systems: See Below Constitutional: Reports: No Symptoms HEENT: Denies: Nosebleed, Nose Pain, Vision Change Respiratory: Reports: No Symptoms Cardiovascular: Denies: Chest Pain, Lightheadedness, Palpitations GI/Abdominal: Denies: Abdominal Pain, Nausea, Vomiting Musculoskeletal: Reports: Other (right shoulder discomfort. Mild neck discomfort. ) Skin: Reports: Other (abrasion top of right side of head) Neurological: Reports: Other (no reported acute changes). Denies: Dizziness, Headache, Change in Speech Psychiatric: Reports: No Symptoms ED EXAM, GENERAL - Physical Exam Exam: See Below Exam Limited By: No Limitations General Appearance: Alert, WD/WN, No Apparent Distress Eye Exam: Bilateral Eye: EOMI, PERRL (some mild morphology changes as patient has had cataract surgery) Ears: Hearing Grossly Normal Nose: No: Nasal Deformity, Nasal Swelling, Nasal Drainage Throat/Mouth: Normal Lips, Normal Voice, No Airway Compromise Head: Other (unremarkable exam except for abrasion top of head on right) Respiratory/Chest: No Respiratory Distress, Lungs Clear, Normal Breath Sounds, No Accessory Muscle Use, Chest Non-Tender Cardiovascular: Regular Rate, Rhythm, No Murmur GI/Abdominal: Soft, Non-Tender (Male) Exam: Deferred Rectal (Males) Exam: Deferred Back Exam: No: CVA Tenderness (L), CVA Tenderness (R), Muscle Spasm, Paraspinal Tenderness, Vertebral Tenderness Extremities: Non-Tender, Normal Capillary Refill, Other (able to raise right shoulder up in front of him and laterally without any obvious pain complaint) Neurological: Alert, Oriented, Other (overall neuromusc tone equal and appropriate) Psychiatric: Normal Affect, Normal Mood Skin Exam: Warm, Dry, Intact, Other (abrasion top of head on right) Course - Vital Signs Last Recorded V/S: Last Vital Signs Temp 36.1 C 05/04/20 13:16 Pulse 65 05/04/20 13:16 Resp 20 05/04/20 13:16 BP 116/52 L 05/04/20 13:16 Pulse Ox 93 L 05/04/20 13:16 - Orders/Labs/Meds Orders: Active Orders 24 hr Category Date Time Status Cervical Spine 2V or 3V [CR] Stat Exams 05/04/20 13:33 Ordered Head wo Cont [CT] Stat Exams 05/04/20 13:01 Taken Shoulder 1V Rt [CR] Stat Exams 05/04/20 13:33 Ordered - Re-Assessments/Exams Free Text/Narrative Re-Assessment/Exam: 05/04/20 15:52 CT of head unremarkable for acute changes. No acute fracture or dislocation identified on shoulder film. Degenerative changes/hardware noted on C-spine but no acute fracture noted. Pending Radiology review. OK to return to [facility] home. Patient appeared comfortable throughout his stay. Follow up as needed if new problems/concerns develop. Departure - Departure Time of Disposition: 14:38 Disposition: DC/Tfer to SNF 03 Condition: Good Clinical Impression: Fall Qualifiers: Encounter type: initial encounter Qualified Code(s): W19.XXXA - Unspecified fall, initial encounter Head contusion Qualifiers: Encounter type: initial encounter Contusion of head detail: scalp Qualified Code(s): S00.03XA - Contusion of scalp, initial encounter Contusion of shoulder, right Qualifiers: Encounter type: initial encounter Qualified Code(s): S40.011A - Contusion of right shoulder, initial encounter - Discharge Information *PRESCRIPTION DRUG MONITORING PROGRAM REVIEWED*: Not Applicable *COPY OF PRESCRIPTION DRUG MONITORING REPORT IN PATIENT JBORN: Not Applicable Referrals: Connie Beck PA [Primary Care Provider] - Forms: ED Department Discharge Additional Instructions: Observe for changes. Follow up as needed if there are additional concerns/changing symptoms. Sepsis Event Note (ED) - Evaluation Sepsis Screening Result: No Definite Risk - Focused Exam Vital Signs: Vital Signs Temp Pulse Resp BP Pulse Ox 05/04/20 13:16 36.1 C 65 20 116/52 L 93 L - My Orders Last 24 Hours: My Active Orders 05/04/20 13:01 Head wo Cont [CT] Stat 05/04/20 13:33 Cervical Spine 2V or 3V [CR] Stat Shoulder 1V Rt [CR] Stat - Assessment/Plan Last 24 Hours: My Active Orders 05/04/20 13:01 Head wo Cont [CT] Stat 05/04/20 13:33 Cervical Spine 2V or 3V [CR] Stat Shoulder 1V Rt [CR] Stat
== END 2020-05-04 14:15 ==
LOC: LL.ED 12:59
DX: S40.011A Contusion of right shoulder, initial encounter (principal); S00.03XA Contusion of scalp, initial encounter; I25.10 Atherosclerotic heart disease of native coronary artery without angina pectoris; I13.0 Hypertensive heart and chronic kidney disease with heart failure and stage 1 through stage 4 chronic kidney disease, or unspecified chronic kidney disease; I50.9 Heart failure, unspecified; E78.00 Pure hypercholesterolemia, unspecified; J44.9 Chronic obstructive pulmonary disease, unspecified; K21.9 Gastro-esophageal reflux disease without esophagitis; Z88.1 Allergy status to other antibiotic agents; Z88.5 Allergy status to narcotic agent; E11.21 Type 2 diabetes mellitus with diabetic nephropathy; N18.9 Chronic kidney disease, unspecified; E11.22 Type 2 diabetes mellitus with diabetic chronic kidney disease; G30.9 Alzheimer's disease, unspecified; F02.80 Dementia in other diseases classified elsewhere, unspecified severity, without behavioral disturbance, psychotic disturbance, mood disturbance, and anxiety; F41.9 Anxiety disorder, unspecified; I25.2 Old myocardial infarction; F32.9 Major depressive disorder, single episode, unspecified; E66.9 Obesity, unspecified; Z79.02 Long term (current) use of antithrombotics/antiplatelets; Z88.8 Allergy status to other drugs, medicaments and biological substances; Z79.4 Long term (current) use of insulin; Z79.899 Other long term (current) drug therapy; Z95.1 Presence of aortocoronary bypass graft; Z95.5 Presence of coronary angioplasty implant and graft; Z86.73 Personal history of transient ischemic attack (TIA), and cerebral infarction without residual deficits; Z86.718 Personal history of other venous thrombosis and embolism; W01.0XXA Fall on same level from slipping, tripping and stumbling without subsequent striking against object, initial encounter
CPT/HCPCS: 70450; 72040; 73020-RT; 99284-25

== ENCOUNTER 2021-04-10 14:47 | Emergency (ER) | payer OTHER ==
[2021-04-10] MEDS ORDERED: Sodium Chloride 0.9% 10 ML Syringe FLUSH PRN (14:48)
--- NOTE | 2021-04-10 14:50 | EDM.PDOC ---
ED HPI GENERAL MEDICAL PROBLEM - General Chief Complaint: Lower Extremity Injury/Pain Stated Complaint: right leg cellulitis Time Seen by Provider: 04/10/21 14:47 Source of Information: Reports: Patient, Long-Term Records History Limitations: Reports: No Limitations - History of Present Illness INITIAL COMMENTS - FREE TEXT/NARRATIVE: Patient comes emergency department today from the local half-way with concerns of worsening cellulitis. This patient does not give much history other than he has had a swelling in his leg for quite some time. Discussing with the half-way on the or of this month he was noticed to have some swelling and redness to his right lower extremity. He was initially started on Keflex for concerns of cellulitis. This did not improve so he was then switched to doxycycline. Today they noted that he had quite a bit more swelling and he was complaining of some pain to the right lower extremity and there was some cyanosis concerns of the right lower extremity. Therefore he was brought to the emergency department. Upon arrival he only complains of pain to his right lower extremity. He has no history of blood clots. He has no fever no chills. No chest pain no shortness of breath or difficulty breathing. No abdominal pain nausea or vomiting. He has had no PEs in the past or DVTs in the past. He denies any paresthesias of his right lower extremity. - Related Data Allergies Allergy/AdvReac Type Severity Reaction Status Date / Time cephalexin Allergy Intermediate Nausea Verified 05/04/20 13:00 clavulanic acid Allergy Intermediate Nausea Verified 05/04/20 13:00 [From Augmentin] codeine Allergy Intermediate Nausea Verified 05/04/20 13:00 metoclopramide Allergy Intermediate Nausea Verified 05/04/20 13:00 amoxicillin Allergy Mild Nausea Verified 05/04/20 13:00 Home Meds: Home Meds Alum Hydrox/Mag Hydrox/Simeth [Mag-Al Plus] 15 ml PO QID PRN 11/17/17 [History] Cholecalciferol (Vitamin D3) [Vitamin D3] 2,000 unit PO DAILY 11/17/17 [History] Clopidogrel Bisulfate [Clopidogrel] 75 mg PO DAILY@20 11/17/17 [History] DULoxetine [Cymbalta] 60 mg PO DAILY@12 11/17/17 [History] Fluticasone Furoate [Flonase Sensimist] 2 sprays NASBOTH DAILY 11/17/17 [History] Folic Acid 1 mg PO DAILY@119911/17/17 [History] Furosemide 40 mg PO DAILY 11/17/17 [History] Insulin Aspart [NovoLOG] 3 units SUBCUT BID@0800,1200 11/17/17 [History] Insulin Glargine,Hum.Rec.Anlog [Lantus Solostar] 30 unit SQ DAILY@199911/17/17 [History] Isosorbide Mononitrate [Isosorbide Mononitrate ER] 60 mg PO DAILY 11/17/17 [History] Methyl Salicylate/Menthol [Muscle Rub] 1 applic TP QID PRN 11/17/17 [History] Metoprolol Tartrate 12.5 mg PO Q12HR 11/17/17 [History] Omeprazole 40 mg PO DAILY 11/17/17 [History] Potassium Chloride 10 meq PO DAILY@119911/17/17 [History] Pravastatin Sodium [Pravachol] 10 mg PO DAILY@11/17/17 [History] Sennosides/Docusate Sodium [Sennosides-Docusate Sodium] 2 each PO BID 11/17/17 [History] diphenhydrAMINE HCL [Benadryl] 25 mg PO Q8HR PRN 11/17/17 [History] guaiFENesin/Dextromethorphan [Gs Tussin Dm Cough Syrup] 10 ml PO Q4HR PRN 11/17/17 [History] Calcium Carbonate [Tums Extra Strength] 750 mg PO QID PRN 11/30/18 [History] Divalproex Sodium [Depakote Sprinkle] 500 mg PO DAILY@11/30/18 [History] Donepezil HCl [Aricept] 10 mg PO DAILY@199911/30/18 [History] Ondansetron [Zofran] 4 mg PO DAILY 11/30/18 [History] bisacodyL [Dulcolax] 5 mg PO DAILY PRN 11/30/18 [History] oxyCODONE 5 mg PO DAILY PRN 11/30/18 [History] Dextran 70/Hypromellose [Artificial Tears Eye Drops] 2 drop EYEBOTH Q4H PRN 05/22/19 [History] Lidocaine 4% [Xylocaine 4% Top Soln] 1 dose TOP TID PRN 05/22/19 [History] Loratadine 10 mg PO DAILY 05/22/19 [History] Magnesium Hydroxide [Milk of Magnesia] 30 ml PO DAILY PRN 05/22/19 [History] Pregabalin [Lyrica] 50 mg PO BID 05/22/19 [History] amLODIPine [Norvasc] 5 mg PO DAILY 05/22/19 [History] bisacodyL [Dulcolax] 10 mg RECTAL DAILY PRN 05/22/19 [History] Apixaban [Eliquis] 5 mg PO ASDIRECTED #60 tablet 04/10/21 [Rx] Benzonatate [Tessalon Perle] 200 mg PO TID PRN 04/10/21 [History] Carboxymethylcellulose Sodium [Artificial Tears] 1 drop EYERT QID 04/10/21 [History] Dextromethorphan/guaiFENesin [Robitussin DM] 10 ml PO DAILY 04/10/21 [History] Ferrous Sulfate 325 mg PO DAILY 04/10/21 [History] Furosemide [Lasix] 100 mg PO DAILY 04/10/21 [History] Insulin Aspart [Novolog Flexpen] 6 unit SQ DAILY@1700 04/10/21 [History] Isosorbide Mononitrate [Imdur] 30 mg PO DAILY 04/10/21 [History] Lactulose [Chronulac] 10 gm PO DAILY 04/10/21 [History] Lactulose [Chronulac] 10 gm PO DAILY PRN 04/10/21 [History] Megestrol [Megace] 40 mg PO DAILY 04/10/21 [History] Melatonin 3 mg PO DAILY@199904/10/21 [History] Menthol/Camphor [Sarna Anti-Itch Lotion] 1 applic TP Q6H PRN 04/10/21 [History] Nitroglycerin 1 tab SL ASDIRECTED PRN 04/10/21 [History] polyethylene glycoL 3350 [MiraLAX] 17 gm PO Q48H PRN 04/10/21 [History] prednisoLONE acetate [Pred Forte 1% Ophth Susp] 1 drop EYERT DAILY 04/10/21 [History] Past Medical History HEENT History: Reports: Allergic Rhinitis, Cataract, Hard of Hearing, Impaired Vision, Other (See Below). Denies: Glaucoma, Macular Degeneration, Otitis Media, Retinal Detachment Other HEENT History: Presbycusis with bilateral hearing aid therapy. Patient wears glasses. Possible diabetic retinopathy with additional history of right sided versus bilateral ischemic optic neuropathy. Cardiovascular History: Reports: Arrhythmia, Blood Clots/VTE/DVT, Bypass, CAD, Cardiomyopathy, Heart Failure, High Cholesterol, Hypertension, GA, PTCA, PVD, Stents, Other (See Below). Denies: Afib, Aneurysm, Heart Murmur, Syncope Other Cardiovascular History: GA on 10/15/02. Complete bifascicular bundle-branch block with cardiomegaly. Left atrial enlargement by echocardiogram. Nonsymptomatic PACs and atrial tachycardia by event monitor Elevated d-dimer on 11/30/18 secondary to small left upper lobe pulmonary embolism with negative venous Doppler studies of the lower extremities. Respiratory History: Reports: Bronchitis, Recurrent, COPD, Intubation, Previous, Sleep Apnea, Other (See Below). Denies: Asthma, Intubation, Difficult, PE, Pneumonia, Recurrent, Pneumothorax, Pulmonary Fibrosis, TB Other Respiratory History: Small left upper lobe pulmonary nodule with additional 2 small right lower lobe pulmonary nodules by CT scan in 2019. Additional small left upper lobe PE confirmed by CTA of the chest on 12/01/18 with no current anticoagulation therapy.. Old right sixth and seventh rib fractures by chest x-ray. History of acute respiratory failure. Gastrointestinal History: Reports: Chronic Constipation, Colon Polyp, Diverticulosis, GERD, Hiatal Hernia, Other (See Below). Denies: Celiac Disease, Cholelithiasis, Fecal Incontinence, Gastritis, GI Bleed, Hemorrhoids, Hepatitis, Inflammatory Bowel Disease, Irritable Bowel Syndrome, Jaundice, Pancreatitis, PUD Other Gastrointestinal History: Small hiatal hernia by EGD in 2019. Diverticulosis with previous history of diverticulitis. Genitourinary History: Reports: BPH, Chronic Renal Insuffiency, Diabetic Nephropathy, Other (See Below). Denies: Acute Renal Failure, Renal Calculus, Retention, Urinary, STD, Urinary Incontinence, UTI, Recurrent Other Genitourinary History: Stage III diabetic nephropathy. Benign right renal cyst Musculoskeletal History: Reports: Arthritis, Back Pain, Chronic, Fracture, Neck Pain, Chronic, Osteoarthritis, Osteoporosis, Other (See Below). Denies: Gout, RA, SLE Other Musculoskeletal History: Rib fractures as above. Periprosthetic left proximal humeral/shoulder fracture on 02/10/18 with no additional surgery required. Previous Left shoulder fracture with status total arthroplasty as below. Chronic pain syndrome with chronic narcotic use. [employer]'s disease by bone scan. Scoliosis. Neurological History: Reports: Alzheimers Disease, Brain Injury, Concussion, CVA, Head Trauma, Neuropathy, Diabetic, Neuropathy, Peripheral, TIA, Other (See Below). Denies: Cerebral Aneurysms, Headaches, Chronic, Migraines, MS, Parkinson's, Seizure, Vertigo Other Neuro History: CVA on 09/20/06. 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 History of hallucinations. Right trigeminal neuralgia. Psychiatric History: Reports: Addiction, Alzheimers Disease, Anxiety, Dementia, Depression, Hallucinations, Panic Attack, Other (See Below). Denies: Abuse, Victim of, ADD, ADHD, Psych Hospitalization(s), PTSD, Suicide Attempt, Suicidal Ideation Other Psychiatric History: Chronic narcotic use including oxycodone, fentanyl, lidocaine patches, etc. Endocrine/Metabolic History: Reports: Diabetes, Type II, IDDM, Obesity/BMI 30+, Osteopenia, Osteoporosis, Vitamin D Deficiency, Other (See Below). Denies: Diabetes, Type I, Diabetes Mellitus, Type 3c, Hypothyroidism Other Endocrine/Metabolic History: Hypokalemia, testosterone deficiency. Hypoalbuminemia. Hematologic History: Reports: Anemia, B12 Deficiency, Blood Transfusion(s). Denies: Iron Deficiency Immunologic History: Reports: None. Denies: AIDS, HIV, SLE Dermatologic History: Reports: Other (See Below) Other Dermatologic History: Recurrent tinea corporis - Infectious Disease History Infectious Disease History: Reports: Chicken Pox, Shingles - Past Surgical History Head Surgeries/Procedures: Reports: None HEENT Surgical History: Reports: Cataract Surgery, Oral Surgery, Other (See B elow) Other HEENT Surgeries/Procedures: Bilateral cataract surgery in 2012. Multiple teeth extractions. Cardiovascular Surgical History: Reports: Carotid Endarterectomy, Coronary Artery Bypass, Coronary Artery Stent, Percutaneous Transluminal Angioplasty, Other (See Below) Other Cardiovascular Surgeries/Procedures: CABG in October 2002. Respiratory Surgical History: Reports: Other (See Below) Other Respiratory Surgeries/Procedures: Right-sided thorascopic examination with subsequent conversion to open procedure/thoracotomy with drainage of empyema and decortication of the right lower lobe on 04/29/17. GI Surgical History: Reports: Colonoscopy, EGD, Polypectomy, Other (See Below) Other GI Surgeries/Procedures: EGD on 12/04/18 with previous evaluation in 2001. Male Surgical History: Reports: Other (See Below) Other Male Surgeries/Procedures: Bilateral orchidectomy. Note scrotal plastic surgery as below. Neurological Surgical History: Reports: C-Spine, Lumbar Spine, Other (See Below) Other Neurological Surgeries/Procedures: C4C6 discectomy with spinal fusion in August 2005. Musculoskeletal Surgical History: Reports: Carpal Tunnel, Joint Replacement, ORIF, Shoulder Surgery, Other (See Below) Other Musculoskeletal Surgeries/Procedures:: ORIF with open proximal humeral fracture reduction on 03/01/18. Left shoulder total arthroplasty. Bilateral carpal tunnel syndrome. Dermatological Surgical History: Reports: Plastic Surgical Re construction/Repair, Other (See Below) Other Dermatological Surgeries/Procedures: [place] cutaneous fistula repair on 01/13/17. 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 - Past Imaging History Past Imaging History: Reports: Cardiac Echo (Last cardiac echocardiogram on 12/01/18 with ejection fraction of 55% and otherwise findings as above. Previous echocardiogram on 04/26/17.), CAT Scan (CT of the abdomen and pelvis with IV contrast on 02/01/19. Coronary CT of the chest on 12/14/17. CT of the head on 01/25/18. CT of the chest on 12/14/17. CTA of the chest on 12/01/18 positive for small PE as above.), Event Monitor (10/15/16.), Sleep Study, Stress Testing (Persantine Cardiolite stress test on 05/16/18 was indeterminate with ejection fraction of 54% with negative follow-up Lexiscan PET scan of the heart on 05/16/18.), Swallow Study (Negative on 05/09/17.), Ultrasound (Negative right up per quadrant abdominal ultrasound on 12/02/18), Venous Doppler (Negative venous Doppler studies of the lower extremities on 11/30/18.) Social & Family History - Family History Family Medical History: No Pertinent Family History - Caffeine Use Caffeine Use: Reports: Soda Caffeine Use Comment: dt coke x 2 per day - Living Situation & Occupation Living situation: Reports: Extended Care Facility ([facility] in [facility]) Occupation: Retired Review of Systems - Review of Systems Review Of Systems: Comprehensive ROS is negative, except as noted in HPI. ED EXAM, GENERAL - Physical Exam Exam: See Below Exam Limited By: No Limitations General Appearance: Alert, WD/WN, No Apparent Distress Nose: Normal Inspection, Normal Mucosa Throat/Mouth: Normal Inspection, Normal Lips, Normal Oropharynx, Normal Voice Head: Atraumatic, Normocephalic Neck: Normal Inspection, Supple, Non-Tender, Full Range of Motion Respiratory/Chest: No Respiratory Distress, Lungs Clear, Normal Breath Sounds, No Accessory Muscle Use, Chest Non-Tender Cardiovascular: Normal Peripheral Pulses, Regular Rate, Rhythm Peripheral Pulses: 1+: Posterior Tibial (L), Posterior Tibial (R) (Monophasic easily dopplerable), Dorsalis Pedis (L), Dorsalis Pedis (R) (Easily dopplerable monophasic), 2+: Femoral (L), Femoral (R) GI/Abdominal: Normal Bowel Sounds, Soft, Non-Tender (Male) Exam: No Hernia Back Exam: Normal Inspection Extremities: Emma's Sign, Other (On the anterior aspect of the right tibia there is erythematous confluent papular rash that appears to be venous stasis more than anything.). No: Normal Inspection (Right lower extremity has quite a bit of edema all the way up the leg into the groin. There is a small amount of aspect of what appears to be cyanosis of the right foot. Easily palpable pulses. There is no breaks in the skin. There is tenderness exquisitely throughout the calf. ), Increased Warmth, Pallor Neurological: Alert, Oriented Psychiatric: Normal Affect, Normal Mood Skin Exam: Warm, Dry, Intact, Normal Color, No Rash Lymphatic: No Adenopathy Course - Vital Signs Last Recorded V/S: Last Vital Signs Temp 98.2 F 04/10/21 14:51 Pulse 102 H 04/10/21 14:51 Resp 20 04/10/21 14:51 BP 161/80 H 04/10/21 14:51 Pulse Ox 95 04/10/21 14:51 - Orders/Labs/Meds Orders: Active Orders 24 hr Category Date Time Status Peripheral IV Insertion Adult [OM.PC] Stat Oth 04/10/21 14:49 Ordered Labs: Laboratory Tests 04/10/21 04/10/21 04/10/21 Range/Units 15:15 15:15 15:15 WBC 10.1 (4.0-10.2) K/uL RBC 4.01 L (4.33-5.41) M/uL Hgb 12.7 L (13.1-16.8) g/dL Hct 37.0 L (39.0-49.0) % MCV 92.3 (84.0-98.0) fL MCH 31.7 (28.2-33.3) pg MCHC 34.3 (31.7-36.0) g/dL RDW 13.6 (11.2-14.1) % Plt Count 223 (150-350) K/uL Neut % (Auto) 85.9 H (45.0-80.0) % Lymph % (Auto) 8.9 L (10.0-50.0) % [place] % (Auto) 4.9 (2.0-14.0) % Eos % (Auto) 0.1 (0.0-5.0) % Baso % (Auto) 0.2 (0.0-2.0) % Neut # (Auto) 8.69 H (1.40-7.00) K/uL Lymph # (Auto) 0.90 (0.50-3.50) K/uL [place] # (Auto) 0.50 (0.00-1.00) K/uL Eos # (Auto) 0.01 (0.00-0.50) K/uL Baso # (Auto) 0.02 (0.00-0.20) K/uL PT 10.0 (9.5-12.0) SEC INR 1.0 APTT 21.6 L (24.5-32.8) SEC D-Dimer, Quantitative (0-400) ng/mL Sodium 128 L D (136-145) mmol/L Potassium 4.9 (3.5-5.1) mmol/L Chloride 93 L (98-107) mmol/L Carbon Dioxide 21.3 (21.0-32.0) mmol/L Anion Gap 18.6 H (7-15) meq/L BUN 44 H (7-18) mg/dL Creatinine 2.12 H (0.51-1.17) mg/dL Est Cr Clr Drug Dosing 27.78 mL/min Estimated GFR (MDRD) 30 mL/min Glucose 603 H* (70-99) mg/dL Lactic Acid (0.4-2.0) mmol/L Calcium 8.6 (8.5-10.1) mg/dL Total Bilirubin 0.4 (0.2-1.0) mg/dL AST 6 L (15-37) U/L ALT 19 (12-78) U/L Alkaline Phosphatase 92 (46-116) IU/L Total Protein 7.6 (6.4-8.2) g/dL Albumin 3.2 L (3.4-5.0) g/dL 04/10/21 04/10/21 Range/Units 15:15 15:15 WBC (4.0-10.2) K/uL RBC (4.33-5.41) M/uL Hgb (13.1-16.8) g/dL Hct (39.0-49.0) % MCV (84.0-98.0) fL MCH (28.2-33.3) pg MCHC (31.7-36.0) g/dL RDW (11.2-14.1) % Plt Count (150-350) K/uL Neut % (Auto) (45.0-80.0) % Lymph % (Auto) (10.0-50.0) % [place] % (Auto) (2.0-14.0) % Eos % (Auto) (0.0-5.0) % Baso % (Auto) (0.0-2.0) % Neut # (Auto) (1.40-7.00) K/uL Lymph # (Auto) (0.50-3.50) K/uL [place] # (Auto) (0.00-1.00) K/uL Eos # (Auto) (0.00-0.50) K/uL Baso # (Auto) (0.00-0.20) K/uL PT (9.5-12.0) SEC INR APTT (24.5-32.8) SEC D-Dimer, Quantitative 3510 H (0-400) ng/mL Sodium (136-145) mmol/L Potassium (3.5-5.1) mmol/L Chloride (98-107) mmol/L Carbon Dioxide (21.0-32.0) mmol/L Anion Gap (7-15) meq/L BUN (7-18) mg/dL Creatinine (0.51-1.17) mg/dL Est Cr Clr Drug Dosing mL/min Estimated GFR (MDRD) mL/min Glucose (70-99) mg/dL Lactic Acid 2.7 H (0.4-2.0) mmol/L Calcium (8.5-10.1) mg/dL Total Bilirubin (0.2-1.0) mg/dL AST (15-37) U/L ALT (12-78) U/L Alkaline Phosphatase (46-116) IU/L Total Protein (6.4-8.2) g/dL Albumin (3.4-5.0) g/dL Meds: Medications Discontinued Medications Generic Name Dose Route Start Last Admin Trade Name Freq PRN Reason Stop Dose Admin Apixaban 10 mg 04/10/21 16:14 04/10/21 16:39 Apixaban 5 Mg Tab PO 04/10/21 16:15 10 mg ONETIME ONE Administration Insulin Human Regular 5 unit 04/10/21 16:27 04/10/21 16:38 Insulin Regular, Human 100 Units/Ml 3 Ml Vial SUBCUT 04/10/21 16:28 5 unit ONETIME ONE Administration Sodium Chloride 10 ml 04/10/21 14:48 Sodium Chloride 0.9% 10 Ml Syringe FLUSH ASDIRECTED PRN Keep Vein Open - Re-Assessments/Exams Free Text/Narrative Re-Assessment/Exam: 04/10/21 19:22 Laboratory evaluation CBC is rather unremarkable. D-dimer is quite elevated at 3510. His sodium is 128 although his blood sugar 603 with a corrected pseudohyponatremia from his hyperglycemia of 136. His creatinine is 2.12 at baseline BUN 44 His lactic acid is mildly elevated at 2.7. We do not have ultrasound available at this time. I cannot complete a CTA of the lower extremity due to his kidney function. POCUS completed and reviewed extemporaneously by myself clearly has a right noncompressible external iliac vein that extends all the way down to his calf concerning for a DVT large large. Again he has no chest pain or shortness of breath or hypoxia or tachycardia. I am unable to really complete a complete exam to ensure that there is not other pathology of his right lower extremity although this is really the evidence of a DVT. I called and spoke with Dr. Pandya at [facility] in [place]. HPI ER COURSE findings and concerns were relayed to him primarily about his DVT in RLE. He agrees by clinical exam as well as ultrasound reviewed and completed extemporaneously by myself that treatment with Eliquis would be course of action. He does need further evaluation to see the extent of the clot for how long he needs to be on Eliquis 3 months versus 6 months. At this time start him on Eliquis and have him follow-up with an ultrasound to see the extent of the clot. Anything new or worse he is to recheck. The patient was given 10 mg of Eliquis in the emergency department. Talking with the half-way he chronically has quite elevated blood sugars on the daily which is about 400. He is just 600 today in the emergency department. There is no signs of acidosis with a normal CO2. He was given a dose of 5 units of regular insulin subcutaneously. His blood sugar improved down to the 4 50s. This is really something that primary care needs to follow-up on and get better control of it. We will discharge her back to the half-way. I did set up an order for an ultrasound to be completed for definitive diagnosis and extent of clot burden. Consideration for a CTA as well looking for the extension of the clot further in the inferior vena cava would determine length of anticoagulation 3 months versus 6 months. Discharge instructions as below are explained to the patient. He is comfortable this plan his questions were answered. Detailed explanation was also sent with the patient back to the half-way for primary care follow-up. Departure - Departure Time of Disposition: 16:34 Disposition: DC/Tfer to [facility] 03 Clinical Impression: Hyperglycemia due to diabetes mellitus DVT (deep venous thrombosis) Qualifiers: DVT location: lower extremity Affected thrombotic vein of extremity: unspecified vein of extremity Chronicity: acute Laterality: right Qualified Code(s): I82.401 - Acute embolism and thrombosis of unspecified deep veins of right lower extremity - Discharge Information Prescriptions: Apixaban [Eliquis] 5 mg PO ASDIRECTED #60 tablet Referrals: Connie Beck PA [Primary Care Provider] - Forms: ED Department Discharge Additional Instructions: Eliquis 10mg by mouth twice daily for the next 7 days. Then 5mg twice daily. RX sent to the pharmacy. First dose given in the ED at 1630. Needs a ultrasound of the right lower extremity next week. Clearly DVT by my extemporaneous POCUS ultrasound. Unable to complete CT due to kidney function. May consider a CTA to see extensive aspect of the clot which is clearly up into the external illiac vein. PCP to address chronic hyperglycemia. Needs better chronic daily maintenance. Was given 5 units regular insulin SUBcut for BS of 603 without evidence of acidosis. 456 on discharge which sounds about baseline Return to the ED if new or worsening symptoms especially CP SOB hypoxia etc. Contact PCP today with concerns of DVT RLE as well as chronic hyperglycemia. Sepsis Event Note (ED) - Focused Exam Vital Signs: Vital Signs Temp Pulse Resp BP Pulse Ox 04/10/21 14:51 98.2 F 102 H 20 161/80 H 95 - My Orders Last 24 Hours: My Active Orders 04/10/21 14:49 Peripheral IV Insertion Adult [OM.PC] Stat - Assessment/Plan Last 24 Hours: My Active Orders 04/10/21 14:49 Peripheral IV Insertion Adult [OM.PC] Stat
[2021-04-10 15:54] LABS: ANION GAP 18.6 meq/L (7-15)
[2021-04-10] MEDS ORDERED: Apixaban 5 MG Tab PO ONE (16:14)
[2021-04-10] MEDS ORDERED: Insulin Regular, Human 100 Units/ML 3 ML Vial SUBCUT ONE (16:27)
[2021-04-10 16:37] LABS: PTT,PARTIAL THROMBOPLSTIN TIME 21.6 SEC (24.5-32.8)
== END 2021-04-10 18:10 ==
LOC: LL.ED 14:47 → UNDOADMOB 16:26 → LL.MS 16:26 → LL.ED 18:10
DX: I82.421 Acute embolism and thrombosis of right iliac vein (principal); E11.65 Type 2 diabetes mellitus with hyperglycemia; E11.40 Type 2 diabetes mellitus with diabetic neuropathy, unspecified; E11.22 Type 2 diabetes mellitus with diabetic chronic kidney disease; I13.0 Hypertensive heart and chronic kidney disease with heart failure and stage 1 through stage 4 chronic kidney disease, or unspecified chronic kidney disease; N18.9 Chronic kidney disease, unspecified; I50.9 Heart failure, unspecified; K21.9 Gastro-esophageal reflux disease without esophagitis; J44.9 Chronic obstructive pulmonary disease, unspecified; I25.2 Old myocardial infarction; I25.10 Atherosclerotic heart disease of native coronary artery without angina pectoris; E78.00 Pure hypercholesterolemia, unspecified; Z88.1 Allergy status to other antibiotic agents; Z88.0 Allergy status to penicillin; Z88.5 Allergy status to narcotic agent; Z88.8 Allergy status to other drugs, medicaments and biological substances; Z79.4 Long term (current) use of insulin; Z79.01 Long term (current) use of anticoagulants; Z79.02 Long term (current) use of antithrombotics/antiplatelets; Z79.899 Other long term (current) drug therapy; Z86.73 Personal history of transient ischemic attack (TIA), and cerebral infarction without residual deficits
CPT/HCPCS: 36415; 80053; 83605; 85025; 85379; 85610; 85730; 99284; A9270; J1815